=== PATIENT | male | born 1990 | race American Indian/Alaskan Native ===

== ENCOUNTER 2017-12-03 00:22 | Inpatient (IN) | payer SELFPAY ==
[2017-12-03] MEDS ORDERED: NACL 0.9% 500 ML 500 ML IV ONE (00:43)
[2017-12-03] MEDS ORDERED: NACL 0.9% 1000 ML 1,000 ML IV ONE ×5 (00:45→06:05)
--- NOTE | 2017-12-03 00:49 | Emergency Department Report ---
HPI - General Time Seen by Provider: 12/03/17 00:31 - HPI HPI: 27-year-old [place] male presents to the emergency department by EMS from home with possible drug overdose. The patient's mother allegedly called EMS. When EMS got to him he was diaphoretic, tachycardic and lethargic. He was given Narcan with some response. The patient admitted to EMS and now also to myself that he did crystal meth this evening by ingestion and that he has a history of using meth. Patient presents with a fever, tachycardia. He says he's been dealing with a cough and diarrhea over the past few days. He has a history of HIV but does not take any medications for it and is not followed by any primary care physician or infectious disease. No recent travel or sick contacts at home. ED Past Medical Hx - Medications Home Medications: Home Medications Medication Instructions Recorded Confirmed Last Taken Type No Known Home Medications [No 12/03/17 12/03/17 Unknown History Reported Home Medications] ED Review of Systems ROS: Stated complaint: POSS OD Other details as noted in HPI Constitutional: diaphoresis, fever Eyes: denies: eye pain, eye discharge, vision change ENT: denies: ear pain, throat pain Respiratory: cough. denies: shortness of breath Cardiovascular: denies: chest pain, palpitations Gastrointestinal: diarrhea. denies: vomiting Genitourinary: denies: urgency, dysuria Musculoskeletal: denies: back pain, joint swelling, arthralgia Skin: denies: rash, lesions Neurological: denies: headache, numbness Physical Exam - Physical Exam Physical Exam: GENERAL: Patient is ill-appearing. HENT: Normocephalic. Atraumatic. Patient has dry mucous membranes. EYES: Extraocular motions are intact. Pupils equal reactive to light bilaterally. NECK: Supple. Trachea is midline. CHEST/LUNGS: Clear to auscultation. There is no respiratory distress noted. HEART/CARDIOVASCULAR: Regular. There is moderate tachycardia. There is no murmur. ABDOMEN: Abdomen is soft, nontender. Patient has normal bowel sounds. SKIN: Skin is hot but dry. NEURO: Patient is drowsy but is arousable. Once awake, the patient is cooperative. The patient has normal speech. Withdrawals from painful stimuli. MUSCULOSKELETAL: There is no tenderness or deformity. There is no limitation range of motion. There is no evidence of acute injury. - Central Line Placement Right Femoral Consent Obtained: verbal consent Time Out Performed: Yes Patient Placed on Monitor/Pulse Ox: Yes MD Prep: mask, gown, gloves Central Line Prep: Chlorhexidine scrub Local Anesthesia Used: Lidocaine 1% Amount of Anesthesia Used (mls): 3 Ultrasound Used for Placement: Yes Central Line Lumen Inserted: triple Central Line Position: good blood return, all ports aspirated, flus, sutured in place with nyl Dressing Applied: Tegaderm, sterile gauze/tape Patient Tolerated Procedure: well Complications: none ED Medical Decision Making - Lab Data Result diagrams: 12/03/17 00:52 12/03/17 00:52 - EKG Data -: EKG Interpreted by Me EKG shows normal: sinus rhythm, axis, intervals, QRS complexes, ST-T waves Rate: tachycardia (115 bpm) - EKG Data When compared to previous EKG there are: previous EKG unavailable Interpretation: other (Sinus Tach) - Radiology Data Radiology results: image reviewed interpreted by me: Chest x-ray does not show any acute process. There are no pleural effusions, obvious pneumonia and there is no pneumothorax. Abdominal x-ray shows nonspecific rectal bowel gas. - Medical Decision Making The patient presented with nausea, vomiting and copious diarrhea as well as a fever and tachycardia after doing crystal meth. The patient was found by EMS to be lethargic, diaphoretic and hypotensive. There was some improvement in his mentation with some Narcan. Since the patient has been in the emergency department he has been easily arousable but is ill-appearing. Patient's labs show a lactic acidosis, acute renal insufficiency, elevated liver function tests. He has a fever, hypotension and tachycardia. He was given 3-4 L of IV fluid without any improvement of the hypotension and therefore a central line was placed and the patient was started on pressors. Abdominal and chest x-rays did not show any acute process. The patient has a presentation of septic shock but no source of infection has been found. C. difficile assay was sent and blood cultures also sent. He was started empirically on some Zosyn and Flagyl. Patient was admitted to the ICU by the hospitalist service. - Differential Diagnosis sepsis, septic shock, pneumonia, C. difficile, substance abuse Critical Care Time: Yes Critical care time in (mins) excluding proc time.: 35 Critical care attestation.: If time is entered above; I have spent that time in minutes in the direct care of this critically ill patient, excluding procedure time. Critical care time spent on this patient and during his initial evaluation, multiple re-evaluations , ordering and interpretation of labs and imaging, titration of pressures, IV fluid resuscitation, administration of medications, disposition planning. This does not include time spent doing the central line procedure. Critical Care Time: 35 minutes ED Disposition Clinical Impression: Methamphetamine abuse, Lactic acidosis, Septic shock Diarrhea Qualifiers: Diarrhea type: unspecified type Qualified Code(s): R19.7 - Diarrhea, unspecified Hypotension Qualifiers: Hypotension type: unspecified hypotension type Qualified Code(s): I95.9 - Hypotension, unspecified Disposition: DC-09 OP ADMIT IP TO THIS HOSP Is pt being admited?: Yes Condition: Serious Time of Disposition: 06:58
[2017-12-03] MEDS ORDERED: ZOSYN/NS 4.5GM/100ML 4.5 GM/100 ML VIAL IV ONE (01:00)
[2017-12-03 01:30] LABS: Alanine Aminotransferase 58 units/L (7-56); Albumin 2.5 g/dL (3.9-5); BUN/Creatinine Ratio 8; Blood Urea Nitrogen 16 mg/dL (9-20); Hemolysis Index 0
[2017-12-03 01:35] LABS: Basophils % (Auto) 0.2 % (0.0-1.8); Eosinophils % (Auto) 0.5 % (0.0-4.3); Hematocrit 36.1 % (35.5-45.6); Hemoglobin 11.3 gm/dl (11.8-15.2); Lymphocytes # (Auto) 0.4 K/mm3 (1.2-5.4); Lymphocytes % (Auto) 10.7 % (13.4-35.0); Mean Corpuscular HGB Conc 31 % (32-34); Mean Corpuscular Hemoglobin 23 pg (28-32); Mean Corpuscular Volume 74 fl (84-94); Platelet Count 304 K/mm3 (140-440); Red Blood Count 4.88 M/mm3 (3.65-5.03); Red Cell Distribution Width 13.6 % (13.2-15.2)
[2017-12-03] MEDS ORDERED: TYLENOL PO ONE (01:40)
--- NOTE | 2017-12-03 01:43 | XRay Report ---
FINAL REPORT PROCEDURE: XR CHEST 1V AP TECHNIQUE: Chest radiograph anteroposterior view. CPT 04710 HISTORY: fever COMPARISON: No prior studies are available for comparison. FINDINGS: Heart: Normal. Mediastinum/Vessels: Normal. Lungs/Pleural space: Lungs are expanded. There are no infiltrates, effusions or pneumothoraces.. Bony thorax: No acute osseous abnormality. Life support devices: None. IMPRESSION: No acute cardiopulmonary abnormality.
[2017-12-03] MEDS: LEVOPHED DRIP 4 MG/NS 250 ML 4 MG/250 ML BAG IV SCH ×2 (06:19→10:59)
--- NOTE | 2017-12-03 06:34 | XRay Report ---
FINAL REPORT PROCEDURE: XR ABDOMEN 2V TECHNIQUE: Abdominal radiograph, single supine AP view. HISTORY: diarrhea, abd pain, fever COMPARISON: No prior studies are available for comparison. FINDINGS: Bowel gas pattern:Nonobstructive. Masses or calcifications:None. Bony structures:No significant abnormality. Other:There is a right-sided central venous catheter. The tip is in the right common iliac vein.. IMPRESSION: There is no bowel obstruction, bowel wall thickening or fecal impaction. There is no free air.
[2017-12-03] MEDS ORDERED: NACL 0.9% 1000 ML IV ONE (08:14)
[2017-12-03] MEDS ORDERED: VANCOMYCIN 1,500 MG in NACL 0.9% 500 ML 500 ML IV ONE (08:14)
--- NOTE | 2017-12-03 08:19 | History and Physical Report ---
History of Present Illness Date of examination: 12/03/17 Date of admission: 12/03/17 Chief complaint: OD, HYPOTENSION, History of present illness: Patient is a 27 year old male with past medical hx of HIV non compliant with medications and also hx of IVDA, last use a day prior to presentation, presents to the ED via EMS with possible drug overdose. The patient's mother allegedly called EMS. When EMS got to him he was diaphoretic, tachycardic and lethargic. He was given Narcan with some response. The patient admitted to EMS, ED doctor and now also to myself that he did crystal meth this evening by ingestion and that he has a history of using meth. Patient presents with a fever, tachycardia and Hypotension. He says he's been dealing with a cough and diarrhea over the past few days. He has a history of HIV but does not take any medications for it and is not followed by any primary care physician or infectious disease, He inital was monitored by [facility]. No recent travel or sick contacts at home. In the ED the patient was started on sepsis protocol with 4.5 Liters of fluids given but remained hypotensive with SBP in the 80s requiring Initiation of PRESSORS. Past History Past Medical History: HIV/AIDS, other Past Surgical History: No surgical history Social history: no significant social history, IV drug use, full code. denies: smoking Family history: no significant family history Medications and Allergies Allergies Allergy/AdvReac Type Severity Reaction Status Date / Time No Known Allergies Allergy Unverified 12/03/17 00:48 Active Meds: Active Medications Norepinephrine (Levophed Drip 4 Mg/Ns 250 Ml) 4 mg in 250 mls @ 7.5 mls/hr IV TITR NATALIA; Protocol Last Titration: 12/03/17 07:50 Dose: 8 mcg/min, 30 mls/hr Sodium Chloride (Nacl 0.9% 1000 Ml) 1,000 mls @ 200 mls/hr IV ONCE ONE Stop: 12/03/17 11:04 Last Admin: 12/03/17 06:19 Dose: 200 mls/hr Ascorbic Acid 1,500 mg/ Sodium (Chloride) 53 mls @ 50 mls/30 min IV Q6HR NATALIA Thiamine HCl 200 mg/ Sodium (Chloride) 52 mls @ 100 mls/hr IV Q12HR NATALIA Vancomycin HCl 1,500 mg/ (Sodium Chloride) 515 mls @ 333 mls/hr IV ONCE ONE; Protocol Stop: 12/03/17 09:46 Piperacillin Sod/Tazobactam Sod (Zosyn/Ns 4.5gm/100ml) 4.5 gm in 100 mls @ 200 mls/hr IV Q8HR NATALIA; Protocol Sodium Chloride (Nacl 0.9% 1000 Ml) 2,250 ml 30 ml/kg (2250 ml) IV ONCE ONE Stop: 12/03/17 08:15 Review of Systems All systems: negative Constitutional: fever, chills Gastrointestinal: diarrhea Exam - Constitutional Vitals: Temp Pulse Resp BP Pulse Ox 99 F 116 H 21 71/29 99 12/03/17 04:49 12/03/17 07:15 12/03/17 07:15 12/03/17 07:15 12/03/17 07:15 Results - Labs CBC & Chem 7: 12/03/17 00:52 12/03/17 00:52 Labs: Laboratory Last Values WBC 3.5 K/mm3 (4.5-11.0) L 12/03/17 00:52 RBC 4.88 M/mm3 (3.65-5.03) 12/03/17 00:52 Hgb 11.3 gm/dl (11.8-15.2) L 12/03/17 00:52 Hct 36.1 % (35.5-45.6) 12/03/17 00:52 MCV 74 fl (84-94) L 12/03/17 00:52 MCH 23 pg (28-32) L 12/03/17 00:52 MCHC 31 % (32-34) L 12/03/17 00:52 RDW 13.6 % (13.2-15.2) 12/03/17 00:52 Plt Count 304 K/mm3 (140-440) 12/03/17 00:52 Lymph % (Auto) 10.7 % (13.4-35.0) L 12/03/17 00:52 [place] % (Auto) 1.0 % (0.0-7.3) 12/03/17 00:52 Eos % (Auto) 0.5 % (0.0-4.3) 12/03/17 00:52 Baso % (Auto) 0.2 % (0.0-1.8) 12/03/17 00:52 Lymph # 0.4 K/mm3 (1.2-5.4) L 12/03/17 00:52 [place] # 0.0 K/mm3 (0.0-0.8) 12/03/17 00:52 Eos # 0.0 K/mm3 (0.0-0.4) 12/03/17 00:52 Baso # 0.0 K/mm3 (0.0-0.1) 12/03/17 00:52 Seg Neutrophils % 87.6 % (40.0-70.0) H 12/03/17 00:52 Seg Neutrophils # 3.1 K/mm3 (1.8-7.7) 12/03/17 00:52 APTT 39.3 Sec. (24.2-36.6) H 12/03/17 00:52 Sodium 137 mmol/L (137-145) 12/03/17 00:52 Potassium 3.8 mmol/L (3.6-5.0) 12/03/17 00:52 Chloride 102.0 mmol/L (98-107) 12/03/17 00:52 Carbon Dioxide 23 mmol/L (22-30) 12/03/17 00:52 Anion Gap 16 mmol/L 12/03/17 00:52 BUN 16 mg/dL (9-20) 12/03/17 00:52 Creatinine 2.0 mg/dL (0.8-1.5) H 12/03/17 00:52 Estimated GFR 48 ml/min 12/03/17 00:52 BUN/Creatinine Ratio 8 % 12/03/17 00:52 Glucose 100 mg/dL (75-100) 12/03/17 00:52 Lactic Acid 3.30 mmol/L (0.7-2.0) H* 12/03/17 05:13 Calcium 8.0 mg/dL (8.4-10.2) L 12/03/17 00:52 Total Bilirubin 0.70 mg/dL (0.1-1.2) 12/03/17 00:52 AST 91 units/L (5-40) H 12/03/17 00:52 ALT 58 units/L (7-56) H 12/03/17 00:52 Alkaline Phosphatase 189 units/L (35-129) H 12/03/17 00:52 Total Creatine Kinase 112 units/L (55-170) 12/03/17 00:52 Troponin T < 0.010 ng/mL (0.00-0.029) 12/03/17 00:52 Total Protein 7.2 g/dL (6.3-8.2) 12/03/17 00:52 Albumin 2.5 g/dL (3.9-5) L 12/03/17 00:52 Albumin/Globulin Ratio 0.5 % 12/03/17 00:52 Salicylates < 0.3 mg/dL (2.8-20.0) L 12/03/17 00:52 Acetaminophen < 5.0 ug/mL (10.0-30.0) L 12/03/17 00:52 Plasma/Serum Alcohol < 0.01 % (0-0.07) 12/03/17 00:52 - Imaging and Cardiology Chest x-ray: image reviewed (NO NOTED ABNORMALITY) Abdominal x-ray: image reviewed (NO ABNORMALITY NOTED) Assessment and Plan Assessment and plan: Patient is a 27 year old male with past medical hx of HIV non compliant with medications and also hx of IVDA, last use a day prior to presentation, presents to the ED via EMS with possible drug overdose. The patient's mother allegedly called EMS. When EMS got to him he was diaphoretic, tachycardic and lethargic. He was given Narcan with some response. The patient admitted to EMS, ED doctor and now also to myself that he did crystal meth this evening by ingestion and that he has a history of using meth. Patient presents with a fever, tachycardia and Hypotension. He says he's been dealing with a cough and diarrhea over the past few days. He has a history of HIV but does not take any medications for it and is not followed by any primary care physician or infectious disease, He initial was monitored by [facility]. No recent travel or sick contacts at home. In the ED the patient was started on sepsis protocol with 4.5 Liters of fluids given but remained hypotensive with SBP in the 80s requiring Initiation of PRESSORS. SEPTIC SHOCK Acute Metabolic Encephalopathy-Resolved Severe Sepsis Lactic acidosis MIKE secondary to vasomotor nephropathy HIV ?presumed AIDS Non complaint Diarrhea-Colitis Anemia of chronic Disease IVDA-CRYSTAL METH LEUKOPENIA Tranaminitis Plan * Admit to ICU * Give additional fluid bolus * Continue pressors and wean as tolerated * follow blood cultures, stool for C/DIFF, * Burring Wheel Operator and ID consult * Emperic anbx with vanc, zosyn and flagy * Lymphocytes subset labs * Counselling provided about IVDA and medication * If no renal improvement will obtain Shoe Repair Supervisor consult * change out femoral line as soon as possible if pressor to continue * Replace electrolytes as needed * DVT/GI prophy * Plan of care discussed with patient and specialist. The high probability of a clinically significant, sudden or life threatening deterioration of the [GI, HOT SAW OPERATOR] system(s) required my full and direct attention, intervention and personal management. The aggregate critical care time was [75] minutes. This time is in addition to time spent performing reported procedures but includes the following: [X] Data Review and interpretation [X] Patient assessment and monitoring of vital signs [X] Documentation [X] Medication orders and management Advance Directives: Yes Plan of care discussed with patient/family: Yes
[2017-12-03] MEDS ORDERED: ZOSYN/NS 4.5GM/100ML 4.5 GM/100 ML VIAL IV SCH (09:00)
[2017-12-03] MEDS: FLAGYL 500 MG/100 ML 500 MG/100 ML BAG IV SCH ×2 (10:51→18:11)
--- NOTE | 2017-12-03 10:58 | Consultation ---
History of Present Illness - Reason for Consult Consult date: 12/03/17 septic shock Requesting physician: CARIDAD GOULD - History of Present Illness 27 y/o male with history of HIV non compliant with medications, lost HIV clinic f/u with [facility] 2 years ago and stopped his ART 2 years ago after losing his medical insurance, and also history IVDA - meth; admitted on 12/03/17 due to severe nausea, vomiting and diarrhea 24 hour after using IV meth. The patient's mother allegedly called EMS. When EMS got to him he was diaphoretic, tachycardic and lethargic. He was given Narcan with some response. He states he used tap water to dissolve meth and new syringe. Denies sharing needles. He is a MSM with multiple sexual partners, he does not use condom consistently. He reports cough with clear sputum for 24h since injection. In the ED, initial temperature 102.3, heart rate 148, respiration 24, O2 sat 95 , blood pressure 83/34. Initial white count 3.5. Hemoglobin 11.3. Platelets 304. Lactate 4. AST 91. ALT 58. Alkaline phosphatase 189. Creatinine 2. Chest x-ray negative. X-ray of the abdomen negative. Microbiology: Blood cultures: 12/03 ngtd Urine cultures: Current Antimicrobials: Zosyn Flagyl Vanco Previous Antimicrobials: Past History Past Medical History: HIV/AIDS, other Past Surgical History: No surgical history Social history: no significant social history, IV drug use, full code. denies: smoking Family history: no significant family history Medications and Allergies Allergies Allergy/AdvReac Type Severity Reaction Status Date / Time No Known Allergies Allergy Unverified 12/03/17 00:48 Home Medications Medication Instructions Recorded Confirmed Last Taken Type No Known Home Medications [No 12/03/17 12/03/17 Unknown History Reported Home Medications] Active Meds: Active Medications Norepinephrine (Levophed Drip 4 Mg/Ns 250 Ml) 4 mg in 250 mls @ 7.5 mls/hr IV TITR NATALIA; Protocol Last Titration: 12/03/17 10:50 Dose: 16 mcg/min, 60 mls/hr Sodium Chloride (Nacl 0.9% 1000 Ml) 1,000 mls @ 200 mls/hr IV ONCE ONE Stop: 12/03/17 11:04 Last Admin: 12/03/17 06:19 Dose: 200 mls/hr Ascorbic Acid 1,500 mg/ Sodium (Chloride) 53 mls @ 50 mls/30 min IV Q6HR NATALIA Thiamine HCl 200 mg/ Sodium (Chloride) 52 mls @ 100 mls/hr IV Q12HR NATALIA Piperacillin Sod/Tazobactam Sod (Zosyn/Ns 4.5gm/100ml) 4.5 gm in 100 mls @ 200 mls/hr IV Q8H NATALIA; Protocol Last Admin: 12/03/17 10:04 Dose: 200 mls/hr Metronidazole (Flagyl 500 Mg/100 Ml) 500 mg in 100 mls @ 100 mls/hr IV Q8H NATALIA ; Protocol Last Admin: 12/03/17 10:51 Dose: 100 mls/hr Review of Systems All systems: negative (as per HPI, rest of 10 point review of systems negative) Physical Examination - Physical Exam Narrative exam: General appearance: Alert in NAD, conversant Eyes: anicteric sclerae, moist conjunctivae; no lid-lag; PERRLA HENT: Atraumatic; oropharynx clear Neck: Trachea midline; supple, no thyromegaly or lymphadenopathy Lungs: CTA, with normal respiratory effort and no intercostal retractions CV: tachy Abdomen: Soft, non-tender; no masses or hepatosplenomegaly Extremities: No peripheral edema or extremity lymphadenopathy Skin: Normal temperature, turgor and texture; no rash, ulcers or subcutaneous nodules Psych: Appropriate affect, alert and oriented to person, place and time. Neuro: alert and oriented x 3. Moving all extermities Lines: right fem TLC - Constitutional Vitals: Vital Signs Temp Pulse Resp BP Pulse Ox 98.6 F 118 H 25 H 113/79 98 12/03/17 10:12 12/03/17 10:00 12/03/17 10:00 12/03/17 10:00 12/03/17 10:00 Temperature -Last 24 Hours Temperature 98.6 F Temperature 99 F Temperature 102.3 F Temperature 102.3 F Results - Labs CBC & Chem 7: 12/03/17 00:52 12/03/17 00:52 Labs: Abnormal lab results 12/03/17 12/03/17 12/03/17 Range/Units 00:52 00:52 00:52 WBC 3.5 L (4.5-11.0) K/mm3 Hgb 11.3 L (11.8-15.2) gm/dl MCV 74 L (84-94) fl MCH 23 L (28-32) pg MCHC 31 L (32-34) % Lymph % (Auto) 10.7 L (13.4-35.0) % Lymph # 0.4 L (1.2-5.4) K/mm3 Seg Neutrophils % 87.6 H (40.0-70.0) % APTT 39.3 H (24.2-36.6) Sec. Creatinine 2.0 H (0.8-1.5) mg/dL Lactic Acid (0.7-2.0) mmol/L Calcium 8.0 L (8.4-10.2) mg/dL AST 91 H (5-40) units/L ALT 58 H (7-56) units/L Alkaline Phosphatase 189 H (35-129) units/L Albumin 2.5 L (3.9-5) g/dL Salicylates (2.8-20.0) mg/dL Acetaminophen (10.0-30.0) ug/mL 12/03/17 12/03/17 12/03/17 Range/Units 00:52 00:52 00:52 WBC (4.5-11.0) K/mm3 Hgb (11.8-15.2) gm/dl MCV (84-94) fl MCH (28-32) pg MCHC (32-34) % Lymph % (Auto) (13.4-35.0) % Lymph # (1.2-5.4) K/mm3 Seg Neutrophils % (40.0-70.0) % APTT (24.2-36.6) Sec. Creatinine (0.8-1.5) mg/dL Lactic Acid 4.00 H* (0.7-2.0) mmol/L Calcium (8.4-10.2) mg/dL AST (5-40) units/L ALT (7-56) units/L Alkaline Phosphatase (35-129) units/L Albumin (3.9-5) g/dL Salicylates < 0.3 L (2.8-20.0) mg/dL Acetaminophen < 5.0 L (10.0-30.0) ug/mL 12/03/17 12/03/17 12/03/17 Range/Units 02:21 03:51 05:13 WBC (4.5-11.0) K/mm3 Hgb (11.8-15.2) gm/dl MCV (84-94) fl MCH (28-32) pg MCHC (32-34) % Lymph % (Auto) (13.4-35.0) % Lymph # (1.2-5.4) K/mm3 Seg Neutrophils % (40.0-70.0) % APTT (24.2-36.6) Sec. Creatinine (0.8-1.5) mg/dL Lactic Acid 2.80 H* 3.10 H* 3.30 H* (0.7-2.0) mmol/L Calcium (8.4-10.2) mg/dL AST (5-40) units/L ALT (7-56) units/L Alkaline Phosphatase (35-129) units/L Albumin (3.9-5) g/dL Salicylates (2.8-20.0) mg/dL Acetaminophen (10.0-30.0) ug/mL Assessment and Plan Assessment: 1) Severe Sepsis with septic shock: Present on admission, manifested by fever, tachycardia, hypotension, increased lactate. Etiology unclear. DDX. colitis, bacteremia, endocarditis, aspiration pneumonia. 2) Acute diarrhea: started after IV meth ? meth withdrawal. Doubt Cdiff 3) Acute encephalopathy: from meth intoxication/withdrawal 4) MIKE 5) HIV non compliant with medications, lost HIV clinic f/u with [facility] 2 years ago and stopped his ART 2 years ago after losing his medical insurance 6) Meth dependence 7) Multiple sexual partners, he does not use condom consistently. 8) Elevated LFTs - ? sepsis ? hepatitis. AST 91. ALT 58. Alkaline phosphatase 189. Plan: -follow-up blood cultures -check UA, urine culture -procalcitonin, C-reactive protein (CRP) -check TTE -once stable will get chest and abdominal CT -Obtain abdominal US eval GB and kidneys -stop zosyn -start cefepime -continue flagyl -continue vancomycin renally dosed -check CD4/VL, RPR, viral hepatitis Thank you for your consultation, will follow up with you. Mayra Albarado MD Infectious Diseases Specialist [facility] ([facility] M [phone] O [phone]
[2017-12-03 12:38] LABS: Bacteria,Urine 1+ /HPF (Negative); Bilirubin,Urine NEG (Negative); Blood,Urine LG (Negative); Color,Urine Amber (Yellow); Mucus,Urine FEW /HPF
[2017-12-03] MEDS: VITAMIN B-1 200 MG in NACL 0.9% 50 ML IV SCH ×2 (12:40→23:30)
[2017-12-03 12:44] LABS: RBC,Urine > 182.0 /HPF (0.0-6.0)
[2017-12-03 12:45] LABS: Benzodiazepines Screen,Urine PRESUMPTIVE NEGATIVE; Cannabinoid Screen,Urine PRESUMPTIVE NEGATIVE; Cocaine Screen,Urine PRESUMPTIVE NEGATIVE; Methadone Screen,Urine PRESUMPTIVE NEGATIVE; Opiate Screen,Urine PRESUMPTIVE NEGATIVE
[2017-12-03 12:56] LABS: Amphetamine Screen,Urine PRESUMPTIVE POSITIVE
[2017-12-03] MEDS: MAXIPIME/NS 2 GM/100 ML 2 GM/100 ML BAG IV SCH ×2 (13:15→23:38)
[2017-12-03 13:20] LABS: Hepatitis A Antibody IgM Non-Reactive (NonReactive); Hepatitis B Core IgM Non-Reactive (NonReactive); Hepatitis B Surface Antigen Non-Reactive (Negative); Hepatitis C Virus Antibody Reactive (NonReactive)
[2017-12-03] MEDS: ASCORBIC ACID 1,500 MG in NACL 0.9% 50 ML IV SCH ×3 (13:33→23:52)
[2017-12-03] MEDS ORDERED: ATIVAN ONE (14:16)
[2017-12-03] MEDS: ATIVAN IV SCH ×2 (18:10→23:52)
[2017-12-03] MEDS ORDERED: NACL 0.9% 1000 ML 1,000 ML ONE (22:16)
[2017-12-03] MEDS ORDERED: NACL 0.9% 1000 ML 1,000 ML IV SCH (23:45)
[2017-12-04] MEDS: FLAGYL 500 MG/100 ML 500 MG/100 ML BAG IV SCH ×3 (02:08→17:23)
[2017-12-04 05:05] LABS: Hematocrit 34.1 % (35.5-45.6); Hemoglobin 10.6 gm/dl (11.8-15.2); Mean Corpuscular HGB Conc 31 % (32-34); Mean Corpuscular Volume 73 fl (84-94); Platelet Count 251 K/mm3 (140-440); Red Blood Count 4.65 M/mm3 (3.65-5.03); Red Cell Distribution Width 14.5 % (13.2-15.2)
[2017-12-04 05:11] LABS: Albumin 2.3 g/dL (3.9-5); Calcium 7.4 mg/dL (8.4-10.2)
[2017-12-04 05:12] LABS: Mean Corpuscular Hemoglobin 23 pg (28-32)
[2017-12-04] MEDS: ATIVAN IV SCH (06:01)
--- NOTE | 2017-12-04 08:28 | Progress Note ---
Assessment and Plan Assessment and plan: Patient is a 27 year old male with past medical hx of HIV non compliant with medications and also hx of IVDA, last use a day prior to presentation, presents to the ED via EMS with possible drug overdose. The patient's mother allegedly called EMS. When EMS got to him he was diaphoretic, tachycardic and lethargic. He was given Narcan with some response. The patient admitted to EMS, ED doctor and now also to myself that he did crystal meth this evening by ingestion and that he has a history of using meth. Patient presents with a fever, tachycardia and Hypotension. He says he's been dealing with a cough and diarrhea over the past few days. He has a history of HIV but does not take any medications for it and is not followed by any primary care physician or infectious disease, He initial was monitored by nguyen. No recent travel or sick contacts at home. In the ED the patient was started on sepsis protocol with 4.5 Liters of fluids given but remained hypotensive with SBP in the 80s requiring Initiation of PRESSORS. SEPTIC SHOCK Acute Metabolic Encephalopathy positive RPR -r/o latent neurosyphilis Severe Sepsis Bacteremia with GNR Lactic acidosis MIKE secondary to vasomotor nephropathy HIV ?presumed AIDS Severe cardiomyopathy/LV mass Hyperbiliribuemia Non complaint Hepatits C Diarrhea-Colitis Anemia of chronic Disease IVDA-CRYSTAL METH LEUKOPENIA Transaminitis Plan * Continue Abx with Cefepime and Vanco. * Will Descalate abx when indicated by cultures. * Lumber puncture to eval for latent neurosyphylis * cardiology consult * NEPHROLOGY CONSULT * Continue pressors and wean as tolerated * stool negative for C-DIFF * Splitting Machine Feeder and ID consult-input noted * Lymphocytes subset labs * Counselling provided about IVDA,HIV, Hep c and medication Complaince * If no renal improvement will obtain Gallery Director consult * change out femoral line as soon as possible if pressor to continue * Replace electrolytes as needed * DVT/GI prophy * Plan of care discussed with patients mother and specialist. * Can transfer to medical floor. The high probability of a clinically significant, sudden or life threatening deterioration of the [GI, HEAD SHIPPER] system(s) required my full and direct attention, intervention and personal management. The aggregate critical care time was [75] minutes. This time is in addition to time spent performing reported procedures but includes the following: [X] Data Review and interpretation [X] Patient assessment and monitoring of vital signs [X] Documentation [X] Medication orders and management History Interval history: Patient seen and examined this am, confused. mother at bedside. Discussed case with nursing staff, lucía [facility] Hospitalist Physical - Physical exam Narrative exam: General appearance: Alert in NAD, conversant Eyes: anicteric sclerae, moist conjunctivae; no lid-lag; PERRLA HENT: Atraumatic; oropharynx clear Neck: Trachea midline; supple, no thyromegaly or lymphadenopathy Lungs: CTA, with normal respiratory effort and no intercostal retractions CV: tachy Abdomen: Soft, non-tender; no masses or hepatosplenomegaly Extremities: No peripheral edema or extremity lymphadenopathy Skin: Normal temperature, turgor and texture; no rash, ulcers or subcutaneous nodules Psych: disoriented. Neuro: disoriented. Moving all extermities - Constitutional Vitals: Temp Pulse Resp BP Pulse Ox 98.1 F 106 H 25 H 118/79 100 12/04/17 08:00 12/04/17 08:01 12/04/17 08:01 12/04/17 08:01 12/04/17 08:01 Results - Labs CBC & Chem 7: 12/04/17 04:02 12/04/17 04:02 Labs: Laboratory Last Values WBC 33.0 K/mm3 (4.5-11.0) H 12/04/17 04:02 RBC 4.65 M/mm3 (3.65-5.03) 12/04/17 04:02 Hgb 10.6 gm/dl (11.8-15.2) L 12/04/17 04:02 Hct 34.1 % (35.5-45.6) L 12/04/17 04:02 MCV 73 fl (84-94) L 12/04/17 04:02 MCH 23 pg (28-32) L 12/04/17 04:02 MCHC 31 % (32-34) L 12/04/17 04:02 RDW 14.5 % (13.2-15.2) 12/04/17 04:02 Plt Count 251 K/mm3 (140-440) 12/04/17 04:02 Lymph % (Auto) 10.7 % (13.4-35.0) L 12/03/17 00:52 Waller % (Auto) 1.0 % (0.0-7.3) 12/03/17 00:52 Eos % (Auto) 0.5 % (0.0-4.3) 12/03/17 00:52 Baso % (Auto) 0.2 % (0.0-1.8) 12/03/17 00:52 Lymph # 0.4 K/mm3 (1.2-5.4) L 12/03/17 00:52 Waller # 0.0 K/mm3 (0.0-0.8) 12/03/17 00:52 Eos # 0.0 K/mm3 (0.0-0.4) 12/03/17 00:52 Baso # 0.0 K/mm3 (0.0-0.1) 12/03/17 00:52 Seg Neutrophils % 87.6 % (40.0-70.0) H 12/03/17 00:52 Seg Neutrophils # 3.1 K/mm3 (1.8-7.7) 12/03/17 00:52 APTT 39.3 Sec. (24.2-36.6) H 12/03/17 00:52 Sodium 143 mmol/L (137-145) 12/04/17 04:02 Potassium 4.5 mmol/L (3.6-5.0) 12/04/17 04:02 Chloride 111.3 mmol/L (98-107) H 12/04/17 04:02 Carbon Dioxide 18 mmol/L (22-30) L 12/04/17 04:02 Anion Gap 18 mmol/L 12/04/17 04:02 BUN 30 mg/dL (9-20) H 12/04/17 04:02 Creatinine 1.9 mg/dL (0.8-1.5) H 12/04/17 04:02 Estimated GFR 51 ml/min 12/04/17 04:02 BUN/Creatinine Ratio 16 % 12/04/17 04:02 Glucose 74 mg/dL (75-100) L 12/04/17 04:02 Lactic Acid 2.70 mmol/L (0.7-2.0) H* 12/04/17 07:30 Calcium 7.4 mg/dL (8.4-10.2) L 12/04/17 04:02 Total Bilirubin 2.80 mg/dL (0.1-1.2) H 12/04/17 04:02 AST 85 units/L (5-40) H 12/04/17 04:02 ALT 58 units/L (7-56) H 12/04/17 04:02 Alkaline Phosphatase 132 units/L (35-129) H 12/04/17 04:02 Total Creatine Kinase 112 units/L (55-170) 12/03/17 00:52 Troponin T < 0.010 ng/mL (0.00-0.029) 12/03/17 00:52 C-Reactive Protein 4.30 mg/dL (0.00-1.30) H 12/03/17 12:30 Total Protein 6.9 g/dL (6.3-8.2) 12/04/17 04:02 Albumin 2.3 g/dL (3.9-5) L 12/04/17 04:02 Albumin/Globulin Ratio 0.5 % 12/04/17 04:02 Urine Color Janeth (Yellow) 12/03/17 12:03 Urine Turbidity Cloudy (Clear) 12/03/17 12:03 Urine pH 5.0 (5.0-7.0) 12/03/17 12:03 Ur Specific Conception 1.013 (1.003-1.030) 12/03/17 12:03 Urine Protein 30 mg/dl mg/dL (Negative) 12/03/17 12:03 Urine Glucose (UA) Neg mg/dL (Negative) 12/03/17 12:03 Urine Ketones Neg mg/dL (Negative) 12/03/17 12:03 Urine Blood Lg (Negative) 12/03/17 12:03 Urine Nitrite Neg (Negative) 12/03/17 12:03 Urine Bilirubin Neg (Negative) 12/03/17 12:03 Urine Urobilinogen 4.0 mg/dL (<2.0) 12/03/17 12:03 Ur Leukocyte Esterase Neg (Negative) 12/03/17 12:03 Urine WBC (Auto) 13.0 /HPF (0.0-6.0) H 12/03/17 12:03 Urine RBC (Auto) > 182.0 /HPF (0.0-6.0) 12/03/17 12:03 U Epithel Cells (Auto) < 1.0 /HPF (0-13.0) 12/03/17 12:03 Urine Bacteria (Auto) 1+ /HPF (Negative) 12/03/17 12:03 Urine Mucus Few /HPF 12/03/17 12:03 Salicylates < 0.3 mg/dL (2.8-20.0) L 12/03/17 00:52 Urine Opiates Screen Presumptive negative 12/03/17 12:03 Urine Methadone Screen Presumptive negative 12/03/17 12:03 Acetaminophen < 5.0 ug/mL (10.0-30.0) L 12/03/17 00:52 Ur Barbiturates Screen Presumptive negative 12/03/17 12:03 Ur Phencyclidine Scrn Presumptive negative 12/03/17 12:03 Ur Amphetamines Screen Presumptive positive 12/03/17 12:03 U Benzodiazepines Scrn Presumptive negative 12/03/17 12:03 Urine Cocaine Screen Presumptive negative 12/03/17 12:03 U Marijuana (THC) Screen Presumptive negative 12/03/17 12:03 Drugs of Abuse Note Disclamer 12/03/17 12:03 Plasma/Serum Alcohol < 0.01 % (0-0.07) 12/03/17 00:52 C. difficile Toxin A&B Negative (Negative) 12/03/17 04:40 Hepatitis A IgM Ab Non-reactive (NonReactive) 12/03/17 12:30 Hep Bs Antigen Non-reactive (Negative) 12/03/17 12:30 Hep B Core IgM Ab Non-reactive (NonReactive) 12/03/17 12:30 Hepatitis C Antibody Reactive (NonReactive) A 12/03/17 12:30 Blood Type O POSITIVE 12/03/17 08:20 Antibody Screen Negative 12/03/17 08:20 - Imaging and Cardiology CT Scan - head: image reviewed (no acute pathology)
--- NOTE | 2017-12-04 10:12 | Consultation ---
History of Present Illness Consult date: 12/04/17 Requesting physician: CARIDAD GOULD Consult reason: other (abnormal echo) History of present illness: The pt is a 27 YO male with a past medical history significant for HIV, non compliant with medications, lost HIV clinic f/u with [place] 2 years ago and stopped his ART 2 years ago after losing his medical insurance, and also history IV drug abuse - methamphetamine, and tobacco use. He is previously unknown to our practice. He was admitted on 12/03/17 due to severe nausea, vomiting and diarrhea 24 hour after using IV meth. The patient's mother allegedly called EMS. When EMS got to him he was diaphoretic, tachycardic and lethargic. He was given Narcan with some response. He states he used tap water to dissolve meth and new syringe. Denies sharing needles. In the ED, initial temperature 102.3, heart rate 148, blood pressure 83/34. Chest x-ray negative. X-ray of the abdomen negative. Pt mother at bedside also reports several month history of AVILES and decreased tolerance to physical activity. Echo done yesterday showed EF 25-30%, LA mild to mod dilated, RV mildly dilated, RA mod dilated, mild to mod MR, mod TR, RVsP 42mmHg, intracardiac mass affiliated with the lateral wall in some views. Cardiology has been consulted for further eval/ management. Past History Past Medical History: HIV/AIDS Past Surgical History: No surgical history Social history: no significant social history, smoking, IV drug use (meth), full code Family history: no significant family history Medications and Allergies Allergies Allergy/AdvReac Type Severity Reaction Status Date / Time No Known Allergies Allergy Unverified 12/03/17 00:48 Home Medications Medication Instructions Recorded Confirmed Last Taken Type No Known Home Medications [No 12/03/17 12/03/17 Unknown History Reported Home Medications] Active Meds: Active Medications Norepinephrine (Levophed Drip 4 Mg/Ns 250 Ml) 4 mg in 250 mls @ 7.5 mls/hr IV TITR NATALIA; Protocol Last Titration: 12/03/17 18:41 Dose: 0 mcg/min, 0 mls/hr Ascorbic Acid 1,500 mg/ Sodium (Chloride) 53 mls @ 50 mls/30 min IV Q6HR NATALIA Stop: 12/06/17 11:59 Last Admin: 12/03/17 23:52 Dose: 50 mls/30 min Thiamine HCl 200 mg/ Sodium (Chloride) 52 mls @ 100 mls/hr IV Q12HR NATALIA Stop: 12/06/17 09:59 Last Admin: 12/03/17 23:30 Dose: 100 mls/hr Metronidazole (Flagyl 500 Mg/100 Ml) 500 mg in 100 mls @ 100 mls/hr IV Q8H NATALIA ; Protocol Last Admin: 12/04/17 02:08 Dose: 100 mls/hr Cefepime HCl (Maxipime/Ns 2 Gm/100 Ml) 2 gm in 100 mls @ 200 mls/hr IV Q12HR NATALIA; Protocol Last Admin: 12/03/17 23:38 Dose: 200 mls/hr Vancomycin HCl (Vancomycin/Ns 1 Gm/250 Ml) 1 gm in 250 mls @ 167.007 mls/hr IV Q12HR NATALIA Sodium Chloride (Nacl 0.9% 1000 Ml) 1,000 mls @ 10 mls/hr IV DIRECT NATALIA Pneumococcal Polyvalent Vaccine (Pneumovax 23) 0.5 ml IM .ONCE ONE Stop: 12/04/17 12:01 Review of Systems Constitutional: fever, chills, no weight loss, no weight gain Ears, nose, mouth and throat: no ear pain, no nose pain, no sinus pressure, no sinus pain Cardiovascular: shortness of breath, dyspnea on exertion, no chest pain, no orthopnea, no palpitations, no rapid/irregular heart beat, no edema, no syncope , no lightheadedness Gastrointestinal: nausea, vomiting, diarrhea, no abdominal pain Genitourinary Male: no dysuria, no hematuria, no flank pain, no discharge, no urinary frequency, no urinary hesitancy Musculoskeletal: no neck stiffness, no neck pain, no shooting arm pain, no arm numbness/tingling, no low back pain, no shooting leg pain, no leg numbness/ tingling, no redness of joints Integumentary: no rash, no pruritis Neurological: no head injury, no paralysis, no weakness, no parathesias, no numbness, no tingling, no seizures, no syncope Psychiatric: no anxiety Endocrine: no cold intolerance, no heat intolerance Hematologic/Lymphatic: no easy bruising, no easy bleeding, no lymphadenopathy Allergic/Immunologic: no urticaria, no wheezing, no persistent infections Physical Examination Vital Signs Temp Pulse Resp BP Pulse Ox 102.3 F H 148 H 24 86/34 95 12/03/17 00:33 12/03/17 00:33 12/03/17 00:33 12/03/17 00:33 12/03/17 00:33 General appearance: no acute distress HEENT: Positive: PERRL, Normocephaly, Mucus Membranes Moist Neck: Positive: neck supple, trachea midline Cardiac: Positive: Regular Rhythm, S1/S2 Lungs: Positive: Decreased Breath Sounds Neuro: Positive: Grossly Intact Abdomen: Negative: Tender Skin: Positive: Clear. Negative: Rash, Wound Musculoskeletal: No Fluid Collection, No Pain, Normal Range of Motion Extremities: Absent: edema Results 12/04/17 04:02 12/04/17 04:02 Cardiac Enzymes 12/04/17 Range/Units 04:02 AST 85 H (5-40) units/L CBC 12/04/17 Range/Units 04:02 WBC 33.0 H (4.5-11.0) K/mm3 RBC 4.65 (3.65-5.03) M/mm3 Hgb 10.6 L (11.8-15.2) gm/dl Hct 34.1 L (35.5-45.6) % Plt Count 251 (140-440) K/mm3 Comprehensive Metabolic Panel 12/04/17 Range/Units 04:02 Sodium 143 (137-145) mmol/L Potassium 4.5 (3.6-5.0) mmol/L Chloride 111.3 H (98-107) mmol/L Carbon Dioxide 18 L (22-30) mmol/L BUN 30 H (9-20) mg/dL Creatinine 1.9 H (0.8-1.5) mg/dL Glucose 74 L (75-100) mg/dL Calcium 7.4 L (8.4-10.2) mg/dL AST 85 H (5-40) units/L ALT 58 H (7-56) units/L Alkaline Phosphatase 132 H (35-129) units/L Total Protein 6.9 (6.3-8.2) g/dL Albumin 2.3 L (3.9-5) g/dL - Imaging and Cardiology Echo: report reviewed ( EF 25-30%, LA mild to mod dilated, RV mildly dilated, RA mod dilated, mild to mod MR, mod TR, RVsP 42mmHg, intracardiac mass affiliated with the lateral wall in some views, unclear if this represents a hypertrophied papillary muscle. ) EKG: report reviewed, image reviewed EKG interpretations - Telemetry EKG Rhythm: Sinus Tachycardia - EKG Sinus rhythms and dysrhythmias: sinus tachycardia Assessment and Plan Assessment: Severe Sepsis with septic shock Acute diarrhea - started after IV meth ? meth withdrawal MIKE HIV Cardiomyopathy Questionable intracardiac mass Elevated LFTs IV methamphetamine use Tobacco use Plan: Await final echo read. Further recommendations to follow per hospital course. Currently stable cardiac status. Pt may tx out of ICU to telemetry from cardiology standpoint. Assessment and plan reviewed with pt and pt's mother at bedside. The patient has been seen in conjunction with Dr. Merritt who agrees with the assessment and plan of care.
[2017-12-04] MEDS: VITAMIN B-1 200 MG in NACL 0.9% 50 ML IV SCH ×2 (10:20→23:19)
[2017-12-04] MEDS: MAXIPIME/NS 2 GM/100 ML 2 GM/100 ML BAG IV SCH ×2 (10:29→23:07)
[2017-12-04] MEDS ORDERED: D5/0.45NS 1,000 ML IV SCH (11:00)
--- NOTE | 2017-12-04 11:00 | Consultation ---
History of Present Illness - Reason for Consult Consult date: 12/04/17 acute renal failure - History of Present Illness 27 y/o AAM with h/o HIV and non compliance with HAART, presented to the ED secondary to worsening nausea, vomiting, diarrhea, and poor po intake in the setting of recent methamphetamine use. Patient is in ICU, and remains confused and somnolent this am, so the majority of the history was obtained by talking to his mother at bedside and review of charts. Nephrology is being consulted secondary to acute kidney injury. Patient was sent to the ICU, initially on pressor support with levophed for ~12 hours before being weaned of. He was initally febrile and is being treated for septic shock. he is on broad spectrum antibiotics per ID. Cultures noted. Cdiff is negative. He remains non oliguric but it has been difficult to monitor because he has had issues with incontinence. Today his hemodynamics are improved. Per mother he has no previous h/o renal disease and has never been made aware of any elevated creatinine level. Past History Past Medical History: HIV/AIDS Past Surgical History: No surgical history Social history: no significant social history, smoking, IV drug use (meth), full code Family history: no significant family history Medications and Allergies Allergies Allergy/AdvReac Type Severity Reaction Status Date / Time No Known Allergies Allergy Unverified 12/03/17 00:48 Home Medications Medication Instructions Recorded Confirmed Last Taken Type No Known Home Medications [No 12/03/17 12/03/17 Unknown History Reported Home Medications] Active Meds: Active Medications Norepinephrine (Levophed Drip 4 Mg/Ns 250 Ml) 4 mg in 250 mls @ 7.5 mls/hr IV TITR NATALIA; Protocol Last Titration: 12/03/17 18:41 Dose: 0 mcg/min, 0 mls/hr Ascorbic Acid 1,500 mg/ Sodium (Chloride) 53 mls @ 50 mls/30 min IV Q6HR NATALIA Stop: 12/06/17 11:59 Last Admin: 12/03/17 23:52 Dose: 50 mls/30 min Thiamine HCl 200 mg/ Sodium (Chloride) 52 mls @ 100 mls/hr IV Q12HR NATALIA Stop: 12/06/17 09:59 Last Admin: 12/04/17 10:20 Dose: 100 mls/hr Metronidazole (Flagyl 500 Mg/100 Ml) 500 mg in 100 mls @ 100 mls/hr IV Q8H NATALIA ; Protocol Last Admin: 12/04/17 10:22 Dose: 100 mls/hr Cefepime HCl (Maxipime/Ns 2 Gm/100 Ml) 2 gm in 100 mls @ 200 mls/hr IV Q12HR NATALIA; Protocol Last Admin: 12/04/17 10:29 Dose: 200 mls/hr Vancomycin HCl (Vancomycin/Ns 1 Gm/250 Ml) 1 gm in 250 mls @ 167.007 mls/hr IV Q12HR NATALIA Dextrose/Sodium Chloride (D5/0.45ns) 1,000 mls @ 75 mls/hr IV DIRECT NATALIA Pneumococcal Polyvalent Vaccine (Pneumovax 23) 0.5 ml IM .ONCE ONE Stop: 12/04/17 12:01 Review of Systems ROS unobtainable: due to mental status Constitutional: fatigue, poor appetite Gastrointestinal: nausea, vomiting, diarrhea Exam - Vital Signs Vital signs: Vital Signs Temp Pulse Resp BP Pulse Ox 102.3 F H 148 H 24 86/34 95 12/03/17 00:33 12/03/17 00:33 12/03/17 00:33 12/03/17 00:33 12/03/17 00:33 - General Appearance General appearance: well-nourished, appears stated age, fatigue EENT: PERRL, mucous membranes dry Neck: Present: neck supple, trachea midline Respiratory: Clear to Ascultation, Normal Exam Heart: regular, normal heart rate Gastrointestinal: Present: normal, normoactive bowel sounds Integumentary: no rash, warm and dry Neurologic: confused, disoriented Musculoskeletal: Present: deferred Psychiatric: cooperative Results - Lab Results 12/04/17 04:02 12/04/17 04:02 Most recent lab results Calcium 7.4 mg/dL (8.4-10.2) L 12/04/17 04:02 Assessment and Plan - Patient Problems (1) Acute renal failure Current Visit: Yes Status: Acute Plan to address problem: Agree with current supportive measures. Patient to be starting on IVF. Will monitor response to fluids. Need to maintain MAP>mmHg, avoid nephrotoxins. Will also obtain a renal ultrasound. Will order urine electrolytes and follow up on UA. (2) Septic shock Current Visit: Yes Status: Acute Plan to address problem: On broad spectrum antibiotics with ID on board. C.Diff negative. Cultures are pending. His MIKE likely is pre-renal in origin in the setting of this septic shock/ decreased PO intake. (3) Lactic acidosis Current Visit: Yes Status: Acute Plan to address problem: Likely in the setting of the septic shock. As hemodynamics continue to improve and patient is on appropriate IVF and antibiotic coverage, lactic acidosis should improve. Will continue to monitor
[2017-12-04] MEDS: VANCOMYCIN/NS 1 GM/250 ML 1 GM/250 ML BAG IV SCH ×2 (11:09→22:57)
--- NOTE | 2017-12-04 11:45 | Progress Note ---
Assessment and Plan Assessment: 1) Severe Sepsis with septic shock: better, shock resolved, still low grade fever and worsening leukocytosis. Etiology unclear. DDX. colitis, bacteremia, endocarditis, aspiration pneumonia. -CRP=4.3 2) Acute diarrhea: started after IV meth ? meth withdrawal. C diff negative 3) Acute encephalopathy: from meth intoxication/withdrawal - better 4) MIKE 5) HIV non compliant with medications, lost HIV clinic f/u with [place] 2 years ago and stopped his ART 2 years ago after losing his medical insurance 6) Meth dependence 7) Multiple sexual partners, he does not use condom consistently. 8) Elevated LFTs - ? sepsis ? hepatitis C. AST 91. ALT 58. Alkaline phosphatase 189 - better 9) GVR in blood cx likely a contaminant 10) Hep C antibody positive Plan: -follow-up initial blood cultures -repeat blood cx -f/u procalcitonin -check TTE - pending -Obtain abdominal US eval GB and kidneys - pending -continue cefepime, flagyl and vancomycin renally dosed -f/u CD4/VL, RPR Thank you for your consultation, will follow up with you. Mayra Albarado MD Infectious Diseases Specialist [facility] ([facility] M [phone] O [phone] Subjective Date of service: 12/04/17 Principal diagnosis: septic shock Interval history: Feels better, tmax 100.3, off pressors, alert, talking. Microbiology: Blood cultures: 12/03 GVR 1 of 4 bottles Urine cultures: Stool C diff neg Current Antimicrobials: cefepime 12/03 Flagyl Vanco Previous Antimicrobials: Zosyn Objective - Exam Narrative Exam: General appearance: Alert in NAD, conversant Eyes: anicteric sclerae, moist conjunctivae; no lid-lag; PERRLA HENT: Atraumatic; oropharynx clear Neck: Trachea midline; supple, no thyromegaly or lymphadenopathy Lungs: CTA, with normal respiratory effort and no intercostal retractions CV: tachy Abdomen: Soft, non-tender; no masses or hepatosplenomegaly Extremities: No peripheral edema or extremity lymphadenopathy Skin: Normal temperature, turgor and texture; no rash, ulcers or subcutaneous nodules Psych: Appropriate affect, alert and oriented to person, place and time. Neuro: alert and oriented x 3. Moving all extermities Lines: right fem TLC - Constitutional Vitals: Vital Signs Temp Pulse Resp BP Pulse Ox 98.1 F 115 H 36 H 119/59 98 12/04/17 08:00 12/04/17 09:11 12/04/17 09:11 12/04/17 09:41 12/04/17 09:41 Temperature -Last 24 Hours Temperature 98.1 F Temperature 98.8 F Temperature 100.3 F Temperature 98.2 F Temperature 98.1 F Temperature 97.9 F - Labs CBC & Chem 7: 12/04/17 04:02 12/04/17 04:02 Labs: Abnormal lab results 12/03/17 12/03/17 12/03/17 Range/Units 12:03 12:30 12:30 WBC (4.5-11.0) K/mm3 Hgb (11.8-15.2) gm/dl Hct (35.5-45.6) % MCV (84-94) fl MCH (28-32) pg MCHC (32-34) % Chloride (98-107) mmol/L Carbon Dioxide (22-30) mmol/L BUN (9-20) mg/dL Creatinine (0.8-1.5) mg/dL Glucose (75-100) mg/dL Lactic Acid (0.7-2.0) mmol/L Calcium (8.4-10.2) mg/dL Total Bilirubin (0.1-1.2) mg/dL AST (5-40) units/L ALT (7-56) units/L Alkaline Phosphatase (35-129) units/L C-Reactive Protein 4.30 H (0.00-1.30) mg/dL Albumin (3.9-5) g/dL Urine WBC (Auto) 13.0 H (0.0-6.0) /HPF Hepatitis C Antibody Reactive A (NonReactive) 12/04/17 12/04/17 12/04/17 Range/Units 04:02 04:02 04:02 WBC 33.0 H (4.5-11.0) K/mm3 Hgb 10.6 L (11.8-15.2) gm/dl Hct 34.1 L (35.5-45.6) % MCV 73 L (84-94) fl MCH 23 L (28-32) pg MCHC 31 L (32-34) % Chloride 111.3 H (98-107) mmol/L Carbon Dioxide 18 L (22-30) mmol/L BUN 30 H (9-20) mg/dL Creatinine 1.9 H (0.8-1.5) mg/dL Glucose 74 L (75-100) mg/dL Lactic Acid 4.00 H* (0.7-2.0) mmol/L Calcium 7.4 L (8.4-10.2) mg/dL Total Bilirubin 2.80 H (0.1-1.2) mg/dL AST 85 H (5-40) units/L ALT 58 H (7-56) units/L Alkaline Phosphatase 132 H (35-129) units/L C-Reactive Protein (0.00-1.30) mg/dL Albumin 2.3 L (3.9-5) g/dL Urine WBC (Auto) (0.0-6.0) /HPF Hepatitis C Antibody (NonReactive) 12/04/17 12/04/17 Range/Units 05:46 07:30 WBC (4.5-11.0) K/mm3 Hgb (11.8-15.2) gm/dl Hct (35.5-45.6) % MCV (84-94) fl MCH (28-32) pg MCHC (32-34) % Chloride (98-107) mmol/L Carbon Dioxide (22-30) mmol/L BUN (9-20) mg/dL Creatinine (0.8-1.5) mg/dL Glucose (75-100) mg/dL Lactic Acid 4.20 H* 2.70 H* (0.7-2.0) mmol/L Calcium (8.4-10.2) mg/dL Total Bilirubin (0.1-1.2) mg/dL AST (5-40) units/L ALT (7-56) units/L Alkaline Phosphatase (35-129) units/L C-Reactive Protein (0.00-1.30) mg/dL Albumin (3.9-5) g/dL Urine WBC (Auto) (0.0-6.0) /HPF Hepatitis C Antibody (NonReactive)
[2017-12-04] MEDS ORDERED: PNEUMOVAX 23 IM ONE (12:00)
--- NOTE | 2017-12-04 12:12 | Ultrasound Report ---
ULTRASOUND ABDOMEN COMPLETE: TECHNIQUE: Transabdominal ultrasound with color Doppler interrogation. HISTORY: Septic shock. COMPARISON: none. FINDINGS: LIVER: Within normal limits. BILIARY SYSTEM: There is marketed diffuse gallbladder wall thickening measuring up to 9 mm. The gallbladder appears partially contracted. No evidence for cholelithiasis. The CBD measures 2 mm. PANCREAS: Normal. SPLEEN: Within normal limits. 10.4 cm in length. KIDNEYS: both kidneys demonstrate increased cortical echotexture consistent with nonspecific renal parenchymal disease. No evidence for focal renal lesion, nephrolithiasis or hydronephrosis. AORTA/IVC: Normal. ASCITES: Trace perihepatic ascites is identified. Small to medium bilateral pleural effusions are partially imaged. IMPRESSION: No evidence for acute cholecystitis, however, there is marked gallbladder wall thickening. No evidence for gallstones. The significance of this is unclear. Consider further evaluation with CT with contrast if renal function allows. Nonspecific renal parenchymal disease. Trace perihepatic ascites. Bilateral pleural effusions.
[2017-12-04] MEDS: ASCORBIC ACID 1,500 MG in NACL 0.9% 50 ML IV SCH ×4 (12:32→23:10)
--- NOTE | 2017-12-04 14:38 | Cat Scan Report ---
CT HEAD WITHOUT CONTRAST: HISTORY: Encephalopathy. TECHNIQUE: Sequential 2.5mm CT images. COMPARISON: none. FINDINGS: Cerebral Parenchyma: Within normal limits. Cerebellum: Within normal limits. Brainstem: Within normal limits. Ventricles: Normal. Sella: Normal. Extra-axial spaces: Normal. Basal Cisterns: Normal. Intracranial Hemorrhage: None. Midline Shift: None. Calvarium: Normal. Sinuses: Normal. Mastoid Air Cells: Normal. Visualized Orbits: Normal. IMPRESSION: Cranial CT scan within normal limits.
[2017-12-05] MEDS: FLAGYL 500 MG/100 ML 500 MG/100 ML BAG IV SCH ×3 (03:00→17:33)
[2017-12-05] MEDS: ASCORBIC ACID 1,500 MG in NACL 0.9% 50 ML IV SCH ×3 (06:11→17:30)
[2017-12-05 08:40] LABS: Hemoglobin 10.1 gm/dl (11.8-15.2); Mean Corpuscular HGB Conc 32 % (32-34); Mean Corpuscular Hemoglobin 23 pg (28-32); Mean Corpuscular Volume 73 fl (84-94); Platelet Count 230 K/mm3 (140-440); Red Blood Count 4.41 M/mm3 (3.65-5.03); Red Cell Distribution Width 14.4 % (13.2-15.2)
[2017-12-05 08:57] LABS: Alanine Aminotransferase 36 units/L (7-56); BUN/Creatinine Ratio 15; Blood Urea Nitrogen 19 mg/dL (9-20); Calcium 7.4 mg/dL (8.4-10.2); Hemolysis Index 3
[2017-12-05] MEDS: VITAMIN B-1 200 MG in NACL 0.9% 50 ML IV SCH ×2 (09:25→21:16)
--- NOTE | 2017-12-05 09:40 | Progress Note ---
Assessment and Plan - Patient Problems (1) Acute renal failure Current Visit: Yes Status: Acute Plan to address problem: Agree with current supportive measures. Renal function improving with IVF fluids. UA noted. Will quantify UPC. Will follow up on renal US. (2) Septic shock Current Visit: Yes Status: Acute Plan to address problem: On broad spectrum antibiotics with ID on board. C.Diff negative. Cultures pending. Per ID note there is concern for neurosyphillis and possible need for LP. His MIKE likely is pre-renal in origin in the setting of this septic shock/ decreased PO intake. His renal function is improving and his hemodynamics have improved. (3) Lactic acidosis Current Visit: Yes Status: Acute Plan to address problem: Likely in the setting of the septic shock. As hemodynamics continue to improve and patient is on appropriate IVF and antibiotic coverage, lactic acidosis should improve. Will continue to monitor Subjective Date of service: 12/05/17 Principal diagnosis: septic shock Interval history: No acute changes overnight. Was transferred out of the ICU. Labs noted, renal function improving. Objective - Vital Signs Vital signs: Vital Signs - 12hr 12/04/17 12/05/17 12/05/17 22:00 00:32 04:00 Temperature 98.3 F Pulse Rate 126 H 122 H Pulse Rate [ 126 H Apical] Respiratory 22 Rate Blood Pressure 102/46 [Right] O2 Sat by Pulse 91 Oximetry - General Appearance General appearance: well-nourished, appears stated age, fatigue EENT: mucous membranes moist Neck: no JVD, no thyromegaly Respiratory: Present: Normal Exam Cardiology: regular, normal heart rate Gastrointestinal: normal, normoactive bowel sounds Integumentary: no rash, warm and dry Neurologic: no focal deficit, confused Musculoskeletal: deferred Psychiatric: cooperative - Lab 12/05/17 07:25 12/05/17 07:25 Most recent lab results Calcium 7.4 mg/dL (8.4-10.2) L 12/05/17 07:25 - Imaging Kidney/bladder ultrasound: pending - Allied health notes Allied health notes reviewed: nursing
[2017-12-05] MEDS: MAXIPIME/NS 2 GM/100 ML 2 GM/100 ML BAG IV SCH ×2 (11:04→21:01)
--- NOTE | 2017-12-05 11:05 | Progress Note ---
Assessment and Plan Assessment: 1) Severe Sepsis with septic shock: better, shock resolved, fever resolved and worsening leukocytosis. Etiology unclear. DDX. colitis, bacteremia, endocarditis, aspiration pneumonia. -CRP=4.3 2) Acute diarrhea: started after IV meth ? meth withdrawal. C diff negative 3) Acute encephalopathy: from meth intoxication/withdrawal - better, should r/o neurosyphilis 4) MIKE - better 5) HIV non compliant with medications, lost HIV clinic f/u with [place] 2 years ago and stopped his ART 2 years ago after losing his medical insurance 6) Meth dependence 7) Multiple sexual partners, he does not use condom consistently. 8) Elevated LFTs - ? sepsis ? hepatitis C. AST 91. ALT 58. 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 reinfection vs reactivation. Should r/o neurosyphilis in light of AMS and advanced AIDS 12) ? Cardiomyopathy EF 25-30%? 13) MArked GB thickening ? cholecystitis Plan: -F/U lumbar puncture CSF results -I placed CSF orders -follow-up repeat blood cx -f/u procalcitonin -Cards consult in light of low EF -HIDA scan r/o cholecystitis -continue cefepime, flagyl and vancomycin renally dosed for now -f/u CD4/VL Thank you for your consultation, will follow up with you. Mayra Albarado MD Infectious Diseases Specialist [facility] [phone] O [phone] Subjective Date of service: 12/05/17 Principal diagnosis: septic shock Interval history: Feels better, no fever for 24h, alert, talking. Microbiology: Blood cultures: 12/03 GVR 1 of 4 bottles 12/04 ngtd Urine cultures: 12/03 neg Stool C diff neg Current Antimicrobials: cefepime 12/03 Flagyl Vanco Previous Antimicrobials: Zosyn Objective - Exam Narrative Exam: General appearance: Alert in NAD, conversant Eyes: anicteric sclerae, moist conjunctivae; no lid-lag; PERRLA HENT: Atraumatic; oropharynx clear Neck: Trachea midline; supple, no thyromegaly or lymphadenopathy Lungs: CTA, with normal respiratory effort and no intercostal retractions CV: tachy Abdomen: Soft, non-tender; no masses or hepatosplenomegaly Extremities: No peripheral edema or extremity lymphadenopathy Skin: Normal temperature, turgor and texture; no rash, ulcers or subcutaneous nodules Psych: Appropriate affect, alert and oriented to person, place and time. Neuro: alert and oriented x 3. Moving all extermities Lines: right fem TLC - Constitutional Vitals: Vital Signs Temp Pulse Resp BP Pulse Ox 98.3 F 126 H 22 102/46 91 12/05/17 00:32 12/05/17 04:00 12/05/17 00:32 12/05/17 00:32 12/05/17 00:32 Temperature -Last 24 Hours Temperature 98.3 F Temperature 98.7 F Temperature 98.5 F Temperature 97.6 F - Labs CBC & Chem 7: 12/05/17 07:25 12/05/17 07:25 Labs: Abnormal lab results 12/05/17 12/05/17 Range/Units 07:25 07:25 WBC 28.3 H (4.5-11.0) K/mm3 Hgb 10.1 L (11.8-15.2) gm/dl Hct 32.0 L (35.5-45.6) % MCV 73 L (84-94) fl MCH 23 L (28-32) pg Chloride 110.7 H (98-107) mmol/L Carbon Dioxide 19 L (22-30) mmol/L Calcium 7.4 L (8.4-10.2) mg/dL Total Bilirubin 1.40 H (0.1-1.2) mg/dL AST 46 H (5-40) units/L Alkaline Phosphatase 228 H (35-129) units/L Albumin 2.0 L (3.9-5) g/dL
[2017-12-05] MEDS: VANCOMYCIN/NS 1 GM/250 ML 1 GM/250 ML BAG IV SCH ×2 (11:06→21:02)
[2017-12-05 11:14] LABS: INR 1.02 (0.87-1.13)
[2017-12-05] MEDS ORDERED: XYLOCAINE 1% 20 mL ONE (11:50)
--- NOTE | 2017-12-05 12:40 | Procedure Note ---
Date of procedure: 12/05/17 Pre-op diagnosis: HIV, Hep C Post-op diagnosis: same Procedure: flouro guided lumbar puncture Findings: none Anesthesia: local Surgeon: MIGDALIA SEVILLA Estimated blood loss: none Pathology: list (4 CSF tubes) Specimen disposition: to lab Condition: stable Disposition: floor
[2017-12-05 13:15] LABS: Glucose,CSF 62 mg/dL
--- NOTE | 2017-12-05 13:56 | Progress Note ---
Assessment and Plan Assessment: Severe Sepsis with septic shock - improving Acute diarrhea - started after IV meth ? meth withdrawal MIKE - improving HIV Cardiomyopathy Questionable intracardiac mass Elevated LFTs IV methamphetamine use Tobacco use Plan: PA recommended for further evaluation of intracardiac mass. Indications, potential risks and benefits of PA reviewed with pt. He is agreeable to proceed with PA, however, he wishes to discuss this with his mother before fully committing to PA. Will tentatively plan for PA on Sunday AM pending pt and his mother are agreeable. Assessment and plan reviewed with pt at bedside. The patient has been seen in conjunction with Dr. Merritt who agrees with the assessment and plan of care. Subjective Date of service: 12/05/17 Principal diagnosis: septic shock Interval history: pt resting comfortably in bed, appears more alert today. no current complaints. In ST on tele with HR 100s. Objective Last Vital Signs Temp 98.3 F 12/05/17 00:32 Pulse 126 H 12/05/17 04:00 Resp 22 12/05/17 00:32 BP 102/46 12/05/17 00:32 Pulse Ox 91 12/05/17 00:32 - Physical Examination General: No Apparent Distress HEENT: Positive: PERRL, Normocephaly, Mucus Membranes Moist Neck: Positive: neck supple, trachea midline Cardiac: Positive: Regular Rhythm, S1/S2 Lungs: Positive: clear to auscultation Neuro: Positive: Grossly Intact Abdomen: Negative: Tender Skin: Positive: Clear. Negative: Rash, Wound Musculoskeletal: No Fluid Collection, No Pain, Normal Range of Motion Extremities: Absent: edema - Labs and Meds Cardiac Enzymes 12/05/17 Range/Units 07:25 AST 46 H (5-40) units/L Coagulation 12/05/17 Range/Units 10:41 PT 13.9 (12.2-14.9) Sec. INR 1.02 (0.87-1.13) CBC 12/05/17 Range/Units 07:25 WBC 28.3 H (4.5-11.0) K/mm3 RBC 4.41 (3.65-5.03) M/mm3 Hgb 10.1 L (11.8-15.2) gm/dl Hct 32.0 L (35.5-45.6) % Plt Count 230 (140-440) K/mm3 Comprehensive Metabolic Panel 12/05/17 Range/Units 07:25 Sodium 143 (137-145) mmol/L Potassium 3.7 (3.6-5.0) mmol/L Chloride 110.7 H (98-107) mmol/L Carbon Dioxide 19 L (22-30) mmol/L BUN 19 (9-20) mg/dL Creatinine 1.3 (0.8-1.5) mg/dL Glucose 85 (75-100) mg/dL Calcium 7.4 L (8.4-10.2) mg/dL AST 46 H (5-40) units/L ALT 36 (7-56) units/L Alkaline Phosphatase 228 H (35-129) units/L Total Protein 6.5 (6.3-8.2) g/dL Albumin 2.0 L (3.9-5) g/dL - Imaging and Cardiology EKG: report reviewed, image reviewed Echo: report reviewed ( EF 25-30%, LA mild to mod dilated, RV mildly dilated, RA mod dilated, mild to mod MR, mod TR, RVsP 42mmHg, intracardiac mass affiliated with the lateral wall in some views, unclear if this represents a hypertrophied papillary muscle. ) - EKG Sinus rhythms and dysrhythmias: sinus tachycardia - Allied health notes Allied health notes reviewed: nursing
[2017-12-05 14:19] LABS: Appearance,CSF Clear; Red Blood Cell,CSF 3 /mm3 (0-0); White Blood Cell,CSF 16 /mm3 (1-10)
--- NOTE | 2017-12-05 14:25 | Fluoroscopy Report ---
FLUOROSCOPY LUMBAR PUNCTURE History: Neurosyphilis Description of procedure: Informed consent was obtained. Sterile technique was utilized. 1% lidocaine for skin anesthesia. Using fluoroscopy guidance, lumbar puncture was performed at the L3-4 level. There was spontaneous return of clear CSF. 4 tubes of CSF fluid totaling approximately 8 cc was collected for laboratory analysis. No complications. 2 fluoroscopic images were saved during this procedure. Impression: Successful fluoroscopy guided lumbar puncture.
[2017-12-05 14:34] LABS: Total Cells Counted 100 /mm3
[2017-12-05 16:20] LABS: CD4/CD8 Ratio 0.24 (0.86-5.00)
--- NOTE | 2017-12-05 16:50 | Progress Note ---
Assessment and Plan Assessment and plan: Patient is a 27 year old male with past medical hx of HIV non compliant with medications and also hx of IVDA, last use a day prior to presentation, presents to the ED via EMS with possible drug overdose. The patient's mother allegedly called EMS. When EMS got to him he was diaphoretic, tachycardic and lethargic. He was given Narcan with some response. The patient admitted to EMS, ED doctor and now also to myself that he did crystal meth this evening by ingestion and that he has a history of using meth. Patient presents with a fever, tachycardia and Hypotension. He says he's been dealing with a cough and diarrhea over the past few days. He has a history of HIV but does not take any medications for it and is not followed by any primary care physician or infectious disease, He initial was monitored by nguyen. No recent travel or sick contacts at home. In the ED the patient was started on sepsis protocol with 4.5 Liters of fluids given but remained hypotensive with SBP in the 80s requiring Initiation of PRESSORS. SEPTIC SHOCK POSTIVE RPR evaluating for neurosyphilis Acute Metabolic Encephalopathy Severe Sepsis Bacteremia with GNR Lactic acidosis MIKE secondary to vasomotor nephropathy HIV ?presumed AIDS Severe cardiomyopathy/LV mass Hyperbiliribuemia-hida scan pending due to gallbladder thickining Non complaint Hepatits C [id number] C.DIFF Anemia of chronic Disease IVDA-CRYSTAL METH LEUKOPENIA Transaminitis Plan * Continue Abx with Cefepime and Vanco. * Will Descalate abx when indicated by cultures. 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 reinfection vs reactivation. Should r/o neurosyphilis in light of AMS and advanced AIDS * cardiology consult * C-Diff negative * NEPHROLOGY CONSULT * Continue pressors and wean as tolerated * stool negative for C-DIFF * Pasteuriser Operator and ID consult-input noted * Lymphocytes subset labs * Counselling provided about IVDA,HIV, Hep c and medication Complaince * If no renal improvement will obtain Distribution Superintendent consult * change out femoral line as soon as possible if pressor to continue * Replace electrolytes as needed * DVT/GI prophy * Plan of care discussed with patients mother and specialist. History Interval history: Patient seen and examined this am, Improving mental status. Hospitalist Physical - Physical exam Narrative exam: General appearance: Alert in NAD, conversant Eyes: anicteric sclerae, moist conjunctivae; no lid-lag; PERRLA HENT: Atraumatic; oropharynx clear Neck: Trachea midline; supple, no thyromegaly or lymphadenopathy Lungs: CTA, with normal respiratory effort and no intercostal retractions CV: tachy Abdomen: Soft, non-tender; no masses or hepatosplenomegaly Extremities: No peripheral edema or extremity lymphadenopathy Skin: Normal temperature, turgor and texture; no rash, ulcers or subcutaneous nodules Psych:calm. Neuro: aaox3 Moving all extermities - Constitutional Vitals: Temp Pulse Resp BP Pulse Ox 98.3 F 126 H 22 102/46 91 12/05/17 00:32 12/05/17 04:00 12/05/17 00:32 12/05/17 00:32 12/05/17 00:32 General appearance: Present: no acute distress Results - Labs CBC & Chem 7: 12/05/17 07:25 12/05/17 07:25 Labs: Laboratory Last Values WBC 28.3 K/mm3 (4.5-11.0) H 12/05/17 07:25 RBC 4.41 M/mm3 (3.65-5.03) 12/05/17 07:25 Hgb 10.1 gm/dl (11.8-15.2) L 12/05/17 07:25 Hct 32.0 % (35.5-45.6) L 12/05/17 07:25 MCV 73 fl (84-94) L 12/05/17 07:25 MCH 23 pg (28-32) L 12/05/17 07:25 MCHC 32 % (32-34) 12/05/17 07:25 RDW 14.4 % (13.2-15.2) 12/05/17 07:25 Plt Count 230 K/mm3 (140-440) 12/05/17 07:25 Lymph % (Auto) 10.7 % (13.4-35.0) L 12/03/17 00:52 [place] % (Auto) 1.0 % (0.0-7.3) 12/03/17 00:52 Eos % (Auto) 0.5 % (0.0-4.3) 12/03/17 00:52 Baso % (Auto) 0.2 % (0.0-1.8) 12/03/17 00:52 Lymph # 0.4 K/mm3 (1.2-5.4) L 12/03/17 00:52 [place] # 0.0 K/mm3 (0.0-0.8) 12/03/17 00:52 Eos # 0.0 K/mm3 (0.0-0.4) 12/03/17 00:52 Baso # 0.0 K/mm3 (0.0-0.1) 07 00:52 Seg Neutrophils % 87.6 % (40.0-70.0) H 12/03/17 00:52 Seg Neutrophils # 3.1 K/mm3 (1.8-7.7) 12/03/17 00:52 Abs Lymphs (Manual) 567 cells/uL (850-3900) L 12/03/17 08:20 PT 13.9 Sec. (12.2-14.9) 12/05/17 10:41 INR 1.02 (0.87-1.13) 12/05/17 10:41 APTT 39.3 Sec. (24.2-36.6) H 12/03/17 00:52 Sodium 143 mmol/L (137-145) 12/05/17 07:25 Potassium 3.7 mmol/L (3.6-5.0) 12/05/17 07:25 Chloride 110.7 mmol/L (98-107) H 12/05/17 07:25 Carbon Dioxide 19 mmol/L (22-30) L 12/05/17 07:25 Anion Gap 17 mmol/L 12/05/17 07:25 BUN 19 mg/dL (9-20) 12/05/17 07:25 Creatinine 1.3 mg/dL (0.8-1.5) 12/05/17 07:25 Estimated GFR > 60 ml/min 12/05/17 07:25 BUN/Creatinine Ratio 15 % 12/05/17 07:25 Glucose 85 mg/dL (75-100) 12/05/17 07:25 Lactic Acid 2.70 mmol/L (0.7-2.0) H* 12/04/17 07:30 Calcium 7.4 mg/dL (8.4-10.2) L 12/05/17 07:25 Total Bilirubin 1.40 mg/dL (0.1-1.2) H 12/05/17 07:25 AST 46 units/L (5-40) H 12/05/17 07:25 ALT 36 units/L (7-56) 12/05/17 07:25 Alkaline Phosphatase 228 units/L (35-129) H 12/05/17 07:25 Total Creatine Kinase 112 units/L (55-170) 12/03/17 00:52 Troponin T < 0.010 ng/mL (0.00-0.029) 12/03/17 00:52 C-Reactive Protein 4.30 mg/dL (0.00-1.30) H 12/03/17 12:30 Total Protein 6.5 g/dL (6.3-8.2) 12/05/17 07:25 Albumin 2.0 g/dL (3.9-5) L 12/05/17 07:25 Albumin/Globulin Ratio 0.4 % 12/05/17 07:25 Urine Color [place] (Yellow) 12/03/17 12:03 Urine Turbidity Cloudy (Clear) 12/03/17 12:03 Urine pH 5.0 (5.0-7.0) 12/03/17 12:03 Ur Specific [place] 1.013 (1.003-1.030) 12/03/17 12:03 Urine Protein 30 mg/dl mg/dL (Negative) 12/03/17 12:03 Urine Glucose (UA) Neg mg/dL (Negative) 12/03/17 12:03 Urine Ketones Neg mg/dL (Negative) 12/03/17 12:03 Urine Blood Lg (Negative) 12/03/17 12:03 Urine Nitrite Neg (Negative) 12/03/17 12:03 Urine Bilirubin Neg (Negative) 12/03/17 12:03 Urine Urobilinogen 4.0 mg/dL (<2.0) 12/03/17 12:03 Ur Leukocyte Esterase Neg (Negative) 12/03/17 12:03 Urine WBC (Auto) 13.0 /HPF (0.0-6.0) H 12/03/17 12:03 Urine RBC (Auto) > 182.0 /HPF (0.0-6.0) 12/03/17 12:03 U Epithel Cells (Auto) < 1.0 /HPF (0-13.0) 12/03/17 12:03 Urine Bacteria (Auto) 1+ /HPF (Negative) 12/03/17 12:03 Urine Mucus Few /HPF 12/03/17 12:03 CSF Appearance Clear 12/05/17 12:30 CSF Color Colorless 12/05/17 12:30 CSF WBC 16 /mm3 (1-10) 12/05/17 12:30 CSF RBC 3 /mm3 (0-0) 12/05/17 12:30 CSF Seg Neutrophils Not Reportable 12/05/17 12:30 CSF Lymphocytes % 95.0 % (40-80) 12/05/17 12:30 CSF Reactive Lymphs 4.0 % 12/05/17 12:30 CSF Monocytes % 1.0 % (15-45) 12/05/17 12:30 CSF Eosinophils % Not Reportable 12/05/17 12:30 CSF Basophils Not Reportable 12/05/17 12:30 CSF Pathologist Review C 12/05/17 12:30 CSF Glucose 62 mg/dL 12/05/17 12:30 CSF Total Protein 34 mg/dL 12/05/17 12:30 Salicylates < 0.3 mg/dL (2.8-20.0) L 12/03/17 00:52 Urine Opiates Screen Presumptive negative 12/03/17 12:03 Urine Methadone Screen Presumptive negative 12/03/17 12:03 Acetaminophen < 5.0 ug/mL (10.0-30.0) L 12/03/17 00:52 Ur Barbiturates Screen Presumptive negative 12/03/17 12:03 Ur Phencyclidine Scrn Presumptive negative 12/03/17 12:03 Ur Amphetamines Screen Presumptive positive 12/03/17 12:03 U Benzodiazepines Scrn Presumptive negative 12/03/17 12:03 Urine Cocaine Screen Presumptive negative 12/03/17 12:03 U Marijuana (THC) Screen Presumptive negative 12/03/17 12:03 Drugs of Abuse Note Disclamer 12/03/17 12:03 Plasma/Serum Alcohol < 0.01 % (0-0.07) 12/03/17 00:52 Lymph Enumerat CD4/CD8 0.24 (0.86-5.00) L 12/03/17 08:20 % CD3 Cells 72 % (57-85) 12/03/17 08:20 Absolute CD3 Count 409 cells/uL (840-3060) L 12/03/17 08:20 % CD4 Cells 13 % (30-61) L 12/03/17 08:20 Absolute CD4 Count 71 cells/uL (490-1740) L 12/03/17 08:20 % CD8 Cells 54 % (12-42) H 12/03/17 08:20 Absolute CD8 Count 294 cells/uL (180-1170) 12/03/17 08:20 % CD19 Cells 7 % (6-29) 12/03/17 08:20 Absolute CD19 Count 41 cells/uL (110-660) L 12/03/17 08:20 RPR Titer 1:32 12/03/17 12:30 RPR Reactive (Nonreactive) 12/03/17 12:30 C. difficile Toxin A&B Negative (Negative) 12/03/17 04:40 Hepatitis A IgM Ab Non-reactive (NonReactive) 12/03/17 12:30 Hep Bs Antigen Non-reactive (Negative) 12/03/17 12:30 Hep B Core IgM Ab Non-reactive (NonReactive) 12/03/17 12:30 Hepatitis C Antibody Reactive (NonReactive) A 12/03/17 12:30 Blood Type O POSITIVE 12/03/17 08:20 Antibody Screen Negative 12/03/17 08:20 - Imaging and Cardiology CT Scan - head: image reviewed (no acute pathology)
[2017-12-05 16:57] LABS: HIV-1 RNA QN PCR 5.77 Log cps/mL
[2017-12-05] MEDS: TYLENOL PO PRN (20:56)
[2017-12-06] MEDS: ASCORBIC ACID 1,500 MG in NACL 0.9% 50 ML IV SCH (01:35)
[2017-12-06] MEDS: FLAGYL 500 MG/100 ML 500 MG/100 ML BAG IV SCH ×3 (01:36→18:47)
[2017-12-06] MEDS: VANCOMYCIN/NS 1 GM/250 ML 1 GM/250 ML BAG IV SCH ×3 (05:38→18:48)
[2017-12-06 06:33] LABS: Hematocrit 32.2 % (35.5-45.6); Hemoglobin 10.2 gm/dl (11.8-15.2); Mean Corpuscular HGB Conc 32 % (32-34); Mean Corpuscular Volume 73 fl (84-94); Platelet Count 243 K/mm3 (140-440); Red Blood Count 4.44 M/mm3 (3.65-5.03); Red Cell Distribution Width 14.2 % (13.2-15.2)
[2017-12-06 06:51] LABS: Mean Corpuscular Hemoglobin 23 pg (28-32)
[2017-12-06 06:58] LABS: Alanine Aminotransferase 27 units/L (7-56); Albumin 1.8 g/dL (3.9-5); BUN/Creatinine Ratio 12; Blood Urea Nitrogen 15 mg/dL (9-20); Calcium 7.5 mg/dL (8.4-10.2); Hemolysis Index 1
--- NOTE | 2017-12-06 10:05 | Nuclear Medicine Report ---
HIDA WITHOUT CCK INDICATION: Acute cholecystitis. COMPARISON: None similar. FINDINGS: Dynamic right upper quadrant imaging performed in the anterior projection over 60 minutes following uneventful intravenous administration of 5.5 mCi of Technetium 99m Choletec. A 90 minute frontal acquisition also performed. Prompt and homogenous hepatic radiotracer uptake with mild subsequent washout seen with gallbladder activity noted conclusively at 45 minutes while bowel activity seen at 30 minutes. CONCLUSION: No evidence of cholecystitis, as described. Thank you for the opportunity to participate in this patient's care.
--- NOTE | 2017-12-06 10:56 | Progress Note ---
Assessment and Plan - Patient Problems (1) Acute renal failure Current Visit: Yes Status: Acute Plan to address problem: Agree with current supportive measures. Renal function improving with IVF fluids. UA noted. Will quantify UPC. Will follow up on renal US. (2) Septic shock Current Visit: Yes Status: Acute Plan to address problem: On broad spectrum antibiotics with ID on board. C.Diff negative. Cultures pending. Per ID note there was concern for neurosyphillis and patient had an LP. His MIKE likely is pre-renal in origin in the setting of this septic shock/ decreased PO intake. His renal function is improving and his hemodynamics have improved. Do want to order a renal US and will repeat UA and UPC. (3) Lactic acidosis Current Visit: Yes Status: Acute Plan to address problem: Likely in the setting of the septic shock. As hemodynamics continue to improve and patient is on appropriate IVF and antibiotic coverage, lactic acidosis has improved. Will continue to monitor (4) HIV disease Current Visit: Yes Status: Acute Plan to address problem: Management per infectious disease team. Subjective Date of service: 12/06/17 Principal diagnosis: septic shock Interval history: No acute issues overnight. His labs are showing improvement in renal function. He has been tolerating PO intake well. Remains on antibiotic coverage with flagyl/cefepime/vancomycin. Cultures to date have been negative. Patient did undergo LP yesterday due to concern for possible neurosyphillis. Objective - Vital Signs Vital signs: Vital Signs - 12hr 12/06/17 12/06/17 00:40 05:09 Temperature 101.7 F H 99.4 F Pulse Rate 59 L 104 H Respiratory 20 20 Rate Blood Pressure 107/69 97/54 [Right] O2 Sat by Pulse 92 98 Oximetry - General Appearance General appearance: well-developed, well-nourished, appears stated age EENT: PERRL, mucous membranes moist Neck: no JVD, no thyromegaly Respiratory: Present: Clear to Ascultation, Normal Exam Cardiology: regular, normal heart rate Gastrointestinal: normal, normoactive bowel sounds Integumentary: no rash, warm and dry Neurologic: no focal deficit, alert and oriented x3, CN 3-12 intact Musculoskeletal: deferred Psychiatric: mood/affect appropriate, cooperative - Lab 12/06/17 06:07 12/06/17 06:07 Most recent lab results Calcium 7.5 mg/dL (8.4-10.2) L 12/06/17 06:07 - Allied health notes Allied health notes reviewed: nursing
[2017-12-06] MEDS: MAXIPIME/NS 2 GM/100 ML 2 GM/100 ML BAG IV SCH ×2 (11:44→21:23)
--- NOTE | 2017-12-06 13:02 | Progress Note ---
Assessment and Plan Assessment: Severe Sepsis with septic shock - improving Acute diarrhea - started after IV meth ? meth withdrawal MIKE - improving HIV Cardiomyopathy Questionable intracardiac mass Elevated LFTs IV methamphetamine use Tobacco use Plan: Pt and his mother are agreeable to proceed with PA in AM. NPO after MN. PA scheduled for 7:30AM with anesthesia. Assessment and plan reviewed with pt and pt's mother at bedside. The patient has been seen in conjunction with Dr. Merritt who agrees with the assessment and plan of care. Subjective Date of service: 12/06/17 Principal diagnosis: septic shock Interval history: pt resting comfortably in bed, no current complaints. In ST on tele with HR 100s. mother at bedside. Objective Last Vital Signs Temp 99.4 F 12/06/17 05:09 Pulse 104 H 12/06/17 05:09 Resp 20 12/06/17 05:09 BP 97/54 12/06/17 05:09 Pulse Ox 98 12/06/17 05:09 - Physical Examination General: No Apparent Distress HEENT: Positive: PERRL, Normocephaly, Mucus Membranes Moist Neck: Positive: neck supple, trachea midline Cardiac: Positive: Regular Rhythm, S1/S2 Lungs: Positive: clear to auscultation Neuro: Positive: Grossly Intact Abdomen: Negative: Tender Skin: Positive: Clear. Negative: Rash, Wound Musculoskeletal: No Fluid Collection, No Pain, Normal Range of Motion Extremities: Absent: edema - Labs and Meds Cardiac Enzymes 12/06/17 Range/Units 06:07 AST 37 (5-40) units/L CBC 12/06/17 Range/Units 06:07 WBC 19.1 H (4.5-11.0) K/mm3 RBC 4.44 (3.65-5.03) M/mm3 Hgb 10.2 L (11.8-15.2) gm/dl Hct 32.2 L (35.5-45.6) % Plt Count 243 (140-440) K/mm3 Comprehensive Metabolic Panel 12/06/17 Range/Units 06:07 Sodium 141 (137-145) mmol/L Potassium 3.6 (3.6-5.0) mmol/L Chloride 111.8 H (98-107) mmol/L Carbon Dioxide 18 L (22-30) mmol/L BUN 15 (9-20) mg/dL Creatinine 1.3 (0.8-1.5) mg/dL Glucose 83 (75-100) mg/dL Calcium 7.5 L (8.4-10.2) mg/dL AST 37 (5-40) units/L ALT 27 (7-56) units/L Alkaline Phosphatase 387 H (35-129) units/L Total Protein 6.4 (6.3-8.2) g/dL Albumin 1.8 L (3.9-5) g/dL - Imaging and Cardiology EKG: report reviewed, image reviewed Echo: report reviewed ( EF 25-30%, LA mild to mod dilated, RV mildly dilated, RA mod dilated, mild to mod MR, mod TR, RVsP 42mmHg, intracardiac mass affiliated with the lateral wall in some views, unclear if this represents a hypertrophied papillary muscle. ) - EKG Sinus rhythms and dysrhythmias: sinus tachycardia - Allied health notes Allied health notes reviewed: nursing
--- NOTE | 2017-12-06 18:09 | Progress Note ---
Assessment and Plan Assessment and plan: Patient is a 27 year old male with past medical hx of HIV non compliant with medications and also hx of IVDA, last use a day prior to presentation, presents to the ED via EMS with possible drug overdose. The patient's mother allegedly called EMS. When EMS got to him he was diaphoretic, tachycardic and lethargic. He was given Narcan with some response. The patient admitted to EMS, ED doctor and now also to myself that he did crystal meth this evening by ingestion and that he has a history of using meth. Patient presents with a fever, tachycardia and Hypotension. He says he's been dealing with a cough and diarrhea over the past few days. He has a history of HIV but does not take any medications for it and is not followed by any primary care physician or infectious disease, He initial was monitored by nguyen. No recent travel or sick contacts at home. In the ED the patient was started on sepsis protocol with 4.5 Liters of fluids given but remained hypotensive with SBP in the 80s requiring Initiation of PRESSORS. SEPTIC SHOCK POSTIVE RPR evaluating for neurosyphilis Acute Metabolic Encephalopathy Severe Sepsis Bacteremia with GNR Lactic acidosis MIKE secondary to vasomotor nephropathy HIV ?presumed AIDS Severe cardiomyopathy/LV mass Hyperbiliribuemia-hida scan pending due to gallbladder thickining Non complaint Hepatits C Roofbftj-Eaorbjc-[id number] C.DIFF Anemia of chronic Disease IVDA-CRYSTAL METH LEUKOPENIA Transaminitis cough Plan * Continue Abx with Cefepime and Vanco. * check chest xray * cough suppresant * Will Descalate abx when indicated by cultures. 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 reinfection vs reactivation. Should r/o neurosyphilis in light of AMS and advanced AIDS * cardiology consult * C-Diff negative * NEPHROLOGY CONSULT * Continue pressors and wean as tolerated * stool negative for C-DIFF * Edi Programmer Analyst and ID consult-input noted * Lymphocytes subset labs * Counselling provided about IVDA,HIV, Hep c and medication Complaince * If no renal improvement will obtain Chain Saw Driver consult * change out femoral line as soon as possible if pressor to continue * Replace electrolytes as needed * DVT/GI prophy * Plan of care discussed with patients mother and specialist. History Interval history: Patient seen and examined this am, Improving mental status. Reports cough, non productive Hospitalist Physical - Physical exam Narrative exam: General appearance: Alert in NAD, conversant Eyes: anicteric sclerae, moist conjunctivae; no lid-lag; PERRLA HENT: Atraumatic; oropharynx clear Neck: Trachea midline; supple, no thyromegaly or lymphadenopathy Lungs: CTA, with normal respiratory effort and no intercostal retractions CV: tachy Abdomen: Soft, non-tender; no masses or hepatosplenomegaly Extremities: No peripheral edema or extremity lymphadenopathy Skin: Normal temperature, turgor and texture; no rash, ulcers or subcutaneous nodules Psych:calm. Neuro: aaox3 Moving all extermities - Constitutional Vitals: Temp Pulse Resp BP Pulse Ox 99.4 F 104 H 20 97/54 98 12/06/17 05:09 12/06/17 05:09 12/06/17 05:09 12/06/17 05:09 12/06/17 05:09 General appearance: Present: no acute distress Results - Labs CBC & Chem 7: 12/07/17 06:20 12/07/17 06:20 Labs: Laboratory Last Values WBC 19.1 K/mm3 (4.5-11.0) H 12/06/17 06:07 RBC 4.44 M/mm3 (3.65-5.03) 12/06/17 06:07 Hgb 10.2 gm/dl (11.8-15.2) L 12/06/17 06:07 Hct 32.2 % (35.5-45.6) L 12/06/17 06:07 MCV 73 fl (84-94) L 12/06/17 06:07 MCH 23 pg (28-32) L 12/06/17 06:07 MCHC 32 % (32-34) 12/06/17 06:07 RDW 14.2 % (13.2-15.2) 12/06/17 06:07 Plt Count 243 K/mm3 (140-440) 12/06/17 06:07 Lymph % (Auto) 10.7 % (13.4-35.0) L 12/03/17 00:52 [place] % (Auto) 1.0 % (0.0-7.3) 12/03/17 00:52 Eos % (Auto) 0.5 % (0.0-4.3) 12/03/17 00:52 Baso % (Auto) 0.2 % (0.0-1.8) 12/03/17 00:52 Lymph # 0.4 K/mm3 (1.2-5.4) L 12/03/17 00:52 [place] # 0.0 K/mm3 (0.0-0.8) 12/03/17 00:52 Eos # 0.0 K/mm3 (0.0-0.4) 12/03/17 00:52 Baso # 0.0 K/mm3 (0.0-0.1) 12/03/17 00:52 Seg Neutrophils % 87.6 % (40.0-70.0) H 12/03/17 00:52 Seg Neutrophils # 3.1 K/mm3 (1.8-7.7) 12/03/17 00:52 Abs Lymphs (Manual) 567 cells/uL (850-3900) L 12/03/17 08:20 PT 13.9 Sec. (12.2-14.9) 12/05/17 10:41 INR 1.02 (0.87-1.13) 12/05/17 10:41 APTT 39.3 Sec. (24.2-36.6) H 12/03/17 00:52 Sodium 141 mmol/L (137-145) 12/06/17 06:07 Potassium 3.6 mmol/L (3.6-5.0) 12/06/17 06:07 Chloride 111.8 mmol/L (98-107) H 12/06/17 06:07 Carbon Dioxide 18 mmol/L (22-30) L 12/06/17 06:07 Anion Gap 15 mmol/L 12/06/17 06:07 BUN 15 mg/dL (9-20) 12/06/17 06:07 Creatinine 1.3 mg/dL (0.8-1.5) 12/06/17 06:07 Estimated GFR > 60 ml/min 12/06/17 06:07 BUN/Creatinine Ratio 12 % 12/06/17 06:07 Glucose 83 mg/dL (75-100) 12/06/17 06:07 Lactic Acid 2.70 mmol/L (0.7-2.0) H* 12/04/17 07:30 Calcium 7.5 mg/dL (8.4-10.2) L 12/06/17 06:07 Total Bilirubin 1.40 mg/dL (0.1-1.2) H 12/06/17 06:07 AST 37 units/L (5-40) 12/06/17 06:07 ALT 27 units/L (7-56) 12/06/17 06:07 Alkaline Phosphatase 387 units/L (35-129) H 12/06/17 06:07 Total Creatine Kinase 112 units/L (55-170) 12/03/17 00:52 Troponin T < 0.010 ng/mL (0.00-0.029) 12/03/17 00:52 C-Reactive Protein 4.30 mg/dL (0.00-1.30) H 12/03/17 12:30 Total Protein 6.4 g/dL (6.3-8.2) 12/06/17 06:07 Albumin 1.8 g/dL (3.9-5) L 12/06/17 06:07 Albumin/Globulin Ratio 0.4 % 12/06/17 06:07 Urine Color Janeth (Yellow) 12/03/17 12:03 Urine Turbidity Cloudy (Clear) 12/03/17 12:03 Urine pH 5.0 (5.0-7.0) 12/03/17 12:03 Ur Specific [place] 1.013 (1.003-1.030) 12/03/17 12:03 Urine Protein 30 mg/dl mg/dL (Negative) 12/03/17 12:03 Urine Glucose (UA) Neg mg/dL (Negative) 12/03/17 12:03 Urine Ketones Neg mg/dL (Negative) 12/03/17 12:03 Urine Blood Lg (Negative) 12/03/17 12:03 Urine Nitrite Neg (Negative) 12/03/17 12:03 Urine Bilirubin Neg (Negative) 12/03/17 12:03 Urine Urobilinogen 4.0 mg/dL (<2.0) 12/03/17 12:03 Ur Leukocyte Esterase Neg (Negative) 12/03/17 12:03 Urine WBC (Auto) 13.0 /HPF (0.0-6.0) H 12/03/17 12:03 Urine RBC (Auto) > 182.0 /HPF (0.0-6.0) 12/03/17 12:03 U Epithel Cells (Auto) < 1.0 /HPF (0-13.0) 12/03/17 12:03 Urine Bacteria (Auto) 1+ /HPF (Negative) 12/03/17 12:03 Urine Mucus Few /HPF 12/03/17 12:03 CSF Appearance Clear 12/05/17 12:30 CSF Color Colorless 12/05/17 12:30 CSF WBC 16 /mm3 (1-10) 12/05/17 12:30 CSF RBC 3 /mm3 (0-0) 12/05/17 12:30 CSF Seg Neutrophils Not Reportable 12/05/17 12:30 CSF Lymphocytes % 95.0 % (40-80) 12/05/17 12:30 CSF Reactive Lymphs 4.0 % 12/05/17 12:30 CSF Monocytes % 1.0 % (15-45) 12/05/17 12:30 CSF Eosinophils % Not Reportable 12/05/17 12:30 CSF Basophils Not Reportable 12/05/17 12:30 CSF Pathologist Review C 12/05/17 12:30 CSF Glucose 62 mg/dL 12/05/17 12:30 CSF Total Protein 34 mg/dL 12/05/17 12:30 Salicylates < 0.3 mg/dL (2.8-20.0) L 12/03/17 00:52 Urine Opiates Screen Presumptive negative 12/03/17 12:03 Urine Methadone Screen Presumptive negative 12/03/17 12:03 Acetaminophen < 5.0 ug/mL (10.0-30.0) L 12/03/17 00:52 Ur Barbiturates Screen Presumptive negative 12/03/17 12:03 Ur Phencyclidine Scrn Presumptive negative 12/03/17 12:03 Ur Amphetamines Screen Presumptive positive 12/03/17 12:03 U Benzodiazepines Scrn Presumptive negative 12/03/17 12:03 Urine Cocaine Screen Presumptive negative 12/03/17 12:03 U Marijuana (THC) Screen Presumptive negative 12/03/17 12:03 Drugs of Abuse Note Disclamer 12/03/17 12:03 Plasma/Serum Alcohol < 0.01 % (0-0.07) 12/03/17 00:52 Lymph Enumerat CD4/CD8 0.24 (0.86-5.00) L 12/03/17 08:20 % CD3 Cells 72 % (57-85) 12/03/17 08:20 Absolute CD3 Count 409 cells/uL (840-3060) L 12/03/17 08:20 % CD4 Cells 13 % (30-61) L 12/03/17 08:20 Absolute CD4 Count 71 cells/uL (490-1740) L 12/03/17 08:20 % CD8 Cells 54 % (12-42) H 12/03/17 08:20 Absolute CD8 Count 294 cells/uL (180-1170) 12/03/17 08:20 % CD19 Cells 7 % (6-29) 12/03/17 08:20 Absolute CD19 Count 41 cells/uL (110-660) L 12/03/17 08:20 RPR Titer 1:32 12/03/17 12:30 RPR Reactive (Nonreactive) 12/03/17 12:30 T.pallidum Ab (FTA-ABS) Reactive (Nonreactive) H 12/03/17 12:30 C. difficile Toxin A&B Negative (Negative) 12/03/17 04:40 Hepatitis A IgM Ab Non-reactive (NonReactive) 12/03/17 12:30 Hep Bs Antigen Non-reactive (Negative) 12/03/17 12:30 Hep B Core IgM Ab Non-reactive (NonReactive) 12/03/17 12:30 Hepatitis C Antibody Reactive (NonReactive) A 12/03/17 12:30 HIV-1 RNA PCR copies/ml [id number] Copies/mL H 12/03/17 12:30 HIV-1 RNA (PCR) log 5.77 Log cps/mL H 12/03/17 12:30 Blood Type O POSITIVE 12/03/17 08:20 Antibody Screen Negative 12/03/17 08:20
[2017-12-06] MEDS: ROBITUSSIN AC PO PRN (18:48)
[2017-12-06] MEDS: TYLENOL PO PRN (18:55)
[2017-12-06] MEDS ORDERED: NACL 0.9% 1000 ML 1,000 ML IV ONE (19:00)
[2017-12-06 20:12] LABS: Bilirubin,Urine NEG (Negative); Blood,Urine MOD (Negative); Color,Urine Amber (Yellow); Urobilinogen,Urine < 2.0 mg/dL (<2.0)
[2017-12-06 20:29] LABS: Creatinine,Urine 137.4 mg/dL (0.1-20.0); Protein/Creatinine Ratio,Urine 1.26
--- NOTE | 2017-12-06 23:23 | XRay Report ---
FINAL REPORT PROCEDURE: XR CHEST 1V AP TECHNIQUE: Chest radiograph anteroposterior view. CPT 31991 HISTORY: cough COMPARISON: 12/03/2017 FINDINGS: Heart: Normal. Mediastinum/Vessels: Normal. Lungs/Pleural space: Ill-defined patchy densities are noted in bilateral upper and right lower lungs which are new since the prior study. Pleural spaces are clear.. Bony thorax: No acute osseous abnormality. Life support devices: None. IMPRESSION: Findings are consistent with pneumonia in bilateral upper lobes and right lower lung..
[2017-12-07] MEDS: FLAGYL 500 MG/100 ML 500 MG/100 ML BAG IV SCH (01:18)
[2017-12-07] MEDS: VANCOMYCIN/NS 1 GM/250 ML 1 GM/250 ML BAG IV SCH (02:32)
[2017-12-07 07:16] LABS: Hematocrit 31.3 % (35.5-45.6); Hemoglobin 10.1 gm/dl (11.8-15.2); Mean Corpuscular HGB Conc 32 % (32-34); Mean Corpuscular Volume 72 fl (84-94); Platelet Count 253 K/mm3 (140-440); Red Blood Count 4.35 M/mm3 (3.65-5.03)
[2017-12-07 07:19] LABS: Mean Corpuscular Hemoglobin 23 pg (28-32)
[2017-12-07] MEDS ORDERED: XYLOCAINE MPF 2% ONE (07:20)
[2017-12-07] MEDS ORDERED: DIPRIVAN 10 MG/ML IV ONE ×3 (07:20)
[2017-12-07 07:27] LABS: BUN/Creatinine Ratio 10; Blood Urea Nitrogen 13 mg/dL (9-20); Calcium 7.7 mg/dL (8.4-10.2); Hemolysis Index 0
[2017-12-07] MEDS ORDERED: NACL 0.9% 1000 ML 1,000 ML ONE (07:40)
--- NOTE | 2017-12-07 07:53 | Ultrasound Report ---
ULTRASOUND RENAL BILATERAL HISTORY: Acute kidney injury. TECHNIQUE: transabdominal ultrasound with color Doppler interrogation. FINDINGS: Both kidneys remain markedly echogenic with poor corticomedullary differentiation. The kidneys are slightly more heterogeneous in echotexture since the ultrasound abdomen performed 12/04/17. The significance of this is unclear. I suppose this could be secondary to an early infectious or ischemic process. No evidence for cystic disease, calculus, mass, hydronephrosis or perinephric fluid. The bladder is unremarkable. IMPRESSION: Markedly echogenic kidneys consistent with acute renal failure or severe medical renal disease. These findings appear slightly more advanced when comparing to the ultrasound abdomen dated 12/04/17. No focal renal lesion or obstructive uropathy is identified.
[2017-12-07] MEDS ORDERED: HURRICAINE ONE 20% TOPICAL SPRAY MM NR (08:00)
[2017-12-07] MEDS ORDERED: NACL 0.9% 1000 ML 1,000 ML IV SCH (09:00)
--- NOTE | 2017-12-07 10:03 | Progress Note ---
Assessment and Plan Assessment: 1) Severe Sepsis with septic shock: better, shock resolved, new fever, still leukocytosis. Etiology GNR bacteremia. -CRP=4.3 -Yirmrh=790 2) GNR bacteremia: source ? IV meth -TTE EF 245-30% and ? intracardiac mass 3) Acute encephalopathy: from meth intoxication/withdrawal +/- neurosyphilis -CSF WBC 16, crypto ag neg 4) MIKE - better 5) HIV non compliant with medications, lost HIV clinic f/u with [facility] 2 years ago and stopped his ART 2 years ago after losing his medical insurance -CD4=71 -RQ=271,000 6) Meth dependence w recent intoxication 7) Multiple sexual partners, he does not use condom consistently. 8) Elevated LFTs - ? sepsis ? hepatitis C. AST 91. ALT 58. Alkaline phosphatase 189 - better 9) Hep C antibody positive 10) Late latent syphilis: per patient it was treated 5 years ago with penicillin shots, new titer 1:32 ? reinfection vs reactivation. Likely neurosyphilis in light of AMS, advanced AIDS and CSF wbc 16 11) GB thickening ? cholecystitis - HIDA neg 12) Acute diarrhea: started after IV meth ? meth withdrawal. C diff negative, resolved Plan: -follow-up CSF cultures -follow-up initial blood cx GNR ID and MICs -follow-up repeat blood cx -follow-up PA -continue cefepime -add penicillin G IV total 14 days for neurosyphilis -stop flagyl and vancomycin -very complex case patient without insurance and homeless Dr Ahuja will be rounding until 12/13 Thank you for your consultation, will follow up with you. Mayra Albarado MD Infectious Diseases Specialist [facility] ([facility] M [phone] O [phone] Subjective Date of service: 12/07/17 Principal diagnosis: septic shock Interval history: Feels better, new temp 101.7 alert, talking. Mom at bedside Microbiology: Blood cultures: 12/03 GNR 1 of 4 bottles 12/04 ngtd Urine cultures: 12/03 neg Stool C diff neg CSF 12/05: ngtd Current Antimicrobials: cefepime 12/03 Flagyl Vanco Previous Antimicrobials: Zosyn Objective - Exam Narrative Exam: General appearance: Alert in NAD, conversant Eyes: anicteric sclerae, moist conjunctivae; no lid-lag; PERRLA HENT: Atraumatic; oropharynx clear Neck: Trachea midline; supple, no thyromegaly or lymphadenopathy Lungs: CTA, with normal respiratory effort and no intercostal retractions CV: tachy Abdomen: Soft, non-tender; no masses or hepatosplenomegaly Extremities: No peripheral edema or extremity lymphadenopathy Skin: Normal temperature, turgor and texture; no rash, ulcers or subcutaneous nodules Psych: Appropriate affect, alert and oriented to person, place and time. Neuro: alert and oriented x 3. Moving all extermities Lines: - Constitutional Vitals: Vital Signs Temp Pulse Resp BP Pulse Ox 97.8 F 90 20 131/79 97 12/07/17 08:05 12/07/17 08:50 12/07/17 08:50 12/07/17 08:50 12/07/17 08:50 Temperature -Last 24 Hours Temperature [Post-Procedure] 97.8 F Temperature 98.4 F Temperature 98.1 F Temperature 98.2 F - Labs CBC & Chem 7: 12/07/17 06:20 12/07/17 06:20 Labs: Abnormal lab results 12/04/17 12/06/17 12/06/17 Range/Units 07:30 19:45 19:45 WBC (4.5-11.0) K/mm3 Hgb (11.8-15.2) gm/dl Hct (35.5-45.6) % MCV (84-94) fl MCH (28-32) pg Potassium (3.6-5.0) mmol/L Chloride (98-107) mmol/L Carbon Dioxide (22-30) mmol/L Calcium (8.4-10.2) mg/dL Urine WBC (Auto) 21.0 H (0.0-6.0) /HPF Urine Creatinine 137.4 H (0.1-20.0) mg/dL Urine Total Protein 173 H (5-11.8) mg/dL Miscellaneous Test Flexitest 1 H 12/07/17 12/07/17 Range/Units 06:20 06:20 WBC 16.0 H (4.5-11.0) K/mm3 Hgb 10.1 L (11.8-15.2) gm/dl Hct 31.3 L (35.5-45.6) % MCV 72 L (84-94) fl MCH 23 L (28-32) pg Potassium 3.3 L (3.6-5.0) mmol/L Chloride 111.9 H (98-107) mmol/L Carbon Dioxide 18 L (22-30) mmol/L Calcium 7.7 L (8.4-10.2) mg/dL Urine WBC (Auto) (0.0-6.0) /HPF Urine Creatinine (0.1-20.0) mg/dL Urine Total Protein (5-11.8) mg/dL Miscellaneous Test
[2017-12-07] MEDS: PFIZERPEN 12 MIL.UNITS in NACL 0.9% 250ML 250 ML IV SCH ×2 (10:51→23:10)
[2017-12-07] MEDS: BACTRIM DS PO SCH (10:52)
[2017-12-07] MEDS: MAXIPIME/NS 2 GM/100 ML 2 GM/100 ML BAG IV SCH ×2 (10:52→23:10)
--- NOTE | 2017-12-07 11:19 | Progress Note ---
Assessment and Plan Assessment: Severe Sepsis with septic shock - improving Acute diarrhea - started after IV meth ? meth withdrawal MIKE - improving HIV Cardiomyopathy Questionable intracardiac mass Elevated LFTs IV methamphetamine use Tobacco use Plan: PA this morning confirmed that the questionable intracardiac mass noted on TTE is a normal variation of cardiac anatomy. EF on PA noted to be 40%. Will initiate lisinopril. Avoid beta blockers in the setting of methamphetamine abuse. Recommend following up in the office with Dr. Merritt in 6-8 weeks. Assessment and plan reviewed with pt and pt's mother at bedside. The patient has been seen in conjunction with Dr. Merritt who agrees with the assessment and plan of care. Subjective Date of service: 12/07/17 Principal diagnosis: septic shock Interval history: The patient is resting in bed. No new complaints. Objective Last Vital Signs Temp 98.6 F 12/07/17 10:21 Pulse 83 12/07/17 10:21 Resp 16 12/07/17 10:21 BP 141/88 12/07/17 10:21 Pulse Ox 99 12/07/17 10:21 - Physical Examination General: No Apparent Distress HEENT: Positive: PERRL, Normocephaly, Mucus Membranes Moist Neck: Positive: neck supple, trachea midline Cardiac: Positive: Reg Rate and Rhythm, S1/S2 Lungs: Positive: clear to auscultation Neuro: Positive: Grossly Intact Abdomen: Negative: Tender Skin: Positive: Clear. Negative: Rash, Wound Musculoskeletal: No Fluid Collection, No Pain, Normal Range of Motion Extremities: Absent: edema - Labs and Meds CBC 12/07/17 Range/Units 06:20 WBC 16.0 H (4.5-11.0) K/mm3 RBC 4.35 (3.65-5.03) M/mm3 Hgb 10.1 L (11.8-15.2) gm/dl Hct 31.3 L (35.5-45.6) % Plt Count 253 (140-440) K/mm3 Comprehensive Metabolic Panel 12/07/17 Range/Units 06:20 Sodium 140 (137-145) mmol/L Potassium 3.3 L (3.6-5.0) mmol/L Chloride 111.9 H (98-107) mmol/L Carbon Dioxide 18 L (22-30) mmol/L BUN 13 (9-20) mg/dL Creatinine 1.3 (0.8-1.5) mg/dL Glucose 85 (75-100) mg/dL Calcium 7.7 L (8.4-10.2) mg/dL - Imaging and Cardiology EKG: report reviewed, image reviewed Echo: report reviewed ( EF 25-30%, LA mild to mod dilated, RV mildly dilated, RA mod dilated, mild to mod MR, mod TR, RVsP 42mmHg, intracardiac mass affiliated with the lateral wall in some views, unclear if this represents a hypertrophied papillary muscle. ) - Telemetry EKG Rhythm: Sinus Rhythm - EKG Sinus rhythms and dysrhythmias: sinus tachycardia - Allied health notes Allied health notes reviewed: nursing
--- NOTE | 2017-12-07 11:27 | Progress Note ---
Assessment and Plan - Patient Problems (1) Acute renal failure Current Visit: Yes Status: Acute Plan to address problem: Agree with current supportive measures. acute renal injury improved with IVF fluids. Renal US noted that is concerning for likely underlying CKD. Repeat UA and UPC indicating persistent microscopic hematuria and proteinuria of >1 g. As he is recovering from a recent MIKE, will hold of on starting an ACEi until he is back to baseline, so as to help with his proteinuria. (2) Septic shock Current Visit: Yes Status: Acute Plan to address problem: On broad spectrum antibiotics with ID on board. C.Diff negative. Cultures pending. Per ID note there was concern for neurosyphillis and patient had an LP. His MIKE likely is pre-renal in origin in the setting of this septic shock/ decreased PO intake. His renal function is improving and his hemodynamics have improved. With his stable hemodynamic parameters would favor to discontinue his IVF, seeing that he is tolerating PO intake well. (3) Lactic acidosis Current Visit: Yes Status: Acute Plan to address problem: Improved since admission with appropriate hydration and maintenance of hemodynamics. (4) HIV disease Current Visit: Yes Status: Acute Plan to address problem: Management per infectious disease team. Concern that based on his repeat UA, UPC and renal US that he likey has CKD at baseline, which may be secondary to his HIV disease. Reiterated to him that HIV not treated can lead to chronic kidney injury and reiterated to him the importance of adhering to his HAART therapy. He needs to follow up with nephrology as an outpatient. Subjective Date of service: 12/07/17 Principal diagnosis: septic shock Interval history: No acute issues overnight. Remains on IVF. Renla funcin stable with serum creatinine at 1.3. Repeated UA and is still shows evidence of microscopic hematuria and proteinuria. His UPC indicated over 1 g protein spillage. His renal US did comment on increased echogenicity of the kidneys. This concerns me that he likely has CKD at baseline. Objective - Vital Signs Vital signs: Vital Signs - 12hr 12/07/17 12/07/17 12/07/17 00:25 03:58 04:00 Temperature 98.1 F 98.4 F Temperature [ Post-Procedure] Pulse Rate 91 H 91 H 81 Pulse Rate [ Post-Procedure] Respiratory 18 18 Rate Respiratory Rate [Post- Procedure] Blood Pressure 125/73 117/76 Blood Pressure [Post-Procedure ] O2 Sat by Pulse 94 96 Oximetry O2 Sat by Pulse Oximetry [Post -Procedure] 12/07/17 12/07/17 12/07/17 08:05 08:20 08:35 Temperature Temperature [ 97.8 F Post-Procedure] Pulse Rate Pulse Rate [ 102 H 103 H 84 Post-Procedure] Respiratory Rate Respiratory 16 20 18 Rate [Post- Procedure] Blood Pressure Blood Pressure 114/55 141/77 141/80 [Post-Procedure ] O2 Sat by Pulse Oximetry O2 Sat by Pulse 94 99 100 Oximetry [Post -Procedure] 12/07/17 12/07/17 08:50 10:21 Temperature 98.6 F Temperature [ Post-Procedure] Pulse Rate 83 Pulse Rate [ 90 Post-Procedure] Respiratory 16 Rate Respiratory 20 Rate [Post- Procedure] Blood Pressure 141/88 Blood Pressure 131/79 [Post-Procedure ] O2 Sat by Pulse 99 Oximetry O2 Sat by Pulse 97 Oximetry [Post -Procedure] - General Appearance General appearance: well-developed, appears stated age EENT: PERRL Neck: no JVD, no thyromegaly Respiratory: Present: Clear to Ascultation, Normal Exam Cardiology: regular, normal heart rate Gastrointestinal: normal, normoactive bowel sounds Integumentary: no rash, warm and dry Neurologic: no focal deficit, no asterixis, alert and oriented x3 Musculoskeletal: deferred Psychiatric: mood/affect appropriate - Lab 12/07/17 06:20 12/07/17 06:20 Most recent lab results Calcium 7.7 mg/dL (8.4-10.2) L 12/07/17 06:20 Urine Creatinine 137.4 mg/dL (0.1-20.0) H 12/06/17 19:45 Urine Total Protein 173 mg/dL (5-11.8) H 12/06/17 19:45 - Allied health notes Allied health notes reviewed: nursing
[2017-12-07] MEDS: ZITHROMAX PO SCH (13:25)
[2017-12-07] MEDS: ROBITUSSIN AC PO PRN ×2 (13:26→22:23)
--- NOTE | 2017-12-07 17:09 | Progress Note ---
Assessment and Plan Assessment and plan: Patient is a 27 year old male with past medical hx of HIV non compliant with medications and also hx of IVDA, last use a day prior to presentation, presents to the ED via EMS with possible drug overdose. The patient's mother allegedly called EMS. When EMS got to him he was diaphoretic, tachycardic and lethargic. He was given Narcan with some response. The patient admitted to EMS, ED doctor and now also to myself that he did crystal meth this evening by ingestion and that he has a history of using meth. Patient presents with a fever, tachycardia and Hypotension. He says he's been dealing with a cough and diarrhea over the past few days. He has a history of HIV but does not take any medications for it and is not followed by any primary care physician or infectious disease, He initial was monitored by patrick. No recent travel or sick contacts at home. In the ED the patient was started on sepsis protocol with 4.5 Liters of fluids given but remained hypotensive with SBP in the 80s requiring Initiation of PRESSORS. SEPTIC SHOCK Neurosyphilis Acute Metabolic Encephalopathy Severe Sepsis Bacteremia with GNR Bilateral lobar Pneumonia Metabolic acidosis Lactic acidosis MIKE secondary to vasomotor nephropathy-Improved AIDS Severe cardiomyopathy/LV mass Hyperbiliribuemia-hida scan pending due to gallbladder thickining Non complaint Hepatits C Uropvcsc-Wjiaxwe-[id number] C.DIFF Anemia of chronic Disease IVDA-CRYSTAL METH LEUKOPENIA Transaminitis cough Plan * Patient started on penicillin due highly suspicious for neurosyphilis. Will need 14 days of abx. CSF cultures pending' * PICC line Once cultures negative. 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 reinfection vs reactivation. likely neurosyphilis in light of AMS and advanced AIDS * cardiology consult- No thrombosis on PA * C-Diff negative * NEPHROLOGY CONSULT-noted * Continue pressors and wean as tolerated * stool negative for C-DIFF * Valve Mechanic and ID consult-input noted * Lymphocytes subset labs * Counselling provided about IVDA,HIV, Hep c and medication Compliance * If no renal improvement will obtain Export Sales Manager consult * change out femoral line as soon as possible if pressor to continue * Replace electrolytes as needed * DVT/GI prophy * Plan of care discussed with patient, mother With patients consent and specialist. History Interval history: Patient seen and examined this am, Improving mental status. Reports cough, non productive Hospitalist Physical - Physical exam Narrative exam: VITAL SIGNS: Reviewed. GENERAL: The patient appeared well nourished and normally developed. Vital signs as documented. HEAD: No signs of head trauma. EYES: Pupils are equal. Extraocular motions intact. EARS: Hearing grossly intact. MOUTH: Oropharynx is normal. NECK: No adenopathy, no JVD. CHEST: Chest with clear breath sounds bilaterally. No wheezes, rales, or rhonchi. CARDIAC: Regular rate and rhythm. S1 and S2, without murmurs, gallops, or rubs. VASCULAR: No Edema. Peripheral pulses normal and equal in all extremities. ABDOMEN: Soft, without detectable tenderness. No sign of distention. No rebound or guarding, and no masses palpated. Bowel Sounds normal. MUSCULOSKELETAL: Good range of motion of all major joints. Extremities without clubbing, cyanosis or edema. NEUROLOGIC EXAM: Lethargic but awake and oriented x 3. No focal sensory or strength deficits. Speech normal. Follows commands. PSYCHIATRIC: Mood normal. SKIN: No rash or lesions. - Constitutional Vitals: Temp Pulse Resp BP Pulse Ox 98.6 F 83 16 141/88 99 12/07/17 10:21 12/07/17 10:21 12/07/17 10:21 12/07/17 10:21 12/07/17 10:21 General appearance: Present: no acute distress Results - Labs CBC & Chem 7: 12/07/17 06:20 12/07/17 06:20 Labs: Laboratory Last Values WBC 16.0 K/mm3 (4.5-11.0) H 12/07/17 06:20 RBC 4.35 M/mm3 (3.65-5.03) 12/07/17 06:20 Hgb 10.1 gm/dl (11.8-15.2) L 12/07/17 06:20 Hct 31.3 % (35.5-45.6) L 12/07/17 06:20 MCV 72 fl (84-94) L 12/07/17 06:20 MCH 23 pg (28-32) L 12/07/17 06:20 MCHC 32 % (32-34) 12/07/17 06:20 RDW 14.0 % (13.2-15.2) 12/07/17 06:20 Plt Count 253 K/mm3 (140-440) 12/07/17 06:20 Lymph % (Auto) 10.7 % (13.4-35.0) L 12/03/17 00:52 [place] % (Auto) 1.0 % (0.0-7.3) 12/03/17 00:52 Eos % (Auto) 0.5 % (0.0-4.3) 12/03/17 00:52 Baso % (Auto) 0.2 % (0.0-1.8) 12/03/17 00:52 Lymph # 0.4 K/mm3 (1.2-5.4) L 12/03/17 00:52 [place] # 0.0 K/mm3 (0.0-0.8) 12/03/17 00:52 Eos # 0.0 K/mm3 (0.0-0.4) 12/03/17 00:52 Baso # 0.0 K/mm3 (0.0-0.1) 12/03/17 00:52 Seg Neutrophils % 87.6 % (40.0-70.0) H 12/03/17 00:52 Seg Neutrophils # 3.1 K/mm3 (1.8-7.7) 12/03/17 00:52 Abs Lymphs (Manual) 567 cells/uL (850-3900) L 12/03/17 08:20 PT 13.9 Sec. (12.2-14.9) 12/05/17 10:41 INR 1.02 (0.87-1.13) 12/05/17 10:41 APTT 39.3 Sec. (24.2-36.6) H 12/03/17 00:52 Sodium 140 mmol/L (137-145) 12/07/17 06:20 Potassium 3.3 mmol/L (3.6-5.0) L 12/07/17 06:20 Chloride 111.9 mmol/L (98-107) H 12/07/17 06:20 Carbon Dioxide 18 mmol/L (22-30) L 12/07/17 06:20 Anion Gap 13 mmol/L 12/07/17 06:20 BUN 13 mg/dL (9-20) 12/07/17 06:20 Creatinine 1.3 mg/dL (0.8-1.5) 12/07/17 06:20 Estimated GFR > 60 ml/min 12/07/17 06:20 BUN/Creatinine Ratio 10 % 12/07/17 06:20 Glucose 85 mg/dL (75-100) 12/07/17 06:20 Lactic Acid 2.70 mmol/L (0.7-2.0) H* 12/04/17 07:30 Calcium 7.7 mg/dL (8.4-10.2) L 12/07/17 06:20 Total Bilirubin 1.40 mg/dL (0.1-1.2) H 12/06/17 06:07 AST 37 units/L (5-40) 12/06/17 06:07 ALT 27 units/L (7-56) 12/06/17 06:07 Alkaline Phosphatase 387 units/L (35-129) H 12/06/17 06:07 Total Creatine Kinase 112 units/L (55-170) 12/03/17 00:52 Troponin T < 0.010 ng/mL (0.00-0.029) 12/03/17 00:52 C-Reactive Protein 4.30 mg/dL (0.00-1.30) H 12/03/17 12:30 Total Protein 6.4 g/dL (6.3-8.2) 12/06/17 06:07 Albumin 1.8 g/dL (3.9-5) L 12/06/17 06:07 Albumin/Globulin Ratio 0.4 % 12/06/17 06:07 Urine Color Janeth (Yellow) 12/06/17 19:45 Urine Turbidity Clear (Clear) 12/06/17 19:45 Urine pH 6.0 (5.0-7.0) 12/06/17 19:45 Ur Specific [place] 1.017 (1.003-1.030) 12/06/17 19:45 Urine Protein 100 mg/dl mg/dL (Negative) 12/06/17 19:45 Urine Glucose (UA) Neg mg/dL (Negative) 12/06/17 19:45 Urine Ketones Neg mg/dL (Negative) 12/06/17 19:45 Urine Blood Mod (Negative) 12/06/17 19:45 Urine Nitrite Neg (Negative) 12/06/17 19:45 Urine Bilirubin Neg (Negative) 12/06/17 19:45 Urine Urobilinogen < 2.0 mg/dL (<2.0) 12/06/17 19:45 Ur Leukocyte Esterase Tr (Negative) 12/06/17 19:45 Urine WBC (Auto) 21.0 /HPF (0.0-6.0) H 12/06/17 19:45 Urine RBC (Auto) 125.0 /HPF (0.0-6.0) 12/06/17 19:45 U Epithel Cells (Auto) < 1.0 /HPF (0-13.0) 12/06/17 19:45 Urine Bacteria (Auto) 1+ /HPF (Negative) 12/03/17 12:03 Urine Mucus Few /HPF 12/03/17 12:03 Urine Yeast (Budding) 2+ /HPF 12/06/17 19:45 Urine Creatinine 137.4 mg/dL (0.1-20.0) H 12/06/17 19:45 Protein/Creatinin Ratio 1.26 12/06/17 19:45 Urine Total Protein 173 mg/dL (5-11.8) H 12/06/17 19:45 CSF Appearance Clear 12/05/17 12:30 CSF Color Colorless 12/05/17 12:30 CSF WBC 16 /mm3 (1-10) 12/05/17 12:30 CSF RBC 3 /mm3 (0-0) 12/05/17 12:30 CSF Seg Neutrophils Not Reportable 12/05/17 12:30 CSF Lymphocytes % 95.0 % (40-80) 12/05/17 12:30 CSF Reactive Lymphs 4.0 % 12/05/17 12:30 CSF Monocytes % 1.0 % (15-45) 12/05/17 12:30 CSF Eosinophils % Not Reportable 12/05/17 12:30 CSF Basophils Not Reportable 12/05/17 12:30 CSF Pathologist Review C 12/05/17 12:30 CSF Glucose 62 mg/dL 12/05/17 12:30 CSF Total Protein 34 mg/dL 12/05/17 12:30 Salicylates < 0.3 mg/dL (2.8-20.0) L 12/03/17 00:52 Urine Opiates Screen Presumptive negative 12/03/17 12:03 Urine Methadone Screen Presumptive negative 12/03/17 12:03 Acetaminophen < 5.0 ug/mL (10.0-30.0) L 12/03/17 00:52 Ur Barbiturates Screen Presumptive negative 12/03/17 12:03 Ur Phencyclidine Scrn Presumptive negative 12/03/17 12:03 Ur Amphetamines Screen Presumptive positive 12/03/17 12:03 U Benzodiazepines Scrn Presumptive negative 12/03/17 12:03 Urine Cocaine Screen Presumptive negative 12/03/17 12:03 U Marijuana (THC) Screen Presumptive negative 12/03/17 12:03 Drugs of Abuse Note Disclamer 12/03/17 12:03 Plasma/Serum Alcohol < 0.01 % (0-0.07) 12/03/17 00:52 Lymph Enumerat CD4/CD8 0.24 (0.86-5.00) L 12/03/17 08:20 % CD3 Cells 72 % (57-85) 12/03/17 08:20 Absolute CD3 Count 409 cells/uL (840-3060) L 12/03/17 08:20 % CD4 Cells 13 % (30-61) L 12/03/17 08:20 Absolute CD4 Count 71 cells/uL (490-1740) L 12/03/17 08:20 % CD8 Cells 54 % (12-42) H 12/03/17 08:20 Absolute CD8 Count 294 cells/uL (180-1170) 12/03/17 08:20 % CD19 Cells 7 % (6-29) 12/03/17 08:20 Absolute CD19 Count 41 cells/uL (110-660) L 12/03/17 08:20 RPR Titer 1:32 12/03/17 12:30 RPR Reactive (Nonreactive) 12/03/17 12:30 T.pallidum Ab (FTA-ABS) Reactive (Nonreactive) H 12/03/17 12:30 C. difficile Toxin A&B Negative (Negative) 12/03/17 04:40 Hepatitis A IgM Ab Non-reactive (NonReactive) 12/03/17 12:30 Hep Bs Antigen Non-reactive (Negative) 12/03/17 12:30 Hep B Core IgM Ab Non-reactive (NonReactive) 12/03/17 12:30 Hepatitis C Antibody Reactive (NonReactive) A 12/03/17 12:30 HIV-1 RNA PCR copies/ml [id number] Copies/mL H 12/03/17 12:30 HIV-1 RNA (PCR) log 5.77 Log cps/mL H 12/03/17 12:30 Miscellaneous Test Flexitest 1 H 12/04/17 07:30 Blood Type O POSITIVE 12/03/17 08:20 Antibody Screen Negative 12/03/17 08:20
[2017-12-07] MEDS: ZESTRIL PO SCH (18:34)
[2017-12-08 05:33] LABS: Mean Corpuscular HGB Conc 31 % (32-34); Mean Corpuscular Volume 72 fl (84-94); Red Blood Count 4.43 M/mm3 (3.65-5.03)
[2017-12-08 05:35] LABS: Mean Corpuscular Hemoglobin 23 pg (28-32); Platelet Count 267 K/mm3 (140-440)
[2017-12-08 05:51] LABS: BUN/Creatinine Ratio 8; Blood Urea Nitrogen 11 mg/dL (9-20); Calcium 7.7 mg/dL (8.4-10.2); Hemolysis Index 0
[2017-12-08] MEDS: PFIZERPEN 12 MIL.UNITS in NACL 0.9% 250ML 250 ML IV SCH ×2 (11:00→21:37)
[2017-12-08] MEDS: BACTRIM DS PO SCH (11:34)
[2017-12-08] MEDS: MAXIPIME/NS 2 GM/100 ML 2 GM/100 ML BAG IV SCH ×2 (11:39→21:35)
[2017-12-08] MEDS: ZESTRIL PO SCH (11:42)
--- NOTE | 2017-12-08 12:28 | Progress Note ---
Assessment and Plan Severe Sepsis with septic shock - improving Acute diarrhea - started after IV meth ? meth withdrawal MIKE - improving HIV Cardiomyopathy Questionable intracardiac mass Elevated LFTs IV methamphetamine use Tobacco use Subjective Date of service: 12/08/17 Principal diagnosis: septic shock Interval history: No chest pain or short of breath. Objective Vital Signs Temp Pulse Resp BP Pulse Ox 12/08/17 11:42 76 135/86 12/08/17 07:01 99 12/08/17 04:59 97.8 F 78 18 129/82 99 12/08/17 01:06 99.3 F 79 18 127/75 99 12/07/17 22:38 97 12/07/17 22:00 98 12/07/17 18:34 128/70 12/07/17 17:37 99.7 F H 19 128/70 - Physical Examination General: No Apparent Distress HEENT: Positive: PERRL, Normocephaly, Mucus Membranes Moist Neck: Positive: neck supple. Negative: JVD/HJR Cardiac: Positive: Reg Rate and Rhythm, S1/S2 Lungs: Positive: clear to auscultation Neuro: Positive: Grossly Intact Abdomen: Positive: Unremarkable. Negative: Tender Skin: Positive: Clear. Negative: Rash, Wound Musculoskeletal: No Fluid Collection, No Pain, Normal Range of Motion Extremities: Present: normal. Absent: edema - Labs and Meds CBC 12/08/17 Range/Units 04:49 WBC 13.5 H (4.5-11.0) K/mm3 RBC 4.43 (3.65-5.03) M/mm3 Hgb 10.0 L (11.8-15.2) gm/dl Hct 32.0 L (35.5-45.6) % Plt Count 267 (140-440) K/mm3 Comprehensive Metabolic Panel 12/08/17 Range/Units 04:49 Sodium 140 (137-145) mmol/L Potassium 3.5 L (3.6-5.0) mmol/L Chloride 109.8 H (98-107) mmol/L Carbon Dioxide 22 (22-30) mmol/L BUN 11 (9-20) mg/dL Creatinine 1.3 (0.8-1.5) mg/dL Glucose 87 (75-100) mg/dL Calcium 7.7 L (8.4-10.2) mg/dL - Imaging and Cardiology EKG: report reviewed, image reviewed Echo: report reviewed ( EF 25-30%, LA mild to mod dilated, RV mildly dilated, RA mod dilated, mild to mod MR, mod TR, RVsP 42mmHg, intracardiac mass affiliated with the lateral wall in some views, unclear if this represents a hypertrophied papillary muscle. ) - EKG Sinus rhythms and dysrhythmias: sinus tachycardia - Allied health notes Allied health notes reviewed: nursing
--- NOTE | 2017-12-08 14:21 | Progress Note ---
Assessment and Plan - Patient Problems (1) Acute renal failure Current Visit: Yes Status: Acute Plan to address problem: Improved, Cr stable around 1.3mg/dl. Lisinopril restarted. Renal US noted, concerning for likely underlying CKD. Repeat UA and UPC indicating persistent microscopic hematuria and proteinuria of >1 g. (2) Septic shock Current Visit: Yes Status: Acute Plan to address problem: On broad spectrum antibiotics with ID on board. C.Diff negative. Cultures pending. Per ID note there was concern for neurosyphillis and patient had an LP. (3) HIV disease Current Visit: Yes Status: Acute Plan to address problem: Management per infectious disease team. Concern that based on his repeat UA, UPC and renal US that he likey has CKD at baseline, which may be secondary to his HIV disease. reiterated to him the importance of adhering to his HAART therapy to avoid further decline of renal function due to HIVAN. He needs to follow up closely with ID/nephrology as an outpatient. (4) Lactic acidosis Current Visit: Yes Status: Acute Plan to address problem: resovled with appropriate hydration and maintenance of hemodynamics. Subjective Date of service: 12/08/17 Principal diagnosis: septic shock Interval history: Pt awake, alert, in NAD Objective - Vital Signs Vital signs: Vital Signs - 12hr 12/08/17 12/08/17 12/08/17 04:59 07:01 11:42 Temperature 97.8 F Pulse Rate 78 76 Respiratory 18 Rate Blood Pressure 129/82 135/86 O2 Sat by Pulse 99 99 Oximetry 12/08/17 13:36 Temperature 98.6 F Pulse Rate 68 Respiratory 19 Rate Blood Pressure 155/82 O2 Sat by Pulse 94 Oximetry - General Appearance General appearance: well-developed, well-nourished, appears stated age EENT: ATNC, PERRL, mucous membranes moist Neck: no JVD Respiratory: Present: Clear to Ascultation Cardiology: regular, S1S2 Gastrointestinal: normoactive bowel sounds Integumentary: no rash, other (no edema ) Neurologic: no focal deficit, alert and oriented x3, strength 5/5, CN 3-12 intact Psychiatric: mood/affect appropriate, cooperative - Lab 12/08/17 04:49 12/08/17 04:49 Most recent lab results Calcium 7.7 mg/dL (8.4-10.2) L 12/08/17 04:49 Urine Creatinine 137.4 mg/dL (0.1-20.0) H 12/06/17 19:45 Urine Total Protein 173 mg/dL (5-11.8) H 12/06/17 19:45
[2017-12-08] MEDS: ROBITUSSIN AC PO PRN (14:44)
--- NOTE | 2017-12-08 15:30 | Progress Note ---
Assessment and Plan SEPTIC SHOCK Neurosyphilis Acute Metabolic Encephalopathy - resolved Severe Sepsis Bacteremia with GNR Bilateral lobar Pneumonia Metabolic acidosis - resolved Lactic acidosis - resolved MIKE secondary to vasomotor nephropathy-Improved AIDS Severe cardiomyopathy/LV mass Hyperbiliribuemia-hida scan no evidence of cholecystitis Non complaint Hepatits C [id number] C.DIFF Anemia of chronic Disease IVDA-CRYSTAL METH LEUKOPENIA Plan * Patient started on penicillin due highly suspicious for neurosyphilis. Will need 14 days of abx. CSF cultures pending' * PICC line Once cultures negative. 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 reinfection vs reactivation. likely neurosyphilis in light of AMS and advanced AIDS * cardiology consult- No thrombosis on PA * supplement KL * C-Diff negative * NEPHROLOGY CONSULT-noted * stool negative for C-DIFF * Broadcast Producer and ID consult-input noted * Lymphocytes subset labs * Counselling provided about IVDA,HIV, Hep c and medication Compliance * Replace electrolytes as needed * DVT/GI prophy * Plan of care discussed with patient, mother With patients consent and specialist. Subjective Date of service: 12/08/17 Principal diagnosis: septic shock Objective - Constitutional Vitals: Vital Signs - 12hr 12/08/17 12/08/17 12/08/17 04:59 07:01 11:42 Temperature 97.8 F Pulse Rate 78 76 Respiratory 18 Rate Blood Pressure 129/82 135/86 O2 Sat by Pulse 99 99 Oximetry 12/08/17 13:36 Temperature 98.6 F Pulse Rate 68 Respiratory 19 Rate Blood Pressure 155/82 O2 Sat by Pulse 94 Oximetry - Labs CBC & Chem 7: 12/08/17 04:49 12/08/17 04:49 Labs: Abnormal lab results 12/08/17 12/08/17 Range/Units 04:49 04:49 WBC 13.5 H (4.5-11.0) K/mm3 Hgb 10.0 L (11.8-15.2) gm/dl Hct 32.0 L (35.5-45.6) % MCV 72 L (84-94) fl MCH 23 L (28-32) pg MCHC 31 L (32-34) % Potassium 3.5 L (3.6-5.0) mmol/L Chloride 109.8 H (98-107) mmol/L Calcium 7.7 L (8.4-10.2) mg/dL
--- NOTE | 2017-12-08 15:44 | Progress Note ---
Assessment and Plan SEPTIC SHOCK Neurosyphilis Acute Metabolic Encephalopathy Severe Sepsis Bacteremia with GNR Bilateral lobar Pneumonia Metabolic acidosis Lactic acidosis MIKE secondary to vasomotor nephropathy-Improved AIDS Severe cardiomyopathy/LV mass Hyperbiliribuemia-hida scan pending due to gallbladder thickining Non complaint Hepatits C Sgvmdfiz-Ujemovz-[id number] C.DIFF Anemia of chronic Disease IVDA-CRYSTAL METH LEUKOPENIA Transaminitis cough Plan * Patient started on penicillin due highly suspicious for neurosyphilis. Will need 14 days of abx. CSF cultures pending' * PICC line Once cultures negative. 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 reinfection vs reactivation. likely neurosyphilis in light of AMS and advanced AIDS * cardiology consult- No thrombosis on PA * C-Diff negative * NEPHROLOGY CONSULT-noted * Continue pressors and wean as tolerated * stool negative for C-DIFF * Sales Advisor and ID consult-input noted * Lymphocytes subset labs * Counselling provided about IVDA,HIV, Hep c and medication Compliance * If no renal improvement will obtain Cotton Puller consult * change out femoral line as soon as possible if pressor to continue * Replace electrolytes as needed * DVT/GI prophy * Plan of care discussed with patient, mother With patients consent and specialist. Subjective Date of service: 12/08/17 Principal diagnosis: septic shock Objective - Constitutional Vitals: Vital Signs - 12hr 12/08/17 12/08/17 12/08/17 04:59 07:01 11:42 Temperature 97.8 F Pulse Rate 78 76 Respiratory 18 Rate Blood Pressure 129/82 135/86 O2 Sat by Pulse 99 99 Oximetry 12/08/17 13:36 Temperature 98.6 F Pulse Rate 68 Respiratory 19 Rate Blood Pressure 155/82 O2 Sat by Pulse 94 Oximetry - Labs CBC & Chem 7: 12/08/17 04:49 12/08/17 04:49 Labs: Abnormal lab results 12/08/17 12/08/17 Range/Units 04:49 04:49 WBC 13.5 H (4.5-11.0) K/mm3 Hgb 10.0 L (11.8-15.2) gm/dl Hct 32.0 L (35.5-45.6) % MCV 72 L (84-94) fl MCH 23 L (28-32) pg MCHC 31 L (32-34) % Potassium 3.5 L (3.6-5.0) mmol/L Chloride 109.8 H (98-107) mmol/L Calcium 7.7 L (8.4-10.2) mg/dL
[2017-12-08] MEDS: KCL 10MEQ/100ML 10 MEQ/100 ML BAG IV SCH (23:53)
[2017-12-09] MEDS: KCL 10MEQ/100ML 10 MEQ/100 ML BAG IV SCH (01:18)
[2017-12-09] MEDS: ZESTRIL PO SCH (09:28)
[2017-12-09] MEDS: BACTRIM DS PO SCH (09:30)
[2017-12-09] MEDS: PFIZERPEN 12 MIL.UNITS in NACL 0.9% 250ML 250 ML IV SCH (09:30)
[2017-12-09 10:00] LABS: Hematocrit 31.1 % (35.5-45.6); Mean Corpuscular HGB Conc 32 % (32-34); Mean Corpuscular Volume 72 fl (84-94); Platelet Count 278 K/mm3 (140-440); Red Blood Count 4.31 M/mm3 (3.65-5.03); Red Cell Distribution Width 14.3 % (13.2-15.2)
[2017-12-09 10:03] LABS: Alanine Aminotransferase 19 units/L (7-56); Albumin 1.9 g/dL (3.9-5); BUN/Creatinine Ratio 9; Blood Urea Nitrogen 9 mg/dL (9-20); Calcium 7.7 mg/dL (8.4-10.2); Hemolysis Index 36
--- NOTE | 2017-12-09 10:04 | Progress Note ---
Assessment and Plan Assessment: 1) Severe Sepsis with septic shock: shock resolved. New fever and leukocytosis, better. Etiology GNR bacteremia. -CRP=4.3 -Bvrrcd=337 2) GNR bacteremia: source ? IV meth -TTE EF 245-30%. -PA no intracardiac mass. Normal variation of cardiac anatomy. - Microbiology lab unable to ID GNR. Isolated was sent to [facility]. 3) Acute encephalopathy: from meth intoxication/withdrawal +/- neurosyphilis -CSF WBC 16, crypto ag neg. CSF VDRL negative. 4) MIKE - resolved. 5) HIV non compliant with medications, lost HIV clinic f/u with [place] 2 years ago and stopped his ART 2 years ago after losing his medical insurance -CD4=71/13% -HA=196,000 6) Meth dependence w recent intoxication 7) Multiple sexual partners, he does not use condom consistently. 8) Elevated LFTs - ? sepsis ? hepatitis C. 9) Hep C antobodies positive. 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 reinfection vs reactivation. Likely neurosyphilis in light of AMS, advanced AIDS and CSF wbc 16 11) GB thickening ? cholecystitis - HIDA neg 12) Acute diarrhea: started after IV meth ? meth withdrawal. C diff negative, resolved Plan: -Will f/u ID of GNR in blood cx, which had to be sent to [facility]. -follow-up repeat blood cx. -continue cefepime for GNR bacteremia. -continue penicillin G IV total 14 days for neurosyphilis (D6/14). Change dose to 4 million units q4h. -Will check HIV genotype. -Very complex case patient without insurance and homeless. Annamarie Ahuja MD ID attending [phone]. Subjective Date of service: 12/09/17 Principal diagnosis: septic shock Interval history: Low grade fever yesterday. Feels better. Has mild FAIR. Denies N/V/D, cough, SOB, CP, palpitations, abdominal pain. Microbiology: Blood cultures: 12/03 GNR 1 of 4 bottles 12/04 NGTD Urine cultures: 12/03 neg Stool C diff neg Stool Cx 12/03 negative CSF 12/05: Neg CSF crypto ag Neg Current Antimicrobials: Cefepime 12/03- PCN G 12/07- Azithromycin weekly 12/07- Bactrim 12/07- Previous Antimicrobials: Zosyn Flagyl Vanco Objective - Exam Narrative Exam: General appearance: AA male, in NAD. A&Ox3. Eyes: anicteric sclerae, moist conjunctivae; PERRLA HENT: Atraumatic; oropharynx clear Neck: Trachea midline; supple, no thyromegaly or lymphadenopathy Lungs: CTA, with normal respiratory effort and no intercostal retractions CV: S1,S2. Abdomen: Soft, non-tender; no masses or hepatosplenomegaly Extremities: No peripheral edema or extremity lymphadenopathy Skin: Normal temperature, turgor and texture; no rash, ulcers or subcutaneous nodules Psych: Appropriate affect, alert and oriented to person, place and time. Neuro: alert and oriented x 3. - Constitutional Vitals: Vital Signs Temp Pulse Resp BP Pulse Ox 98.6 F 61 16 106/73 99 12/09/17 06:16 12/09/17 06:16 12/09/17 06:16 12/09/17 09:28 12/09/17 07:46 Temperature -Last 24 Hours Temperature 98.6 F Temperature 98.5 F Temperature 100.3 F Temperature 98.6 F - Labs CBC & Chem 7: 12/09/17 08:49 12/09/17 08:49 Labs: Abnormal lab results 12/09/17 Range/Units 08:49 Chloride 107.7 H (98-107) mmol/L Carbon Dioxide 21 L (22-30) mmol/L Glucose 108 H (75-100) mg/dL Calcium 7.7 L (8.4-10.2) mg/dL AST 53 H (5-40) units/L Alkaline Phosphatase 262 H (35-129) units/L Albumin 1.9 L (3.9-5) g/dL
[2017-12-09 10:16] LABS: Mean Corpuscular Hemoglobin 23 pg (28-32)
[2017-12-09 11:06] LABS: Band Neutrophils # (Manual) 0.2 K/mm3; Basophils % (Manual) 0 % (0.0-1.8); Total Cells Counted 100
[2017-12-09 11:08] LABS: Platelet Estimate Consistent w Auto; Target Cells Few
[2017-12-09] MEDS: MAXIPIME/NS 2 GM/100 ML 2 GM/100 ML BAG IV SCH ×2 (11:26→21:43)
[2017-12-09] MEDS ORDERED: PFIZERPEN IV SCH (14:00)
--- NOTE | 2017-12-09 14:05 | Progress Note ---
Assessment and Plan Patient is a 27 year old male with past medical hx of HIV non compliant with medications and also hx of IVDA, last use a day prior to presentation, presents to the ED via EMS with possible drug overdose. The patient's mother allegedly called EMS. When EMS got to him he was diaphoretic, tachycardic and lethargic. He was given Narcan with some response. The patient admitted to EMS, ED doctor and now also to myself that he did crystal meth this evening by ingestion and that he has a history of using meth. Patient presents with a fever, tachycardia and Hypotension. He says he's been dealing with a cough and diarrhea over the past few days. He has a history of HIV but does not take any medications for it and is not followed by any primary care physician or infectious disease, He initial was monitored by nguyen. No recent travel or sick contacts at home. In the ED the patient was started on sepsis protocol with 4.5 Liters of fluids given but remained hypotensive with SBP in the 80s requiring Initiation of PRESSORS. Now off pressors. Transfered to floor. SEPTIC SHOCK Neurosyphilis Acute Metabolic Encephalopathy - resolved Severe Sepsis Bacteremia with GNR Bilateral lobar Pneumonia Metabolic acidosis - resolved Lactic acidosis - resolved MIKE secondary to vasomotor nephropathy-Improved AIDS Severe cardiomyopathy/LV mass Hyperbiliribuemia-hida scan no evidence of cholecystitis Non complaint Hepatits C Aglnhysj-Bqsndva-LHGOWLPC C.DIFF Anemia of chronic Disease IVDA-CRYSTAL METH LEUKOPENIA Plan * Patient started on penicillin due highly suspicious for neurosyphilis. Will need 14 days of abx. CSF cultures pending' * PICC line Once cultures negative. 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 reinfection vs reactivation. likely neurosyphilis in light of AMS and advanced AIDS * cardiology consult- No thrombosis on PA * supplement KL * C-Diff negative * NEPHROLOGY CONSULT-noted * stool negative for C-DIFF * Medical Administrative Specialist and ID consult-input noted * Lymphocytes subset labs * Counselling provided about IVDA,HIV, Hep c and medication Compliance * Replace electrolytes as needed * DVT/GI prophy * Plan of care discussed with patient, Subjective Date of service: 12/09/17 Principal diagnosis: septic shock Interval history: Seen on examined. Denies any fever. No chest pain or shortness of breath. No need Objective - Exam Narrative Exam: Constitutional: Well-nourished well-developed. In no distress Head: Normocephalic atraumatic Eyes: Pupils are equal round and reactive to light Nose: No enlarged turbinates, no septal deviation. Mouth: Moist mucous membranes. Neck: Supple no thyromegaly. No bruit. No JVD Heart: Regular rate and rhythm, S1-S2 abnormal. No rubs murmurs or gallop Lungs: Clear to auscultation bilaterally no rales or rhonchi Abdomen: Soft, nontender. Bowel sound are present. Extremities: No edema no cyanosis and no clubbing. Neuro: Alert oriented Oriented x3. No focal sensory or motor deficit. Skin: No rashes no hyperemic spots Psychiatry: Euthymic. Calm. - Constitutional Vitals: Vital Signs - 12hr 12/09/17 12/09/17 12/09/17 06:16 07:46 09:08 Temperature 98.6 F Pulse Rate 61 Respiratory 16 Rate Blood Pressure 139/87 106/73 O2 Sat by Pulse 99 99 Oximetry 12/09/17 12/09/17 09:28 12:27 Temperature 98.8 F Pulse Rate 59 L Respiratory 20 Rate Blood Pressure 106/73 120/77 O2 Sat by Pulse 99 Oximetry - Labs CBC & Chem 7: 12/09/17 08:49 12/09/17 08:49 Labs: Abnormal lab results 12/09/17 12/09/17 Range/Units 08:49 08:49 Hgb 10.0 L (11.8-15.2) gm/dl Hct 31.1 L (35.5-45.6) % MCV 72 L (84-94) fl MCH 23 L (28-32) pg Seg Neuts % (Manual) 75.0 H (40.0-70.0) % Lymphocytes % (Manual) 13.0 L (13.4-35.0) % Chloride 107.7 H (98-107) mmol/L Carbon Dioxide 21 L (22-30) mmol/L Glucose 108 H (75-100) mg/dL Calcium 7.7 L (8.4-10.2) mg/dL AST 53 H (5-40) units/L Alkaline Phosphatase 262 H (35-129) units/L Albumin 1.9 L (3.9-5) g/dL
[2017-12-09] MEDS: PFIZERPEN 4 MIL.UNITS in NACL 0.9% 50 ML IV SCH ×3 (15:23→21:42)
--- NOTE | 2017-12-09 16:00 | Progress Note ---
Assessment and Plan - Patient Problems (1) Acute renal failure Current Visit: Yes Status: Acute Plan to address problem: Renal function improved with Cr down to 1.0mg/dl. Renal US noted, concerning for likely underlying CKD. Repeat UA and UPC indicating persistent microscopic hematuria and proteinuria of >1 g. (2) Septic shock Current Visit: Yes Status: Acute Plan to address problem: On broad spectrum antibiotics with ID on board. C.Diff negative. Cultures pending. Per ID, there is concern for neurosyphillis, now status post LP. (3) HIV disease Current Visit: Yes Status: Acute Plan to address problem: Management per infectious disease team. Concern that based on his repeat UA, UPC and renal US that he likey has CKD at baseline, which may be secondary to his HIV disease. reiterated to him the importance of adhering to his HAART therapy to avoid further decline of renal function due to HIVAN. He needs to follow up closely with ID/nephrology as an outpatient. (4) Lactic acidosis Current Visit: Yes Status: Acute Plan to address problem: resolved with appropriate hydration and maintenance of hemodynamics. Subjective Date of service: 12/09/17 Principal diagnosis: septic shock Interval history: Pt awake, alert, in NAD Objective - Vital Signs Vital signs: Vital Signs - 12hr 12/09/17 12/09/17 12/09/17 06:16 07:46 09:08 Temperature 98.6 F Pulse Rate 61 Respiratory 16 Rate Blood Pressure 139/87 106/73 O2 Sat by Pulse 99 99 Oximetry 12/09/17 12/09/17 09:28 12:27 Temperature 98.8 F Pulse Rate 59 L Respiratory 20 Rate Blood Pressure 106/73 120/77 O2 Sat by Pulse 99 Oximetry - General Appearance General appearance: well-developed, well-nourished, appears stated age EENT: ATNC, PERRL, mucous membranes moist Neck: no JVD Respiratory: Present: Clear to Ascultation Cardiology: regular, S1S2 Gastrointestinal: normoactive bowel sounds Integumentary: no rash, other (no edema ) Neurologic: no focal deficit, alert and oriented x3, strength 5/5, CN 3-12 intact Psychiatric: mood/affect appropriate, cooperative - Lab 12/09/17 08:49 12/09/17 08:49 Most recent lab results Calcium 7.7 mg/dL (8.4-10.2) L 08/05/18 08:49 Phosphorus 3.20 mg/dL (2.5-4.5) 12/09/17 08:49 Magnesium 1.80 mg/dL (1.7-2.3) 12/09/17 08:49 Urine Creatinine 137.4 mg/dL (0.1-20.0) H 12/06/17 19:45 Urine Total Protein 173 mg/dL (5-11.8) H 12/06/17 19:45
[2017-12-10] MEDS: PFIZERPEN 4 MIL.UNITS in NACL 0.9% 50 ML IV SCH ×5 (01:13→17:46)
--- NOTE | 2017-12-10 08:59 | Progress Note ---
Assessment and Plan Assessment: 1) Severe Sepsis with septic shock: shock resolved. New fever and leukocytosis, better. Etiology GNR bacteremia. -CRP=4.3 -Zxfyiw=887 2) GNR bacteremia: source ? IV meth -TTE EF 245-30%. -PA no intracardiac mass. Normal variation of cardiac anatomy. - Microbiology lab unable to ID GNR. Isolated was sent to [facility]. 3) Acute encephalopathy: from meth intoxication/withdrawal +/- neurosyphilis -CSF WBC 16, crypto ag neg. CSF VDRL negative. 4) MIKE - resolved. 5) HIV non compliant with medications, lost HIV clinic f/u with [place] 2 years ago and stopped his ART 2 years ago after losing his medical insurance -CD4=71/13% -QK=414,000 6) Meth dependence w recent intoxication 7) Multiple sexual partners, he does not use condom consistently. 8) Elevated LFTs - ? sepsis ? hepatitis C. 9) Hep C antobodies positive. 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 reinfection vs reactivation. Likely neurosyphilis in light of AMS, advanced AIDS and CSF wbc 16 11) GB thickening ? cholecystitis - HIDA neg 12) Acute diarrhea: started after IV meth ? meth withdrawal. C diff negative, resolved Plan: -Will f/u ID of GNR in blood cx, which had to be sent to [facility]. -follow-up repeat blood cx. -continue cefepime (D7) for GNR bacteremia -continue penicillin G IV total 14 days for neurosyphilis (D3/14). -Will f/u HIV genotype. -Very complex case patient without insurance and homeless. Annamarie Ahuja MD ID attending [phone]. Subjective Date of service: 12/10/17 Principal diagnosis: septic shock Interval history: Afebrile. Denies N/V/D, SOB, CP, palpitations, abdominal pain. Has mild FAIR and cough. Microbiology: Blood cultures: 12/03 GNR 1 of 4 bottles (sent to [facility] for ID) 12/04 NGTD Urine cultures: 12/03 neg Stool C diff neg Stool Cx 12/03 negative CSF 12/05: Neg CSF crypto ag Neg Current Antimicrobials: Cefepime 12/03- PCN G 12/07- Azithromycin weekly 12/07- Bactrim daily 12/07- Previous Antimicrobials: Zosyn Flagyl Vanco Objective - Exam Narrative Exam: General appearance: AA male, in NAD. A&Ox3. Eyes: anicteric sclerae, moist conjunctivae; PERRLA HENT: Atraumatic; oropharynx clear Neck: Trachea midline; supple, no thyromegaly or lymphadenopathy Lungs: CTA, with normal respiratory effort and no intercostal retractions CV: S1,S2. Abdomen: Soft, non-tender; no masses or hepatosplenomegaly Extremities: No peripheral edema or extremity lymphadenopathy Skin: Normal temperature, turgor and texture; no rash, ulcers or subcutaneous nodules Psych: Appropriate affect, alert and oriented to person, place and time. Neuro: alert and oriented x 3. - Constitutional Vitals: Vital Signs Temp Pulse Resp BP Pulse Ox 98.7 F 59 L 20 139/84 99 12/10/17 05:12 12/10/17 05:12 12/10/17 05:12 12/10/17 05:12 12/10/17 05:12 Temperature -Last 24 Hours Temperature 98.7 F Temperature 99.0 F Temperature 98.4 F Temperature 98.8 F - Labs CBC & Chem 7: 12/10/17 08:45 12/10/17 08:45 Labs: Abnormal lab results 12/09/17 12/09/17 Range/Units 08:49 08:49 Hgb 10.0 L (11.8-15.2) gm/dl Hct 31.1 L (35.5-45.6) % MCV 72 L (84-94) fl MCH 23 L (28-32) pg Seg Neuts % (Manual) 75.0 H (40.0-70.0) % Lymphocytes % (Manual) 13.0 L (13.4-35.0) % Chloride 107.7 H (98-107) mmol/L Carbon Dioxide 21 L (22-30) mmol/L Glucose 108 H (75-100) mg/dL Calcium 7.7 L (8.4-10.2) mg/dL AST 53 H (5-40) units/L Alkaline Phosphatase 262 H (35-129) units/L Albumin 1.9 L (3.9-5) g/dL
[2017-12-10 09:32] LABS: Hematocrit 31.8 % (35.5-45.6); Hemoglobin 9.9 gm/dl (11.8-15.2); Mean Corpuscular HGB Conc 31 % (32-34); Mean Corpuscular Volume 73 fl (84-94); Platelet Count 316 K/mm3 (140-440); Red Blood Count 4.36 M/mm3 (3.65-5.03); Red Cell Distribution Width 14.5 % (13.2-15.2)
[2017-12-10 09:34] LABS: Mean Corpuscular Hemoglobin 23 pg (28-32)
[2017-12-10] MEDS: MAXIPIME/NS 2 GM/100 ML 2 GM/100 ML BAG IV SCH ×2 (09:36→21:33)
[2017-12-10] MEDS: BACTRIM DS PO SCH (09:38)
[2017-12-10] MEDS: ZESTRIL PO SCH (09:38)
[2017-12-10 09:59] LABS: Alanine Aminotransferase 22 units/L (7-56); Albumin 2.2 g/dL (3.9-5); BUN/Creatinine Ratio 8; Blood Urea Nitrogen 8 mg/dL (9-20); Calcium 7.9 mg/dL (8.4-10.2); Hemolysis Index 11
--- NOTE | 2017-12-10 10:53 | Progress Note ---
Assessment and Plan - Patient Problems (1) Acute renal failure Current Visit: Yes Status: Acute Plan to address problem: Renal function improved with Cr down to 1.0mg/dl. Renal US noted, concerning for likely underlying CKD. Repeat UA and UPC indicating persistent microscopic hematuria and proteinuria of >1 g. no further recommendation from renal stand point at present. will sign off. outpatient f/u for CKD (2) Septic shock Current Visit: Yes Status: Acute Plan to address problem: On broad spectrum antibiotics with ID on board. C.Diff negative. Cultures pending. Per ID, there is concern for neurosyphillis, now status post LP. (3) HIV disease Current Visit: Yes Status: Acute Plan to address problem: Management per infectious disease team. Concern that based on his repeat UA, UPC and renal US that he likey has CKD at baseline, which may be secondary to his HIV disease. reiterated to him the importance of adhering to his HAART therapy to avoid further decline of renal function due to HIVAN. He needs to follow up closely with ID/nephrology as an outpatient. (4) Lactic acidosis Current Visit: Yes Status: Acute Plan to address problem: resolved with appropriate hydration and maintenance of hemodynamics. Subjective Date of service: 12/10/17 Principal diagnosis: septic shock Interval history: Pt awake, alert, in NAD Objective - Vital Signs Vital signs: Vital Signs - 12hr 12/10/17 05:12 Temperature 98.7 F Pulse Rate 59 L Respiratory 20 Rate Blood Pressure 139/84 O2 Sat by Pulse 99 Oximetry - General Appearance General appearance: well-developed, well-nourished, appears stated age EENT: ATNC, PERRL, mucous membranes moist Neck: no JVD Respiratory: Present: Clear to Ascultation Cardiology: regular, S1S2 Gastrointestinal: normoactive bowel sounds Integumentary: no rash, other (no edema ) Neurologic: no focal deficit, alert and oriented x3, strength 5/5, CN 3-12 intact Psychiatric: mood/affect appropriate, cooperative - Lab 12/10/17 08:45 12/10/17 08:45 Most recent lab results Calcium 7.9 mg/dL (8.4-10.2) L 12/10/17 08:45 Phosphorus 3.20 mg/dL (2.5-4.5) 12/09/17 08:49 Magnesium 1.80 mg/dL (1.7-2.3) 12/09/17 08:49 Urine Creatinine 137.4 mg/dL (0.1-20.0) H 12/06/17 19:45 Urine Total Protein 173 mg/dL (5-11.8) H 12/06/17 19:45
--- NOTE | 2017-12-10 12:30 | Progress Note ---
Assessment and Plan Patient is a 27 year old male with past medical hx of HIV non compliant with medications and also hx of IVDA, last use a day prior to presentation, presents to the ED via EMS with possible drug overdose. The patient's mother allegedly called EMS. When EMS got to him he was diaphoretic, tachycardic and lethargic. He was given Narcan with some response. The patient admitted to EMS, ED doctor and now also to myself that he did crystal meth this evening by ingestion and that he has a history of using meth. Patient presents with a fever, tachycardia and Hypotension. He says he's been dealing with a cough and diarrhea over the past few days. He has a history of HIV but does not take any medications for it and is not followed by any primary care physician or infectious disease, He initial was monitored by patrick. No recent travel or sick contacts at home. In the ED the patient was started on sepsis protocol with 4.5 Liters of fluids given but remained hypotensive with SBP in the 80s requiring Initiation of PRESSORS. Now off pressors. Transfered to floor. SEPTIC SHOCK- resolved Neurosyphilis continue with iv Penicillin till 12/21/17 per ID Acute Metabolic Encephalopathy - resolved Severe Sepsis resolving Bacteremia with GNR Bilateral lobar Pneumonia MIKE secondary to vasomotor nephropathy-Improved AIDS Severe cardiomyopathy Hyperbiliribuemia-hida scan no evidence of cholecystitis Non complaint Hepatits C Vaoegzxw-Gqhqvtd-[id number] C.DIFF Anemia of chronic Disease IV druge abuse with - CRYSTAL METH LEUKOPENIA secodnary to HIV/AIDS Plan * Patient started on penicillin due highly suspicious for neurosyphilis. Will need 14 days of abx. CSF cultures pending' * PICC line Once cultures negative. 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 reinfection vs reactivation. likely neurosyphilis in light of AMS and advanced AIDS * cardiology consult- No thrombosis on PA * supplement K * C-Diff negative * NEPHROLOGY CONSULT-noted * stool negative for C-DIFF * Professional Tutor and ID consult-input noted * Lymphocytes subset labs * Counselling provided about IVDA,HIV, Hep c and medication Compliance * Replace electrolytes as needed * DVT/GI prophy * Plan of care discussed with patient. will ocntinue with iv Penicilllin G for 11 more days ending 12/21/17 Subjective Date of service: 12/10/17 Principal diagnosis: septic shock Interval history: Seen on examined. Denies any fever. No chest pain or shortness of breath. Objective - Exam Narrative Exam: Constitutional: Well-nourished well-developed. In no distress Head: Normocephalic atraumatic Eyes: Pupils are equal round and reactive to light Nose: No enlarged turbinates, no septal deviation. Mouth: Moist mucous membranes. Neck: Supple no thyromegaly. No bruit. No JVD Heart: Regular rate and rhythm, S1-S2 abnormal. No rubs murmurs or gallop Lungs: Clear to auscultation bilaterally no rales or rhonchi Abdomen: Soft, nontender. Bowel sound are present. Extremities: No edema no cyanosis and no clubbing. Neuro: Alert oriented Oriented x3. No focal sensory or motor deficit. Skin: No rashes no hyperemic spots Psychiatry: Euthymic. Calm. - Constitutional Vitals: Vital Signs - 12hr 12/10/17 12/10/17 05:12 11:55 Temperature 98.7 F 98.6 F Pulse Rate 59 L 56 L Respiratory 20 15 Rate Blood Pressure 139/84 126/76 O2 Sat by Pulse 99 99 Oximetry - Labs CBC & Chem 7: 12/10/17 08:45 12/10/17 08:45 Labs: Abnormal lab results 12/10/17 12/10/17 Range/Units 08:45 08:45 Hgb 9.9 L (11.8-15.2) gm/dl Hct 31.8 L (35.5-45.6) % MCV 73 L (84-94) fl MCH 23 L (28-32) pg MCHC 31 L (32-34) % Carbon Dioxide 21 L (22-30) mmol/L BUN 8 L (9-20) mg/dL Calcium 7.9 L (8.4-10.2) mg/dL AST 48 H (5-40) units/L Alkaline Phosphatase 248 H (35-129) units/L Albumin 2.2 L (3.9-5) g/dL
[2017-12-10 12:50] LABS: Anisocytosis 1+; Total Cells Counted 100
[2017-12-10 12:51] LABS: Large Platelets Few; Platelet Estimate Cons; Target Cells Few
[2017-12-11] MEDS: PFIZERPEN 4 MIL.UNITS in NACL 0.9% 50 ML IV SCH ×7 (05:33→21:13)
[2017-12-11 06:10] LABS: Basophils # (Auto) 0.1 K/mm3 (0.0-0.1); Basophils % (Auto) 0.7 % (0.0-1.8); Eosinophils # (Auto) 0.5 K/mm3 (0.0-0.4); Eosinophils % (Auto) 5.5 % (0.0-4.3); Hematocrit 30.1 % (35.5-45.6); Hemoglobin 9.6 gm/dl (11.8-15.2); Lymphocytes # (Auto) 2.1 K/mm3 (1.2-5.4); Lymphocytes % (Auto) 23.2 % (13.4-35.0); Mean Corpuscular HGB Conc 32 % (32-34); Mean Corpuscular Volume 72 fl (84-94); Monocytes # (Auto) 1.1 K/mm3 (0.0-0.8); Monocytes % (Auto) 11.6 % (0.0-7.3); Platelet Count 330 K/mm3 (140-440); Red Blood Count 4.16 M/mm3 (3.65-5.03); Red Cell Distribution Width 14.7 % (13.2-15.2)
[2017-12-11 06:13] LABS: Mean Corpuscular Hemoglobin 23 pg (28-32)
[2017-12-11 06:41] LABS: Alanine Aminotransferase 19 units/L (7-56); Albumin 2.1 g/dL (3.9-5); BUN/Creatinine Ratio 10; Blood Urea Nitrogen 12 mg/dL (9-20); Calcium 7.7 mg/dL (8.4-10.2); Hemolysis Index 5
[2017-12-11] MEDS: MAXIPIME/NS 2 GM/100 ML 2 GM/100 ML BAG IV SCH ×2 (10:01→21:13)
[2017-12-11] MEDS: BACTRIM DS PO SCH (10:01)
[2017-12-11] MEDS: ZESTRIL PO SCH (10:01)
--- NOTE | 2017-12-11 11:01 | Progress Note ---
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 reinfection vs reactivation. likely neurosyphilis in light of AMS and advanced AIDS. His VDRL was nondetectable in the CHF Acute toxic/metabolic Encephalopathy - resolved - likley from sepsis and crystal meth ingestion Bacteremia with GNR, likely source from IVDA - on cefepime, 2d ecjho w/o any vegetation Bilateral lobar Pneumonia, cont abx MIKE secondary to vasomotor nephropathy-Improved AIDS not on ARv, counselled for compliance and outpt f/u - cont Azithromycine, and bactrim Severe cardiomyopathy - monitor ins/os, daily wt - cardiology following, cont lisinopril. - Avoid beta blockers in the setting of methamphetamine abuse Hepatits C with Hyperbiliribuemia-hida scan no evidence of cholecystitis Non complaint, counselled Cxzddcqu-Qyguoql-WUMZYHVE C.DIFF, stable Anemia of chronic Disease, monitor H/h IV druge abuse with - CRYSTAL METH LEUKOPENIA secodnary to HIV/AIDS Replace electrolytes as needed DVT/GI prophy brief History: Patient is a 27 year old male with past medical hx of HIV non compliant with medications and also hx of IVDA, last use a day prior to presentation, presents to the ED via EMS with possible drug overdose with crystal meth. When EMS got to him he was diaphoretic, tachycardic and lethargic. He was given Narcan with some response. In the ED the patient was started on sepsis protocol with 4.5 Liters of fluids given but remained hypotensive with SBP in the 80s requiring Initiation of PRESSORS. Now off pressors. Transfered to floor. Being treated for neurosyphyilis with IV abx. Physical Exam Constitutional: Well-nourished well-developed. In no distress Head: Normocephalic atraumatic Eyes: Pupils are equal round and reactive to light Nose: No enlarged turbinates, no septal deviation. Mouth: Moist mucous membranes. Neck: Supple no thyromegaly. No bruit. No JVD Heart: Regular rate and rhythm, S1-S2 abnormal. No rubs murmurs or gallop Lungs: Clear to auscultation bilaterally no rales or rhonchi Abdomen: Soft, nontender. Bowel sound are present. Extremities: No edema no cyanosis and no clubbing. Neuro: Alert oriented Oriented x3. No focal sensory or motor deficit. Skin: No rashes no hyperemic spots Psychiatry: Euthymic. Calm. Subjective Date of service: 12/11/17 Principal diagnosis: septic shock Interval history: Seen on examined. Denies any fever. No chest pain or shortness of breath. Tolerating diet Objective - Constitutional Vitals: Vital Signs - 12hr 12/11/17 12/11/17 01:03 06:01 Temperature 98.7 F 98.6 F Pulse Rate 75 76 Respiratory 18 20 Rate Blood Pressure 125/72 128/82 O2 Sat by Pulse 96 99 Oximetry - Labs CBC & Chem 7: 12/11/17 04:49 12/11/17 04:49 Labs: Abnormal lab results 12/10/17 12/11/17 12/11/17 Range/Units 08:45 04:49 04:49 Hgb 9.6 L (11.8-15.2) gm/dl Hct 30.1 L (35.5-45.6) % MCV 72 L (84-94) fl MCH 23 L (28-32) pg Jack % (Auto) 11.6 H (0.0-7.3) % Eos % (Auto) 5.5 H (0.0-4.3) % Jack # 1.1 H (0.0-0.8) K/mm3 Eos # 0.5 H (0.0-0.4) K/mm3 Seg Neuts % (Manual) 71.0 H (40.0-70.0) % Lymphocytes % (Manual) 12.0 L (13.4-35.0) % Eosinophils % (Manual) 7.0 H (0.0-4.3) % Lymphocytes # (Manual) 1.1 L (1.2-5.4) K/mm3 Eosinophils # (Manual) 0.7 H (0.0-0.4) K/mm3 Calcium 7.7 L (8.4-10.2) mg/dL AST 43 H (5-40) units/L Alkaline Phosphatase 219 H (35-129) units/L Albumin 2.1 L (3.9-5) g/dL
[2017-12-11] MEDS: TYLENOL PO PRN (21:23)
[2017-12-12] MEDS: PFIZERPEN 4 MIL.UNITS in NACL 0.9% 50 ML IV SCH ×6 (01:52→23:31)
[2017-12-12] MEDS: ZESTRIL PO SCH (10:47)
[2017-12-12] MEDS: BACTRIM DS PO SCH (10:48)
--- NOTE | 2017-12-12 11:51 | Progress Note ---
Assessment and Plan Assessment: 1) Severe Sepsis with septic shock: shock resolved. New fever and leukocytosis, resolved. Etiology GNR bacteremia. -CRP=4.3 -Nnxddg=776 2) GNR bacteremia: source ? IV meth -TTE EF 245-30%. -PA no intracardiac mass. Normal variation of cardiac anatomy. - Microbiology lab unable to ID GNR. Isolated was sent to [email or web address]. 3) Acute encephalopathy: from meth intoxication/withdrawal +/- neurosyphilis -CSF WBC 16, crypto ag neg. CSF VDRL negative. 4) MIKE - resolved. 5) HIV non compliant with medications, lost HIV clinic f/u with [facility] 2 years ago and stopped his ART 2 years ago after losing his medical insurance -CD4=71/13% -SK=000,000 6) Meth dependence w recent intoxication 7) Multiple sexual partners, he does not use condom consistently. 8) Elevated LFTs - ? sepsis ? hepatitis C. 9) Hep C antobodies positive. 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 reinfection vs reactivation. Likely neurosyphilis in light of AMS, advanced AIDS and CSF wbc 16 11) GB thickening ? cholecystitis - HIDA neg 12) Acute diarrhea: started after IV meth ? meth withdrawal. C diff negative, resolved Plan: -Will f/u ID of GNR in blood cx, which had to be sent to [email or web address]. -continue cefepime (D9/14) for GNR bacteremia -continue penicillin G IV total 14 days for neurosyphilis (D5/14). -Will f/u HIV genotype. -Very complex case patient without insurance and homeless. Annamarie Ahjua MD ID attending [phone]. Subjective Date of service: 12/12/17 Principal diagnosis: septic shock Interval history: Afebrile. c/o FAIR. Microbiology: Blood cultures: 12/03 GNR 1 of 4 bottles (sent to [email or web address] for ID) 12/04 Neg Urine cultures: 12/03 neg Stool C diff neg Stool Cx 12/03 negative CSF 12/05: Neg CSF crypto ag Neg Current Antimicrobials: Cefepime 12/03- PCN G 12/07- Azithromycin weekly 12/07- Bactrim daily 12/07- Previous Antimicrobials: Zosyn Flagyl Vanco Objective - Exam Narrative Exam: General appearance: AA male, in NAD. A&Ox3. Eyes: anicteric sclerae, moist conjunctivae; PERRLA HENT: Atraumatic; oropharynx clear Neck: Trachea midline; supple, no thyromegaly or lymphadenopathy Lungs: CTA, with normal respiratory effort and no intercostal retractions CV: S1,S2. Abdomen: Soft, non-tender; no masses or hepatosplenomegaly Extremities: No peripheral edema or extremity lymphadenopathy Skin: Normal temperature, turgor and texture; no rash, ulcers or subcutaneous nodules Psych: Appropriate affect, alert and oriented to person, place and time. Neuro: alert and oriented x 3. - Constitutional Vitals: Vital Signs Temp Pulse Resp BP Pulse Ox 98.5 F 75 18 127/75 99 12/12/17 06:17 12/12/17 10:47 12/12/17 06:17 12/12/17 10:47 12/12/17 06:17 Temperature -Last 24 Hours Temperature 98.5 F Temperature 98.9 F Temperature 98.6 F Temperature 98.9 F - Labs CBC & Chem 7: 12/11/17 04:49 12/11/17 04:49
[2017-12-12] MEDS: MAXIPIME/NS 2 GM/100 ML 2 GM/100 ML BAG IV SCH ×2 (11:58→22:26)
--- NOTE | 2017-12-12 12:27 | Progress Note ---
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 reinfection vs reactivation. likely neurosyphilis in light of AMS and advanced AIDS. His VDRL was nondetectable in the CHF Acute toxic/metabolic Encephalopathy - resolved - likley from sepsis and crystal meth ingestion Bacteremia with GNR, likely source from IVDA - on cefepime, 2d ecjho w/o any vegetation Bilateral lobar Pneumonia, cont abx MIKE secondary to vasomotor nephropathy-Improved AIDS not on ARv, counselled for compliance and outpt f/u - cont Azithromycine, and bactrim Severe cardiomyopathy - monitor ins/os, daily wt - cardiology following, cont lisinopril. - Avoid beta blockers in the setting of methamphetamine abuse Hepatits C with Hyperbiliribuemia-hida scan no evidence of cholecystitis Non complaint, counselled [id number] C.DIFF, stable Anemia of chronic Disease, monitor H/h IV druge abuse with - CRYSTAL METH LEUKOPENIA secodnary to HIV/AIDS Replace electrolytes as needed DVT/GI prophy brief History: Patient is a 27 year old male with past medical hx of HIV non compliant with medications and also hx of IVDA, last use a day prior to presentation, presents to the ED via EMS with possible drug overdose with crystal meth. When EMS got to him he was diaphoretic, tachycardic and lethargic. He was given Narcan with some response. In the ED the patient was started on sepsis protocol with 4.5 Liters of fluids given but remained hypotensive with SBP in the 80s requiring Initiation of PRESSORS. Now off pressors. Transferred to floor. Being treated for neurosyphyilis with IV abx. Physical Exam Constitutional: Well-nourished well-developed. In no distress Head: Normocephalic atraumatic Eyes: Pupils are equal round and reactive to light Nose: No enlarged turbinates, no septal deviation. Mouth: Moist mucous membranes. Neck: Supple no thyromegaly. No bruit. No JVD Heart: Regular rate and rhythm, S1-S2 abnormal. No rubs murmurs or gallop Lungs: Clear to auscultation bilaterally no rales or rhonchi Abdomen: Soft, nontender. Bowel sound are present. Extremities: No edema no cyanosis and no clubbing. Neuro: Alert oriented Oriented x3. No focal sensory or motor deficit. Skin: No rashes no hyperemic spots Psychiatry: Euthymic. Calm. Subjective Date of service: 12/12/17 Principal diagnosis: septic shock Interval history: patient Seen and examined. Denies any fever. No chest pain or shortness of breath. Tolerating diet, no diarrhea Objective - Constitutional Vitals: Vital Signs - 12hr 12/12/17 12/12/17 06:17 10:47 Temperature 98.5 F Pulse Rate 77 75 Respiratory 18 Rate Blood Pressure 116/67 127/75 O2 Sat by Pulse 99 Oximetry - Labs CBC & Chem 7: 12/11/17 04:49 12/11/17 04:49
[2017-12-13] MEDS: PFIZERPEN 4 MIL.UNITS in NACL 0.9% 50 ML IV SCH ×6 (00:08→21:29)
[2017-12-13] MEDS: BACTRIM DS PO SCH (09:16)
[2017-12-13] MEDS: ZESTRIL PO SCH (09:19)
[2017-12-13] MEDS: TYLENOL PO PRN (09:26)
[2017-12-13] MEDS: MAXIPIME/NS 2 GM/100 ML 2 GM/100 ML BAG IV SCH ×2 (10:02→22:08)
--- NOTE | 2017-12-13 17:16 | Progress Note ---
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 reinfection vs reactivation. likely neurosyphilis in light of AMS and advanced AIDS. His VDRL was nondetectable in the CHF Acute toxic/metabolic Encephalopathy - resolved - likley from sepsis and crystal meth ingestion Bacteremia with GNR, likely source from IVDA - on cefepime, 2d ecjho w/o any vegetation Bilateral lobar Pneumonia, cont abx MIKE secondary to vasomotor nephropathy-Improved AIDS not on ARv, counselled for compliance and outpt f/u - cont Azithromycine, and bactrim Severe cardiomyopathy - monitor ins/os, daily wt - cardiology following, cont lisinopril. - Avoid beta blockers in the setting of methamphetamine abuse Hepatits C with Hyperbiliribuemia-hida scan no evidence of cholecystitis Non complaint, counselled [id number] C.DIFF, stable Anemia of chronic Disease, monitor H/h IV druge abuse with - CRYSTAL METH LEUKOPENIA secodnary to HIV/AIDS Replace electrolytes as needed DVT/GI prophy brief History: Patient is a 27 year old male with past medical hx of HIV non compliant with medications and also hx of IVDA, last use a day prior to presentation, presents to the ED via EMS with possible drug overdose with crystal meth. When EMS got to him he was diaphoretic, tachycardic and lethargic. He was given Narcan with some response. In the ED the patient was started on sepsis protocol with 4.5 Liters of fluids given but remained hypotensive with SBP in the 80s requiring Initiation of PRESSORS. Now off pressors. Transferred to floor. Being treated for neurosyphyilis with IV abx. Physical Exam Constitutional: Well-nourished well-developed. In no distress Head: Normocephalic atraumatic Eyes: Pupils are equal round and reactive to light Nose: No enlarged turbinates, no septal deviation. Mouth: Moist mucous membranes. Neck: Supple no thyromegaly. No bruit. No JVD Heart: Regular rate and rhythm, S1-S2 abnormal. No rubs murmurs or gallop Lungs: Clear to auscultation bilaterally no rales or rhonchi Abdomen: Soft, nontender. Bowel sound are present. Extremities: No edema no cyanosis and no clubbing. Neuro: Alert oriented Oriented x3. No focal sensory or motor deficit. Skin: No rashes no hyperemic spots Psychiatry: Euthymic. Calm. Subjective Date of service: 12/13/17 Principal diagnosis: septic shock Interval history: patient Seen and examined. Denies any fever. No chest pain or shortness of breath. Tolerating diet, no diarrhea c/o headache this am Objective - Constitutional Vitals: Vital Signs - 12hr 12/13/17 12/13/17 12/13/17 05:24 09:19 12:00 Temperature 98.8 F 98.6 F Pulse Rate 82 76 88 Respiratory 16 20 Rate Blood Pressure 119/63 115/63 105/60 O2 Sat by Pulse 98 100 Oximetry - Labs CBC & Chem 7: 12/11/17 04:49 12/11/17 04:49
[2017-12-13] MEDS: FIORICET PO PRN ×2 (18:11→22:08)
[2017-12-14] MEDS: PFIZERPEN 4 MIL.UNITS in NACL 0.9% 50 ML IV SCH ×6 (02:21→22:45)
[2017-12-14] MEDS: BACTRIM DS PO SCH (10:02)
[2017-12-14] MEDS: ZESTRIL PO SCH (10:03)
[2017-12-14] MEDS: MAXIPIME/NS 2 GM/100 ML 2 GM/100 ML BAG IV SCH (10:06)
[2017-12-14] MEDS: ZITHROMAX PO SCH (10:16)
--- NOTE | 2017-12-14 11:12 | Progress Note ---
Assessment and Plan Assessment: 1) Severe Sepsis with septic shock: resolved. Etiology GNR bacteremia. -CRP=4.3 -Pxefxj=192 2) Presumed Enterobactere bacteremia: source ? IV meth -TTE EF 245-30%. -PA no intracardiac mass. Normal variation of cardiac anatomy. - Microbiology lab presumed Enterobacter sens to cefepime, sens to levaquin 3) Acute encephalopathy: from meth intoxication/withdrawal +/- neurosyphilis -CSF WBC 16, crypto ag neg. CSF VDRL negative. 4) MIKE - resolved. 5) HIV non compliant with medications, lost HIV clinic f/u with [facility] 2 years ago and stopped his ART 2 years ago after losing his medical insurance -CD4=71/13% -MC=822,000 6) Meth dependence w recent intoxication 7) Multiple sexual partners, he does not use condom consistently. 8) Elevated LFTs - ? sepsis ? hepatitis C. 9) Hep C antobodies positive. 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 reinfection vs reactivation. Likely neurosyphilis in light of AMS, advanced AIDS and CSF wbc 16 11) GB thickening ? cholecystitis - HIDA neg 12) Acute diarrhea: started after IV meth ? meth withdrawal. C diff negative, resolved Plan: -stop cefepime (D10/14) for GNR bacteremia -start levaquin PO for 4 days -continue penicillin G IV total 14 days for neurosyphilis (D6/14). -Will f/u HIV genotype. -add bactrim DS 1 tab qday for PJP prophylaxis and azithromycin 1200 mg po qweek for MAC prophylaxis -needs to be connected to a free HIV clinic I am signing off Thank you for your consultation, will follow up with you. Mayra Albarado MD Infectious Diseases Specialist [facility] ([facility] M [phone] O [phone] Subjective Date of service: 12/14/17 Principal diagnosis: septic shock Interval history: Feels better, no fever. Microbiology: Blood cultures: 12/03 Enterobacter 1 of 4 bottles 12/04 neg Urine cultures: 12/03 neg Stool C diff neg CSF 12/05: ngtd Current Antimicrobials: cefepime 12/03 pen G Previous Antimicrobials: Zosyn Flagyl Vanco Objective - Exam Narrative Exam: General appearance: Alert in NAD, conversant Eyes: anicteric sclerae, moist conjunctivae; no lid-lag; PERRLA HENT: Atraumatic; oropharynx clear Neck: Trachea midline; supple, no thyromegaly or lymphadenopathy Lungs: CTA, with normal respiratory effort and no intercostal retractions CV: tachy Abdomen: Soft, non-tender; no masses or hepatosplenomegaly Extremities: No peripheral edema or extremity lymphadenopathy Skin: Normal temperature, turgor and texture; no rash, ulcers or subcutaneous nodules Psych: Appropriate affect, alert and oriented to person, place and time. Neuro: alert and oriented x 3. Moving all extermities Lines: - Constitutional Vitals: Vital Signs Temp Pulse Resp BP Pulse Ox 98.1 F 94 H 16 118/67 100 12/14/17 05:17 12/14/17 10:03 12/14/17 05:17 12/14/17 10:03 12/14/17 05:17 Temperature -Last 24 Hours Temperature 98.1 F Temperature 98.6 F Temperature 98.9 F Temperature 98.6 F - Labs CBC & Chem 7: 12/11/17 04:49 12/11/17 04:49
[2017-12-14] MEDS: LEVAQUIN PO SCH (13:48)
[2017-12-14] MEDS: FIORICET PO PRN ×2 (13:59→22:49)
--- NOTE | 2017-12-14 14:48 | Progress Note ---
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 reinfection vs reactivation. likely neurosyphilis in light of AMS and advanced AIDS. His VDRL was nondetectable in the CHF Acute toxic/metabolic Encephalopathy - resolved - likley from sepsis and crystal meth ingestion Bacteremia with GNR, likely source from IVDA - Initiated on cefepime, now changed to levaquin to complete total 2 weeks Rx - 2d echo w/o any vegetation Bilateral lobar Pneumonia, treated with abx MIKE secondary to vasomotor nephropathy-Improved AIDS not on ARv, counselled for compliance and outpt f/u - cont Azithromycine, and bactrim for Px Severe cardiomyopathy - monitor ins/os, daily wt - cardiology following, cont lisinopril. - Avoid beta blockers in the setting of methamphetamine abuse Hepatits C with Hyperbiliribuemia-hida scan no evidence of cholecystitis Non complaint, counselled [id number] C.DIFF, stable Anemia of chronic Disease, monitor H/h IV druge abuse with - CRYSTAL METH LEUKOPENIA secodnary to HIV/AIDS Replace electrolytes as needed DVT/GI prophy brief History: Patient is a 27 year old male with past medical hx of HIV non compliant with medications and also hx of IVDA, last use a day prior to presentation, presents to the ED via EMS with possible drug overdose with crystal meth. When EMS got to him he was diaphoretic, tachycardic and lethargic. He was given Narcan with some response. In the ED the patient was started on sepsis protocol with 4.5 Liters of fluids given but remained hypotensive with SBP in the 80s requiring Initiation of PRESSORS. Now off pressors. Transferred to floor. Being treated for neurosyphyilis with IV abx. Physical Exam Constitutional: Well-nourished well-developed. In no distress Head: Normocephalic atraumatic Eyes: Pupils are equal round and reactive to light Nose: No enlarged turbinates, no septal deviation. Mouth: Moist mucous membranes. Neck: Supple no thyromegaly. No bruit. No JVD Heart: Regular rate and rhythm, S1-S2 abnormal. No rubs murmurs or gallop Lungs: Clear to auscultation bilaterally no rales or rhonchi Abdomen: Soft, nontender. Bowel sound are present. Extremities: No edema no cyanosis and no clubbing. Neuro: Alert oriented Oriented x3. No focal sensory or motor deficit. Skin: No rashes no hyperemic spots Psychiatry: Euthymic. Calm. Subjective Date of service: 12/14/17 Principal diagnosis: septic shock Interval history: patient Seen and examined. Denies any fever. No chest pain or shortness of breath. Tolerating diet, no diarrhea denies headache this am Objective - Constitutional Vitals: Vital Signs - 12hr 12/14/17 12/14/17 12/14/17 05:17 10:03 12:34 Temperature 98.1 F 97.6 F Pulse Rate 94 H 94 H 85 Respiratory 16 20 Rate Blood Pressure 118/67 118/67 112/64 O2 Sat by Pulse 100 100 Oximetry - Labs CBC & Chem 7: 12/11/17 04:49 12/11/17 04:49
[2017-12-14] MEDS ORDERED: BENADRYL PO PRN (17:38)
[2017-12-14] MEDS ORDERED: BANOPHEN FEEDTUBE PRN (17:47)
[2017-12-14] MEDS ORDERED: BANOPHEN PO PRN (18:00)
[2017-12-15] MEDS: PFIZERPEN 4 MIL.UNITS in NACL 0.9% 50 ML IV SCH ×6 (01:50→21:53)
[2017-12-15] MEDS: ZESTRIL PO SCH (10:01)
[2017-12-15] MEDS: LEVAQUIN PO SCH (10:03)
[2017-12-15] MEDS: BACTRIM DS PO SCH (10:03)
[2017-12-15] MEDS ORDERED: BANOPHEN PO PRN (10:33)
--- NOTE | 2017-12-15 11:45 | Progress Note ---
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 reinfection vs reactivation. likely neurosyphilis in light of AMS and advanced AIDS. His VDRL was nondetectable in the CHF Acute toxic/metabolic Encephalopathy - resolved - likley from sepsis and crystal meth ingestion Bacteremia with GNR, likely source from IVDA - Initiated on cefepime, now changed to levaquin to complete total 2 weeks Rx - 2d echo w/o any vegetation Bilateral lobar Pneumonia, treated with abx MIKE secondary to vasomotor nephropathy-Improved AIDS not on ARv, counselled for compliance and outpt f/u - cont Azithromycine, and bactrim for Px Severe cardiomyopathy - monitor ins/os, daily wt - cardiology following, cont lisinopril. - Avoid beta blockers in the setting of methamphetamine abuse Hepatits C with Hyperbiliribuemia-hida scan no evidence of cholecystitis Non complaint, counselled [id number] C.DIFF, stable Anemia of chronic Disease, monitor H/h IV druge abuse with - CRYSTAL METH LEUKOPENIA secodnary to HIV/AIDS Replace electrolytes as needed Itching, likely due to allergic reaction - His antibiotics was changed from cefepime to Levaquin - Not sure patient is allergic to Levaquin, no prior history - We'll place on as needed Benadryl and stop Levaquin DVT/GI prophy brief History: Patient is a 27 year old male with past medical hx of HIV non compliant with medications and also hx of IVDA, last use a day prior to presentation, presents to the ED via EMS with possible drug overdose with crystal meth. When EMS got to him he was diaphoretic, tachycardic and lethargic. He was given Narcan with some response. In the ED the patient was started on sepsis protocol with 4.5 Liters of fluids given but remained hypotensive with SBP in the 80s requiring Initiation of PRESSORS. Now off pressors. Transferred to floor. Being treated for neurosyphyilis with IV abx. Physical Exam Constitutional: Well-nourished well-developed. In no distress Head: Normocephalic atraumatic Eyes: Pupils are equal round and reactive to light Nose: No enlarged turbinates, no septal deviation. Mouth: Moist mucous membranes. Neck: Supple no thyromegaly. No bruit. No JVD Heart: Regular rate and rhythm, S1-S2 abnormal. No rubs murmurs or gallop Lungs: Clear to auscultation bilaterally no rales or rhonchi Abdomen: Soft, nontender. Bowel sound are present. Extremities: No edema no cyanosis and no clubbing. Neuro: Alert oriented Oriented x3. No focal sensory or motor deficit. Skin: No rashes no hyperemic spots Psychiatry: Euthymic. Calm. Subjective Date of service: 12/15/17 Principal diagnosis: septic shock Interval history: patient Seen and examined. Denies any fever. No chest pain or shortness of breath. Tolerating diet, no diarrhea denies any headache this am Started to complain for itching since yesterday afternoon Objective - Labs CBC & Chem 7: 12/11/17 04:49 12/11/17 04:49
[2017-12-16] MEDS: PFIZERPEN 4 MIL.UNITS in NACL 0.9% 50 ML IV SCH ×6 (02:30→22:38)
[2017-12-16 09:24] LABS: Basophils # (Auto) 0.1 K/mm3 (0.0-0.1); Basophils % (Auto) 1.4 % (0.0-1.8); Eosinophils # (Auto) 0.3 K/mm3 (0.0-0.4); Eosinophils % (Auto) 4.7 % (0.0-4.3); Hematocrit 31.5 % (35.5-45.6); Lymphocytes % (Auto) 34.1 % (13.4-35.0); Mean Corpuscular HGB Conc 32 % (32-34); Mean Corpuscular Volume 74 fl (84-94); Monocytes # (Auto) 0.8 K/mm3 (0.0-0.8); Monocytes % (Auto) 13.6 % (0.0-7.3); Platelet Count 661 K/mm3 (140-440); Red Blood Count 4.24 M/mm3 (3.65-5.03); Red Cell Distribution Width 15.5 % (13.2-15.2)
[2017-12-16 09:25] LABS: Mean Corpuscular Hemoglobin 24 pg (28-32)
[2017-12-16] MEDS: ZESTRIL PO SCH (09:44)
[2017-12-16] MEDS: BACTRIM DS PO SCH (09:44)
[2017-12-16 09:50] LABS: BUN/Creatinine Ratio 13; Blood Urea Nitrogen 15 mg/dL (9-20); Calcium 8.6 mg/dL (8.4-10.2); Hemolysis Index 10
--- NOTE | 2017-12-16 14:56 | Progress Note ---
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 reinfection vs reactivation. likely neurosyphilis in light of AMS and advanced AIDS. His VDRL was nondetectable in the CHF Acute toxic/metabolic Encephalopathy - resolved - likley from sepsis and crystal meth ingestion Bacteremia with GNR, likely source from IVDA - Initiated on cefepime, now changed to levaquin to complete total 2 weeks Rx - 2d echo w/o any vegetation Bilateral lobar Pneumonia, treated with abx MIKE secondary to vasomotor nephropathy-Improved AIDS not on ARv, counselled for compliance and outpt f/u - cont Azithromycine, and bactrim for Px Severe cardiomyopathy - monitor ins/os, daily wt - cardiology following, cont lisinopril. - Avoid beta blockers in the setting of methamphetamine abuse Hepatits C with Hyperbiliribuemia-hida scan no evidence of cholecystitis Non complaint, counselled [id number] C.DIFF, stable Anemia of chronic Disease, monitor H/h IV druge abuse with - CRYSTAL METH LEUKOPENIA secodnary to HIV/AIDS Replace electrolytes as needed Itching, likely due to allergic reaction from levaquin - continue as needed Benadryl and stopped Levaquin DVT/GI prophy brief History: Patient is a 27 year old male with past medical hx of HIV non compliant with medications and also hx of IVDA, last use a day prior to presentation, presents to the ED via EMS with possible drug overdose with crystal meth. When EMS got to him he was diaphoretic, tachycardic and lethargic. He was given Narcan with some response. In the ED the patient was started on sepsis protocol with 4.5 Liters of fluids given but remained hypotensive with SBP in the 80s requiring Initiation of PRESSORS. Now off pressors. Transferred to floor. Being treated for neurosyphyilis with IV abx. Physical Exam Constitutional: Well-nourished well-developed. In no distress Head: Normocephalic atraumatic Eyes: Pupils are equal round and reactive to light Nose: No enlarged turbinates, no septal deviation. Mouth: Moist mucous membranes. Neck: Supple no thyromegaly. No bruit. No JVD Heart: Regular rate and rhythm, S1-S2 abnormal. No rubs murmurs or gallop Lungs: Clear to auscultation bilaterally no rales or rhonchi Abdomen: Soft, nontender. Bowel sound are present. Extremities: No edema no cyanosis and no clubbing. Neuro: Alert oriented Oriented x3. No focal sensory or motor deficit. Skin: No rashes no hyperemic spots Psychiatry: Euthymic. Calm. Subjective Date of service: 12/16/17 Principal diagnosis: septic shock Interval history: patient Seen and examined. Denies any fever. No chest pain or shortness of breath. Tolerating diet, no diarrhea, no itching Objective - Constitutional Vitals: Vital Signs - 12hr 12/16/17 12/16/17 12/16/17 06:02 09:44 12:57 Temperature 97.8 F 98.8 F Pulse Rate 80 89 94 H Respiratory 18 16 Rate Blood Pressure 121/65 120/86 120/67 O2 Sat by Pulse 100 99 Oximetry - Labs CBC & Chem 7: 12/16/17 08:55 12/16/17 08:55 Labs: Abnormal lab results 12/16/17 12/16/17 Range/Units 08:55 08:55 Hgb 10.0 L (11.8-15.2) gm/dl Hct 31.5 L (35.5-45.6) % MCV 74 L (84-94) fl MCH 24 L (28-32) pg RDW 15.5 H (13.2-15.2) % Plt Count 661 H (140-440) K/mm3 Morris % (Auto) 13.6 H (0.0-7.3) % Eos % (Auto) 4.7 H (0.0-4.3) % Sodium 135 L (137-145) mmol/L Glucose 113 H (75-100) mg/dL
[2017-12-16] MEDS: LOVENOX SUB-Q SCH (22:38)
[2017-12-16] MEDS: TYLENOL PO PRN (22:38)
[2017-12-17] MEDS: PFIZERPEN 4 MIL.UNITS in NACL 0.9% 50 ML IV SCH ×6 (02:00→21:06)
[2017-12-17] MEDS: BACTRIM DS PO SCH (10:13)
[2017-12-17] MEDS: ZESTRIL PO SCH (10:19)
--- NOTE | 2017-12-17 13:08 | Progress Note ---
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 reinfection vs reactivation. likely neurosyphilis in light of AMS and advanced AIDS. His VDRL was nondetectable in the CHF Acute toxic/metabolic Encephalopathy - resolved - likley from sepsis and crystal meth ingestion Bacteremia with GNR, likely source from IVDA - Initiated on cefepime, then changed to levaquin to complete total 2 weeks Rx - 2d echo w/o any vegetation - stopped levaquin for possible allergic reaction, resume cefepime Bilateral lobar Pneumonia, treated with abx MIKE secondary to vasomotor nephropathy-Improved AIDS not on ARv, counselled for compliance and outpt f/u - cont Azithromycine, and bactrim for Px Severe cardiomyopathy - monitor ins/os, daily wt - cardiology following, cont lisinopril, aspirin and statin - Avoid beta blockers in the setting of methamphetamine abuse Hepatits C with Hyperbiliribuemia-hida scan no evidence of cholecystitis Non complaint, counselled [id number] C.DIFF, stable Anemia of chronic Disease, monitor H/h IV druge abuse with - CRYSTAL METH LEUKOPENIA secodnary to HIV/AIDS Replace electrolytes as needed Itching, likely due to allergic reaction from levaquin - continue as needed Benadryl and stopped Levaquin DVT/GI prophy brief History: Patient is a 27 year old male with past medical hx of HIV non compliant with medications and also hx of IVDA, last use a day prior to presentation, presents to the ED via EMS with possible drug overdose with crystal meth. When EMS got to him he was diaphoretic, tachycardic and lethargic. He was given Narcan with some response. In the ED the patient was started on sepsis protocol with 4.5 Liters of fluids given but remained hypotensive with SBP in the 80s requiring Initiation of PRESSORS. Now off pressors. Transferred to floor. Being treated for neurosyphyilis with IV abx. Physical Exam Constitutional: Well-nourished well-developed. In no distress Head: Normocephalic atraumatic Eyes: Pupils are equal round and reactive to light Nose: No enlarged turbinates, no septal deviation. Mouth: Moist mucous membranes. Neck: Supple no thyromegaly. No bruit. No JVD Heart: Regular rate and rhythm, S1-S2 abnormal. No rubs murmurs or gallop Lungs: Clear to auscultation bilaterally no rales or rhonchi Abdomen: Soft, nontender. Bowel sound are present. Extremities: No edema no cyanosis and no clubbing. Neuro: Alert oriented Oriented x3. No focal sensory or motor deficit. Skin: No rashes no hyperemic spots Psychiatry: Euthymic. Calm. Subjective Date of service: 12/17/17 Principal diagnosis: septic shock Interval history: patient Seen and examined. Denies any fever. No chest pain or shortness of breath. Tolerating diet, no diarrhea, no itching Objective - Constitutional Vitals: Vital Signs - 12hr 12/17/17 12/17/17 12/17/17 05:57 10:19 11:52 Temperature 98.0 F 98.4 F Pulse Rate 94 H 92 H Respiratory 18 16 Rate Blood Pressure 114/66 114/66 122/71 O2 Sat by Pulse 99 100 Oximetry - Labs CBC & Chem 7: 12/16/17 08:55 12/16/17 08:55
[2017-12-17] MEDS: HALFPRIN EC PO SCH (17:44)
[2017-12-17] MEDS: MAXIPIME/NS 1 GM/100 ML 1 GM/100 ML BAG IV SCH (20:59)
[2017-12-17] MEDS: LOVENOX SUB-Q SCH (21:08)
[2017-12-18] MEDS: PFIZERPEN 4 MIL.UNITS in NACL 0.9% 50 ML IV SCH ×6 (01:30→21:17)
[2017-12-18] MEDS: MAXIPIME/NS 1 GM/100 ML 1 GM/100 ML BAG IV SCH ×3 (05:55→21:18)
[2017-12-18] MEDS: ZESTRIL PO SCH (10:11)
[2017-12-18] MEDS: HALFPRIN EC PO SCH (10:12)
[2017-12-18] MEDS: BACTRIM DS PO SCH (10:12)
--- NOTE | 2017-12-18 16:13 | Progress Note ---
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 reinfection vs reactivation. likely neurosyphilis in light of AMS and advanced AIDS. His VDRL was nondetectable in the CHF Acute toxic/metabolic Encephalopathy - resolved - likley from sepsis and crystal meth ingestion Bacteremia with GNR, likely source from IVDA - Initiated on cefepime, then changed to levaquin to complete total 2 weeks Rx - 2d echo w/o any vegetation - stopped levaquin for possible allergic reaction, resumed cefepime Bilateral lobar Pneumonia, treated with abx MIKE secondary to vasomotor nephropathy-Improved AIDS not on ARv, counselled for compliance and outpt f/u - cont Azithromycine, and bactrim for Px Severe cardiomyopathy - monitor ins/os, daily wt - cardiology following, cont lisinopril, aspirin and statin - Avoid beta blockers in the setting of methamphetamine abuse Hepatits C with Hyperbiliribuemia-hida scan no evidence of cholecystitis Non complaint, counselled [id number] C.DIFF, stable Anemia of chronic Disease, monitor H/h IV druge abuse with - CRYSTAL METH LEUKOPENIA secodnary to HIV/AIDS Replace electrolytes as needed Itching, likely due to allergic reaction from levaquin - continue as needed Benadryl and stopped Levaquin DVT/GI prophy brief History: Patient is a 27 year old male with past medical hx of HIV non compliant with medications and also hx of IVDA, last use a day prior to presentation, presents to the ED via EMS with possible drug overdose with crystal meth. When EMS got to him he was diaphoretic, tachycardic and lethargic. He was given Narcan with some response. In the ED the patient was started on sepsis protocol with 4.5 Liters of fluids given but remained hypotensive with SBP in the 80s requiring Initiation of PRESSORS. Now off pressors. Transferred to floor. Being treated for neurosyphyilis with IV abx. Physical Exam Constitutional: Well-nourished well-developed. In no distress Head: Normocephalic atraumatic Eyes: Pupils are equal round and reactive to light Nose: No enlarged turbinates, no septal deviation. Mouth: Moist mucous membranes. Neck: Supple no thyromegaly. No bruit. No JVD Heart: Regular rate and rhythm, S1-S2 abnormal. No rubs murmurs or gallop Lungs: Clear to auscultation bilaterally no rales or rhonchi Abdomen: Soft, nontender. Bowel sound are present. Extremities: No edema no cyanosis and no clubbing. Neuro: Alert oriented Oriented x3. No focal sensory or motor deficit. Skin: No rashes no hyperemic spots Psychiatry: Euthymic. Calm. Subjective Date of service: 12/18/17 Principal diagnosis: septic shock Interval history: patient Seen and examined. Denies any fever. No chest pain or shortness of breath. Tolerating diet, no diarrhea, no itching waiting to go home Objective - Constitutional Vitals: Vital Signs - 12hr 12/18/17 12/18/17 12/18/17 05:45 10:11 11:37 Temperature 98.5 F 98.7 F Pulse Rate 85 94 H Respiratory 20 20 Rate Blood Pressure 117/69 115/70 116/88 O2 Sat by Pulse 99 98 Oximetry - Labs CBC & Chem 7: 12/16/17 08:55 12/16/17 08:55
[2017-12-18] MEDS: LOVENOX SUB-Q SCH (21:17)
[2017-12-19] MEDS: PFIZERPEN 4 MIL.UNITS in NACL 0.9% 50 ML IV SCH ×6 (02:00→22:17)
[2017-12-19] MEDS: MAXIPIME/NS 1 GM/100 ML 1 GM/100 ML BAG IV SCH ×3 (06:33→23:16)
[2017-12-19] MEDS: BACTRIM DS PO SCH (10:15)
[2017-12-19] MEDS: HALFPRIN EC PO SCH (10:15)
[2017-12-19] MEDS: ZESTRIL PO SCH (13:31)
--- NOTE | 2017-12-19 15:29 | Progress Note ---
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 reinfection vs reactivation. likely neurosyphilis in light of AMS and advanced AIDS. Acute toxic/metabolic Encephalopathy - resolved - likely from sepsis and crystal meth ingestion Bacteremia with GNR, likely source from IVDA - Initiated on cefepime, then changed to levaquin to complete total 2 weeks Rx - 2d echo w/o any vegetation - stopped levaquin for possible allergic reaction, resumed cefepime Bilateral lobar Pneumonia, treated with abx MIKE secondary to vasomotor nephropathy-Improved AIDS not on ARv, counselled for compliance and outpt f/u - cont Azithromycine, and bactrim for Px Severe cardiomyopathy - monitor ins/os, daily wt - cardiology following, cont lisinopril, aspirin and statin - Avoid beta blockers in the setting of methamphetamine abuse Hepatits C with Hyperbiliribuemia-hida scan no evidence of cholecystitis Non complaint, counselled [id number] C.DIFF, stable Anemia of chronic Disease, monitor H/h IV druge abuse with - CRYSTAL METH LEUKOPENIA secodnary to HIV/AIDS Replace electrolytes as needed Itching, likely due to allergic reaction from levaquin - continue as needed Benadryl and stopped Levaquin DVT/GI prophy brief History: Patient is a 27 year old male with past medical hx of HIV non compliant with medications and also hx of IVDA, last use a day prior to presentation, presents to the ED via EMS with possible drug overdose with crystal meth. When EMS got to him he was diaphoretic, tachycardic and lethargic. He was given Narcan with some response. In the ED the patient was started on sepsis protocol with 4.5 Liters of fluids given but remained hypotensive with SBP in the 80s requiring Initiation of PRESSORS. Now off pressors. Transferred to floor. Being treated for neurosyphyilis with IV abx. Physical Exam Constitutional: Well-nourished well-developed. In no distress Head: Normocephalic atraumatic Eyes: Pupils are equal round and reactive to light Nose: No enlarged turbinates, no septal deviation. Mouth: Moist mucous membranes. Neck: Supple no thyromegaly. No bruit. No JVD Heart: Regular rate and rhythm, S1-S2 abnormal. No rubs murmurs or gallop Lungs: Clear to auscultation bilaterally no rales or rhonchi Abdomen: Soft, nontender. Bowel sound are present. Extremities: No edema no cyanosis and no clubbing. Neuro: Alert oriented Oriented x3. No focal sensory or motor deficit. Skin: No rashes no hyperemic spots Psychiatry: Euthymic. Calm. Subjective Date of service: 12/19/17 Principal diagnosis: septic shock Interval history: patient Seen and examined. Denies any fever. No chest pain or shortness of breath. Tolerating diet, no diarrhea, no itching waiting to go home Objective - Constitutional Vitals: Vital Signs - 12hr 12/19/17 12/19/17 12/19/17 05:23 11:15 13:31 Temperature 98.4 F 98.7 F Pulse Rate 86 96 H 88 Respiratory 16 16 Rate Blood Pressure 122/49 131/80 124/70 O2 Sat by Pulse 98 96 Oximetry - Labs CBC & Chem 7: 12/16/17 08:55 12/16/17 08:55
[2017-12-19] MEDS: LOVENOX SUB-Q SCH (22:17)
[2017-12-20] MEDS: PFIZERPEN 4 MIL.UNITS in NACL 0.9% 50 ML IV SCH ×6 (01:00→21:38)
[2017-12-20] MEDS: MAXIPIME/NS 1 GM/100 ML 1 GM/100 ML BAG IV SCH ×2 (05:05→14:20)
[2017-12-20] MEDS: HALFPRIN EC PO SCH (09:48)
[2017-12-20] MEDS: ZESTRIL PO SCH (09:49)
[2017-12-20] MEDS: BACTRIM DS PO SCH (09:49)
--- NOTE | 2017-12-20 13:36 | Progress Note ---
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 reinfection vs reactivation. likely neurosyphilis in light of AMS and advanced AIDS. Acute toxic/metabolic Encephalopathy - resolved - likely from sepsis and crystal meth ingestion Bacteremia with GNR, likely source from IVDA - Initiated on cefepime, then changed to levaquin to complete total 2 weeks Rx - 2d echo w/o any vegetation - stopped levaquin for possible allergic reaction, resumed cefepime Bilateral lobar Pneumonia, treated with abx MIKE secondary to vasomotor nephropathy-Improved AIDS not on ARv, counselled for compliance and outpt f/u - cont Azithromycine, and bactrim for Px Severe cardiomyopathy - monitor ins/os, daily wt - cardiology following, cont lisinopril, aspirin and statin - Avoid beta blockers in the setting of methamphetamine abuse Hepatits C with Hyperbiliribuemia-hida scan no evidence of cholecystitis Non complaint, counselled [id number] C.DIFF, stable Anemia of chronic Disease, monitor H/h IV druge abuse with - CRYSTAL METH LEUKOPENIA secodnary to HIV/AIDS Replace electrolytes as needed Itching, likely due to allergic reaction from levaquin - continue as needed Benadryl and stopped Levaquin DVT/GI prophy brief History: Patient is a 27 year old male with past medical hx of HIV non compliant with medications and also hx of IVDA, last use a day prior to presentation, presents to the ED via EMS with possible drug overdose with crystal meth. When EMS got to him he was diaphoretic, tachycardic and lethargic. He was given Narcan with some response. In the ED the patient was started on sepsis protocol with 4.5 Liters of fluids given but remained hypotensive with SBP in the 80s requiring Initiation of PRESSORS. Now off pressors. Transferred to floor. Being treated for neurosyphyilis with IV abx. Physical Exam Constitutional: Well-nourished well-developed. In no distress Head: Normocephalic atraumatic Eyes: Pupils are equal round and reactive to light Nose: No enlarged turbinates, no septal deviation. Mouth: Moist mucous membranes. Neck: Supple no thyromegaly. No bruit. No JVD Heart: Regular rate and rhythm, S1-S2 abnormal. No rubs murmurs or gallop Lungs: Clear to auscultation bilaterally no rales or rhonchi Abdomen: Soft, nontender. Bowel sound are present. Extremities: No edema no cyanosis and no clubbing. Neuro: Alert oriented Oriented x3. No focal sensory or motor deficit. Skin: No rashes no hyperemic spots Psychiatry: Euthymic. Calm. Subjective Date of service: 12/20/17 Principal diagnosis: septic shock Interval history: patient Seen and examined. Denies any fever. No chest pain or shortness of breath. Tolerating diet, no diarrhea, no itching waiting to go home Objective - Constitutional Vitals: Vital Signs - 12hr 12/20/17 12/20/17 12/20/17 06:10 09:49 11:38 Temperature 97.9 F 99.1 F Pulse Rate 85 78 108 H Respiratory 18 20 Rate Blood Pressure 123/69 96/47 131/72 O2 Sat by Pulse 99 98 Oximetry - Labs CBC & Chem 7: 12/16/17 08:55 12/16/17 08:55
[2017-12-20] MEDS: LOVENOX SUB-Q SCH (21:23)
[2017-12-20] MEDS: FIORICET PO PRN (21:23)
[2017-12-21] MEDS: PFIZERPEN 4 MIL.UNITS in NACL 0.9% 50 ML IV SCH ×5 (05:00→19:37)
[2017-12-21 05:15] LABS: Hematocrit 30.7 % (35.5-45.6); Hemoglobin 9.8 gm/dl (11.8-15.2); Mean Corpuscular HGB Conc 32 % (32-34); Mean Corpuscular Volume 74 fl (84-94); Platelet Count 604 K/mm3 (140-440); Red Blood Count 4.15 M/mm3 (3.65-5.03); Red Cell Distribution Width 15.2 % (13.2-15.2)
[2017-12-21 05:27] LABS: BUN/Creatinine Ratio 13; Blood Urea Nitrogen 17 mg/dL (9-20); Calcium 8.3 mg/dL (8.4-10.2); Hemolysis Index 6
[2017-12-21 05:39] LABS: Mean Corpuscular Hemoglobin 24 pg (28-32)
[2017-12-21 07:38] LABS: Anisocytosis 1+; Basophils % (Manual) 0 % (0.0-1.8); Hypochromasia 1+; Large Platelets Rare; Total Cells Counted 100
[2017-12-21 07:39] LABS: Platelet Estimate Appears Increased
[2017-12-21] MEDS: FIORICET PO PRN (08:52)
[2017-12-21] MEDS: HALFPRIN EC PO SCH (09:40)
[2017-12-21] MEDS: BACTRIM DS PO SCH (09:40)
[2017-12-21] MEDS: ZESTRIL PO SCH (09:41)
[2017-12-21] MEDS: ZITHROMAX PO SCH (10:01)
--- NOTE | 2017-12-21 12:06 | Discharge Summary ---
Providers - Providers Date of Admission: 12/03/17 08:15 Date of discharge: 12/21/17 Attending physician: BON ROBERTSON 12/03/17 08:17 Consult to Physician [CONS] Routine Comment: Dr. Whelan is here @ 09:25- [facility] Consulting Provider: SIMI VEGA Physician Instructions: Reason For Exam: septic shock 12/04/17 08:27 Consult to Physician [CONS] Routine Comment: Consulting Provider: KATJA FARMER Physician Instructions: Reason For Exam: MIKE 12/07/17 17:03 Consult to Infection Control Nurse [CONS] Routine Reason For Exam: neurospyhilis 12/14/17 11:14 Consult to Case Management [CONS] Stat Services Needed at Discharge: Other Notified:: educational therapist Additional Physician Instructions: -upon discharge needs bactrim DS 1 tab qday for PJP prophylaxis and azithromycin 1200 mg po qweek for MAC prophylaxis -needs to be connected to a free HIV clinic Primary care physician: WOOD FUEL PELLETIZER Hospitalization Condition: Serious Hospital course: brief History: Patient is a 27 year old male with past medical hx of HIV non compliant with medications and also hx of IVDA, last use a day prior to presentation, presents to the ED via EMS with possible drug overdose with crystal meth. When EMS got to him he was diaphoretic, tachycardic and lethargic. He was given Narcan with some response. In the ED the patient was started on sepsis protocol with 4.5 Liters of fluids given but remained hypotensive with SBP in the 80s requiring Initiation of PRESSORS. Now off pressors. Transferred to floor. Being treated for neurosyphyilis with IV abx. 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 reinfection vs reactivation. likely neurosyphilis in light of AMS and advanced AIDS. Acute toxic/metabolic Encephalopathy - resolved - likely from sepsis and crystal meth ingestion Bacteremia with GNR, likely source from IVDA - Initiated on cefepime, then changed to levaquin to complete total 2 weeks Rx - 2d echo w/o any vegetation - stopped levaquin for possible allergic reaction, resumed cefepime Bilateral lobar Pneumonia, treated with abx MIKE secondary to vasomotor nephropathy-Improved AIDS not on ARv, counselled for compliance and outpt f/u - cont Azithromycine, and bactrim for Px Severe cardiomyopathy with Ef 25-30% - monitor ins/os, daily wt - cardiology following, cont lisinopril, aspirin and statin - Avoid beta blockers in the setting of methamphetamine abuse Hepatits C with Hyperbiliribuemia-hida scan no evidence of cholecystitis Non complaint, counselled [id number] C.DIFF, stable Anemia of chronic Disease, monitor H/h IV druge abuse with - CRYSTAL METH LEUKOPENIA secodnary to HIV/AIDS Replace electrolytes as needed Itching, likely due to allergic reaction from levaquin - continue as needed Benadryl and stopped Levaquin DVT/GI prophy Physical Exam Constitutional: Well-nourished well-developed. In no distress Head: Normocephalic atraumatic Eyes: Pupils are equal round and reactive to light Nose: No enlarged turbinates, no septal deviation. Mouth: Moist mucous membranes. Neck: Supple no thyromegaly. No bruit. No JVD Heart: Regular rate and rhythm, S1-S2 abnormal. No rubs murmurs or gallop Lungs: Clear to auscultation bilaterally no rales or rhonchi Abdomen: Soft, nontender. Bowel sound are present. Extremities: No edema no cyanosis and no clubbing. Neuro: Alert oriented Oriented x3. No focal sensory or motor deficit. Skin: No rashes no hyperemic spots Psychiatry: Euthymic. Calm. Disposition: - TO HOME OR SELFCARE Time spent for discharge: 34 minutes Core Measure Documentation - Palliative Care Palliative Care/ Comfort Measures: Not Applicable - Core Measures Any of the following diagnoses?: none Exam - Constitutional Vitals: Temp Pulse Resp BP Pulse Ox 98.3 F 75 16 125/66 98 12/20/17 23:18 12/21/17 09:41 12/20/17 23:18 12/21/17 09:41 12/20/17 23:18 Plan Activity: advance as tolerated Weight Bearing Status: Weight Bear as Tolerated Diet: regular Follow up with: PRIMARY CARE, [Primary Care Provider] - 3-5 Days Prescriptions: AtorvaSTATin [Lipitor] 40 mg PO QHS #30 tablet Aspirin EC [Aspirin Enteric Coated TAB] 81 mg PO QDAY #30 tablet Azithromycin [Zithromax TAB] 1,200 mg PO Fr #10 tablet Lisinopril [Zestril TAB] 5 mg PO QDAY #30 tablet Sulfamethoxazole/Trimethoprim [Bactrim DS TAB] 1 each PO Q24HR #30 tablet
[2017-12-21] MEDS ORDERED: PFIZERPEN 4 MIL.UNITS in NACL 0.9% 50 ML IV SCH (15:00)
[2017-12-21 17:59] VITALS: BP 122/71
== END 2017-12-21 20:52 | disposition home or self-care (01) | DRG 974 ==
LOC: ED 00:22 → CC1 08:15 → 4A 12-04 14:15 → 3A 12-07 16:59
PROVIDERS: ADMIT Internal Medicine; ATTEND Internal Medicine
PROC: 06HY33Z Insertion of Infusion Device into Lower Vein, Percutaneous Approach (ICD-10-PCS; 2017-12-03)
PROC: 3E0234Z Introduction of Serum, Toxoid and Vaccine into Muscle, Percutaneous Approach (ICD-10-PCS; 2017-12-04)
PROC: 009U3ZX Drainage of Spinal Canal, Percutaneous Approach, Diagnostic (ICD-10-PCS; principal; 2017-12-05)
PROC: B01B1ZZ Fluoroscopy of Spinal Cord using Low Osmolar Contrast (ICD-10-PCS; 2017-12-05)
DX: A41.9 Sepsis, unspecified organism (principal); R65.21 Severe sepsis with septic shock; B20 Human immunodeficiency virus [HIV] disease; G92 Toxic encephalopathy; J18.1 Lobar pneumonia, unspecified organism; N17.0 Acute kidney failure with tubular necrosis; I42.9 Cardiomyopathy, unspecified; B19.20 Unspecified viral hepatitis C without hepatic coma; E80.6 Other disorders of bilirubin metabolism; K52.9 Noninfective gastroenteritis and colitis, unspecified; D63.8 Anemia in other chronic diseases classified elsewhere; T36.8X5A Adverse effect of other systemic antibiotics, initial encounter; R74.0 Nonspecific elevation of levels of transaminase and lactic acid dehydrogenase [LDH]; F15.90 Other stimulant use, unspecified, uncomplicated; Z91.14 Patient's other noncompliance with medication regimen; Z71.89 Other specified counseling; Y92.89 Other specified places as the place of occurrence of the external cause; Z23 Encounter for immunization
CPT/HCPCS: 36415; 62270; 70450; 71045; 74019; 76700; 76770; 77003; 78226; 80048; 80053; 80074; 80307; 80320; 81001; 82024; 82140; 82550; 82570; 82947; 83735; 84100; 84156; 84160; 84484; 85007; 85025; 85027; 85610; 85730; 86140; 86403; 86592; 86593; 86780; 86850; 86900; 86901; 87040; 87045; 87076; 87086; 87116; 87324; 87536; 87901; 89051; 90732; 93005; 93010; 93306; 93312; 93320; 93325; 94760; A9270-GY; A9537; G0480; J0692; J1650; J2060; J2540; J2543; J2704; J3370; J3411; J3480; J7030; J7040; J7050; Q0163